=== PATIENT | female | born 1995 | race Caucasian/White ===

== ENCOUNTER 2022-12-06 12:33 | Observation (INO) ==
[2022-12-06] MEDS ORDERED: VANCOMYCIN HCL 2,250 MG in SODIUM CHLORIDE 0.9% 500 ML IV ONE (12:48)
[2022-12-06] MEDS ORDERED: AMPICILLIN/SULBACTAM SOD 3,000 MG in 0.9 % SODIUM CHLORIDE 100 ML IV STA (12:48)
[2022-12-06] MEDS ORDERED: VANCOMYCIN CONSULT ACTIVE PRN ×2 (12:48→21:04)
--- NOTE | 2022-12-06 12:52 | Emergency Department Note ---
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 This started this past Wednesday night. She was seen and evaluated on Wednesday. She was placed on eardrops. She was once again evaluated on as the swelling and redness had worsened and she had pain and swelling behind the ear. At that time she was placed on Augmentin. She followed up on Wednesday with the ENT down in [place] who recommended admission and IV antibiotics. She presented to [facility] and was discharged home with Augmentin again and she presents to the ER today as she had a culture which was MRSA positive. Patient notes that she still has a ton of pressure and cannot hear out of her ear as well as pain but believes that the redness has abated slightly. PAST MEDICAL HISTORY:See Below PAST SURGICAL HISTORY:See Below FAMILY HISTORY:See Below SOCIAL HISTORY:See Below HOME MEDICATIONS:See Below ALLERGIES:See Below VITALS:See Below PHYSICAL EXAMINATION: GENERAL: Sitting up in bed, alert, well appearing, well nourished, no distress, non-toxic EYE EXAM: normal conjunctiva. PERRL and EOM's grossly intact. EAR: Swelling over the right mastoid with faint erythema. Canal is swollen with erythema and purulence is noted behind the TM which is bulging. OROPHARYNX: no exudate, no erythema, lips, buccal mucosa, and tongue normal and mucous membranes are moist NECK: supple, no nuchal rigidity, no adenopathy, non-tender LUNGS: Clear to auscultation. Normal chest wall mechanics HEART: no murmurs, S1 normal and S2 normal ABDOMEN: abdomen soft, non-tender, normo-active bowel sounds, no masses, no rebound or guarding. UPPER EXTREMITIES: upper extremities are grossly normal. LOWER EXTREMITIES: No pitting edema. NEURO EXAM: Normal sensorium, cranial nerves II-XII grossly intact, normal speech, no gross weakness of arms, no gross weakness of legs. MEDICAL DECISION MAKING: Patient is a 26-year-old female who presents ER for above-stated complaint. IV was established blood work was obtained. On exam patient does appear to have a mastoiditis with swelling and tenderness behind the right ear with a small amount of erythema. Patient was discussed with Dr. Mckeon from ENT as the patient has had MRSA positive culture and does have mastoiditis. I notified her that I was admitting the patient to hospital service and she was in agreement. Patient was given IV Unasyn and IV vancomycin. She was updated at bedside. Labs show no significant leukocytosis. Mild anemia 11. BMP with mild hypokalemia 3.3. LFTs bilirubin was unremarkable. UA was contaminated. Patient is currently 16 weeks . She was discussed with the hospitalist for further evaluation management and treatment of mastoiditis. As the patient believes the erythema has improved slightly we will hold on any additional imaging and defer to ENT and the hospitalist. I did also see a picture of the patient's ear on one of my previous shifts and I do agree as well the erythema h as improved. Triage Nursing notes reviewed. Limited review of prior medical records performed Vital Signs: reviewed and remarkable for no significant abnormalities Differential diagnosis: Foreign body, otitis media, otitis externa, mastoiditis, tumor, trauma, TM perforation, as well as other pathologies. ER treatment provided: See below Diagnostics interpreted by me include EKG and cardiac monitoring as listed below: -Cardiac Monitoring: An order was placed for continuous cardiac monitoring. The monitor shows a rate of 92 with sinus rhythm. -ECG: none -Laboratory studies:Interpreted by me as stated above in MDM and shown below. Imaging studies: Xrays: As interpreted by me:none CTs show: none Consultation(s): As described in MDM Procedures:none Critical Care: None Past Med/Surg History Social History Smoking Status: Former smoker Tobacco Type: Cigarettes Preferred Language: Nauruan Feels Safe at Home: Yes Allergies Allergies Allergy/AdvReac Type Severity Reaction Status Date / Time nickel Allergy Intermediate Rash Verified 12/06/22 13:21 Cephalosporins Allergy Unknown CAN'T Verified 12/06/22 13:21 REMEMBER Home Meds Home Medications Medication Instructions Recorded Confirmed aspirin 81 mg chewable tablet 81 mg PO DAILY 12/03/22 12/06/22 vit no.133-ferrous 1 tab PO DAILY 12/03/22 12/06/22 fumarate 28 mg-folic acid 800 mcg tablet () Previous Rx's Medication Instructions Recorded amoxicillin 875 mg-potassium 1 tab PO BID 10 days #20 tabs 12/03/22 clavulanate 125 mg tablet Results & Data (ED) Vital Signs Vital Signs - 24 hr 12/06/22 12:35 12/06/22 15:32 Temperature 36.5 C Temperature Source Temporal Artery Scan Pulse Rate 106 H 95 H Respiratory Rate 20 18 Respiratory Effort / Characteristics Non-Labored Respiratory Depth Normal Blood Pressure 157/91 H 130/85 Blood Pressure Mean 113 Pulse Oximetry 100 99 Oxygen Delivery Method Room Air Room Air Sepsis Recent Fever Within 48 Hours No Sepsis New/Unexplained Change in Mental Status N/A Sepsis Action Taken by Nursing No Action Required Laboratory Data 12/06/22 13:10 12/06/22 13:10 Lab Results 12/06/22 12/06/22 12/06/22 Range/Units 13:10 13:10 13:10 WBC 9.86 (4.8-10.8) K/ul RBC 3.69 L (4.20-5.40) M/uL Hgb 11.7 L (12.0-16.0) g/dl Hct 33.4 L (37.0-47.0) % MCV 90.5 (80.0-100.0) fL MCH 31.7 (25.0-34.0) pg MCHC 35.0 (32.0-36.0) g/dL RDW Std Deviation 40.0 (36.4-46.3) fL RDW Coeff of Roz 12.1 (11.5-14.5) % Plt Count 309 (130-400) K/uL MPV 9.6 (9.4-12.4) fL Immature Gran % (Auto) 0.4 % Neut % (Auto) 74.2 % Lymph % (Auto) 20.9 % [place] % (Auto) 2.9 % Eos % (Auto) 1.3 % Baso % (Auto) 0.3 % Neut # (Auto) 7.31 H (1.40-6.50) K/uL Lymph # (Auto) 2.06 (1.2-3.4) K/uL [place] # (Auto) 0.29 (0.11-0.59) K/uL Eos # (Auto) 0.13 (0-0.50) K/uL Baso # (Auto) 0.03 (0-0.2) K/uL Immature Gran # (Auto) 0.04 (0.01-0.20) K/uL Sodium 136 (136-145) mmol/L Potassium 3.3 L (3.5-5.1) mmol/L Chloride 105 (98-107) mmol/L Carbon Dioxide 23 (21-32) mmol/L Anion Gap 8 (3-11) BUN 8 (6-23) mg/dl Creatinine 0.49 L (0.6-1.2) mg/dl Est Cr Clr Drug Dosing 203.0 ml/min Est GFR ( Amer) > 150.0 ml/min Est GFR (Non-Af Amer) 135.4 ml/min BUN/Creatinine Ratio 16.3 (10-20) Glucose 111 H (70-99(Fasting)) mg/dl Calcium 9.2 (8.6-10.3) mg/dl Total Bilirubin 0.2 (0.2-1.0) mg/dl AST 17 (13-39) U/L ALT 23 (7-52) U/L Alkaline Phosphatase 89 (34-104) U/L Total Protein 7.0 (6.0-8.3) gm/dl Albumin 3.7 (3.4-5.0) gm/dl Globulin 3.3 (2.5-4.0) gm/dl Albumin/Globulin Ratio 1.1 (0.9-2) Urine Color Yellow Urine Appearance Cloudy A (Clear) Urine pH 7.0 (4.5-7.5) Ur Specific [place] 1.023 (1.000-1.030) Urine Protein Negative (Negative) Urine Glucose (UA) Negative (Negative) Urine Ketones 1+ H (Negative) Urine Blood Negative (Negative) Urine Nitrite Negative (Negative) Urine Bilirubin Negative (Negative) Urine Urobilinogen Negative (Negative) Ur Leukocyte Esterase 1+ H (Negative) Urine WBC (Auto) >30 H (0-5) /hpf Urine RBC (Auto) 5-10 H (0-4) /hpf U Hyaline Cast (Auto) 1-5 (0-5) /lpf U Epithel Cells (Auto) >30 H (0-5) /lpf Urine Bacteria (Auto) 2+ H (Negative) Urine Yeast Budding w/ Hyphae A (None Prsent) Administered Medications Discontinued Medications Vancomycin HCl 2,250 mg/ (Sodium Chloride) 545 mls @ 200 mls/hr IV NOW ONE Stop: 12/06/22 15:31 Last Admin: 12/06/22 14:04 Dose: 200 mls/hr Documented By: WILMAR Ampicillin Sodium/Sulbactam Sodium 3,000 mg/ Sodium Chloride 108 mls @ 200 mls/hr IV NOW STA; Protocol Stop: 12/06/22 13:20 Last Infusion: 12/06/22 14:18 Dose: 0 mls/hr Documented By: Admin: 12/06/22 13:25 Dose: 200 mls/hr Documented By: AMANDA Discharge Plan Visit Data Chief Complaint: Ear Pain/Problem Stated Complaint: RIGHT EAR PAIN - CALLED BY ER FOR ANTIBIOTICS ED Provider: Chang Vo Discharge Problem: Mastoiditis Discharge Instructions Interventions: ED Discharge Assessment Last Done: 12/06/22 15:32 Forms Stand Alone Forms: My [facility] [place] [employer] Prescriptions Prescriptions: No Action aspirin 81 mg Tablet,Chewable 81 mg PO DAILY 28-800 mg-mcg Tablet 1 tab PO DAILY amoxicillin-pot clavulanate 875-125 mg tablet 1 tab PO BID 10 Days Qty: 20 0RF Rx Instructions: PER PT "TOLD TO STOP MED, THEN TOLD TO KEEP TAKING". Start Date 12/04/22 - End Date 12/14/22 Referrals Referrals: Froy Carpenter [Primary Care Provider] -
[2022-12-06 13:33] LABS: Basophils # (auto) 0.03 K/uL (0-0.2); Basophils % (auto) 0.3 %; Eosinophils # (auto) 0.13 K/uL (0-0.50); Eosinophils % (auto) 1.3 %; Hematocrit (blood only) 33.4 % (37.0-47.0); Hemoglobin 11.7 g/dl (12.0-16.0); Immature Granulocytes # (auto) 0.04 K/uL (0.01-0.20); Immature Granulocytes % (auto) 0.4 %; Lymphocytes # (auto) 2.06 K/uL (1.2-3.4); Lymphocytes % (auto) 20.9 %; Mean Corpuscular Hemoglobin 31.7 pg (25.0-34.0); Mean Corpuscular Volume 90.5 fL (80.0-100.0); Mean Platelet Volume 9.6 fL (9.4-12.4); Monocytes # (auto) 0.29 K/uL (0.11-0.59); Monocytes % (auto) 2.9 %; Neutrophils # (auto) 7.31 K/uL (1.40-6.50); Neutrophils % (auto) 74.2 %; Platelet Count 309 K/uL (130-400); RDW Coefficient of Variation 12.1 % (11.5-14.5); Red Blood Count 3.69 M/uL (4.20-5.40); White Blood Count 9.86 K/ul (4.8-10.8)
[2022-12-06 13:40] LABS: Appearance Urine Cloudy (Clear); Bilirubin Urine Negative (Negative); Blood Urine Negative (Negative); Color Urine Yellow; Epithelial Cell Urine Auto >30 /lpf (0-5); Glucose Urine UA Negative (Negative); Ketones Urine 1+ (Negative); Leukocyte Esterase Urine 1+ (Negative); Nitrite Urine Negative (Negative); Protein Urine Negative (Negative); Specific Gravity Urine 1.023 (1.000-1.030); Urobilinogen Urine Negative (Negative); WBC Urine Automated >30 /hpf (0-5)
--- NOTE | 2022-12-06 13:44 | History & Physical Report ---
Date of Service December 06, 2022 Assessment & Plan (1) Otitis media of right ear: Plan: Acute otitis media, right mastoiditis No leukocytosis No evidence of intracranial thrombosis/abscess. Thin sliver of superior right ear temporal scalp fluid favoring edema but from which abscess cannot be ruled out as noted below broad coverage with additional MRSA coverage given culture positive with Unasyn/vancomycin CThead: 1. There is skin thickening within the cartilaginous portion of the right external auditory canal and right ear with surrounding fat stranding. Subcutaneous fat stranding/edema abuts the right mastoid bone. This favors a cellulitis. An otitis externa could also have a similar appearance. 2. Thin sliver of subcutaneous fluid superior to the right ear within the right temporal scalp. This measures 3 mm in thickness and 3.5 cm in length. This favors soft tissue edema from the infectious process. A small developing subcutaneous abscess could also have a similar appearance. 3. There are few mildly enlarged right parotid lymph nodes measuring up to 8 mm in short axis diameter. These may be reactive. 4. There is moderate narrowing of the right external auditory canal. There are a few partially opacified right mastoid air cells. No erosive changes identified within the right mastoid air cells or middle ear cavity. 5. Near-complete opacification of the right middle air cavity with a trace right mastoid effusion. This favors an otitis media. - ENT: Dr. Guerrero consulted while in ER inpatient abx, no surgery or inpatient ENT consult required at this time. If patient improves can follow-up as outpatient, if worsening or signs of abscess will need inpatient ENT consult Continue Unasyn/vancomycin. Discussed of risks/benefits with the patient at bedside. Agreeable to treatment Admit to medical surgical Tylenol as needed for fever Regular diet First , G1, P0 and second trimester ADD 05/22/2023 Approximately 16 weeks, now in second trimester Follows with [facility] Del [facility] Recommended for aspirin 81 mg daily due to increased risk per last note review Per patient request OB notified of patient's admission. We will add daily heart tones while inpatient, no acute OB concerns/requirements at this Continue aspirin daily DVT prophylaxis: SCDs, patient on aspirin 8 daily Disposition: Medical/surgical CODE STATUS: Full code Diet: Regular (2) Mastoiditis: (3) : (4) Second trimester : History of Present Illness Primary Care Provider: Froy Gibbs is a 26-year-old female who presents for worsening right ear pain. She reports that she has had a problem with recurrent ear infections feeling antibiotics in the last few weeks, no prior history of recurrent ear infections before this year. No history of recurrent infections otherwise as an adult. She is seen in the ER 5 days ago and placed on eardrops. Symptoms worsened 3-4 days ago, and patient was switched to Augmentin. She did see ENT [facility] Wednesday who recommended admission and IV antibiotics at that time. She presented to [facility] and was discharged home with a additional course of Augmentin, and she returns to the ER with MRSA positive culture, worsening pressure and hearing loss in the ER. She was recommended for admission for IV antibiotics given MRSA culture and continued worsening symptoms with concern for mastoiditis. On clinical exam mastoid is with erythema, TM is bulging with erythema and purulence. Her pain is 2/10 currently, she reports this is improved from the worst which was 810/10 several days ago. She is not currently having fever, chills, sweats. No chest pain or chest pressure no nausea/vomiting. Her ear feels full with diminished hearing out of the right ear. She is 16weeks sees [facility] del rosario. This is her first . no prior history of blood clots or miscarriages. Records requested. No prior history of miscarriages, bleeding, clots no prior history of immunodeficiency or autoimmune disease No fevers, chills sweats Medical History: Reviewed Medications: Reviewed Surgical History: Reviewed Family history: Reviewed Allergies: Reviewed Social History: Former tobacco use, no recent tobacco or etoh use Code Status: Full Code Allergies Allergy/AdvReac Type Severity Reaction Status Date / Time nickel Allergy Intermediate Rash Verified 12/06/22 13:21 Cephalosporins Allergy Unknown CAN'T Verified 12/06/22 13:21 REMEMBER Home Medications Medication Instructions Recorded Confirmed Type amoxicillin 875 mg-potassium 1 tab PO BID 10 days #20 tabs 12/03/22 12/06/22 Rx clavulanate 125 mg tablet aspirin 81 mg chewable tablet 81 mg PO DAILY 12/03/22 12/06/22 History vit no.133-ferrous 1 tab PO DAILY 12/03/22 12/06/22 History fumarate 28 mg-folic acid 800 mcg tablet () Past Med/Surg History Social History Smoking Status: Former smoker Tobacco Type: Cigarettes Preferred Language: Citizen Of [place] Feels Safe at Home: Yes Physical Exam Physical Exam: General: A&Ox3. NAD. Cooperative. HEENT: Atraumatic, normocephalic. Vision/hearing grossly intact. Right TM bulging with purulence. Right mastoid with slight swelling, scant erythema, and pressure-like feeling to palpation "1/10 "pain on palpation Pulm: CTAB A&P. -wheezes, -rales, -rhonchi. Symmetrical chest rise. No increased work of breathing. No respiratory distress. Cardiac: RRR, -mrg. Radial pulses intact and symmetrical. Abdominal: Nontender, softly distended, soft. BS present.. Patient approximately 16 weeks . Extremities: Warm, dry Results & Data Results & Data Vital Signs (Past 12 Hours) Vital Signs Temp Pulse Resp BP Pulse Ox O2 Del Method 12/06/22 12:35 36.5 C 106 H 20 157/91 H 100 Room Air PG Care Time/CCT Total # of Minutes Spent Total Time Spent with Patient: Total time spent is greater than 50% in coordination of care (as documented) at patient's floor/unit and/or counseling patient: Coding Level of Care Code 48377 INT INP/OBS CARE 3/75MIN Diagnoses Otitis media of right ear H66.91 Mastoiditis H70.90 Z34.90 Second trimester Z34.92
[2022-12-06 13:54] LABS: Alanine Aminotransferase 23 U/L (7-52); Albumin Globulin Ratio 1.1 (0.9-2); Albumin Level 3.7 gm/dl (3.4-5.0); Alkaline Phosphatase 89 U/L (34-104); Anion Gap 8 (3-11); Aspartate Aminotransferase 17 U/L (13-39); BUN Creatinine Ratio 16.3 (10-20); Bilirubin,Total 0.2 mg/dl (0.2-1.0); Blood Urea Nitrogen 8 mg/dl (6-23); Calcium 9.2 mg/dl (8.6-10.3); Carbon Dioxide 23 mmol/L (21-32); Chloride 105 mmol/L (98-107); Est GFR (African American) > 150.0 ml/min; Est GFR (Non-African American) 135.4 ml/min; Globulin 3.3 gm/dl (2.5-4.0); Glucose 111 mg/dl (70-99(Fasting)); Potassium 3.3 mmol/L (3.5-5.1); Sodium 136 mmol/L (136-145)
[2022-12-06 14:08] LABS: Bacteria Urine Automated 2+ (Negative)
[2022-12-06] MEDS ORDERED: diphenhydrAMINE 50 MG/ML VIAL IV STA (16:03)
[2022-12-06] MEDS ORDERED: FAMOTIDINE 20 MG in SYRINGE 3 ML IV ONE (16:04)
--- NOTE | 2022-12-06 17:11 | Pharmacy Report ---
Pharmacy PK ABX Note - Date of Service December 06, 2022 - Assessment and Plan Assessment 26 year old F receiving Unasyn and vancomycin for treatment of otitis externa, mastoiditis. 12/04 ear culture (+) MRSA (culture obtained while patient was on Augmentin). Renal function stable. 16 weeks . Day #1 of antimicrobial therapy. Plan Vancomycin * Loading dose: 2250 mg IV x 1 * Developed Red Man's during loading dose infusion -- will reduce rates of maintenance doses. * Although AUC monitoring is preferred, is an exclusion. * Maintenance dose: 1500 mg (~14mg/kg) IV every 12 hours due to likely accumulation * Will obtain a trough prior to the 4th dose Pharmacy will continue to follow and will adjust dose/frequency as necessary. Thank you.
[2022-12-06] MEDS ORDERED: ACETAMINOPHEN 325 MG TAB PO PRN (21:04)
[2022-12-06] MEDS: AMPICILLIN/SULBACTAM SOD 3,000 MG in 0.9 % SODIUM CHLORIDE 100 ML IV SCH (21:32)
[2022-12-07] MEDS ORDERED: VANCOMYCIN HCL 1,500 MG in SODIUM CHLORIDE 0.9% 500 ML IV SCH ×2 (04:00)
[2022-12-07] MEDS: AMPICILLIN/SULBACTAM SOD 3,000 MG in 0.9 % SODIUM CHLORIDE 100 ML IV SCH ×4 (04:17→21:54)
[2022-12-07] MEDS: VANCOMYCIN HCL 1,500 MG in SODIUM CHLORIDE 0.9% 500 ML IV SCH ×2 (05:57→16:43)
[2022-12-07 06:33] LABS: Basophils # (auto) 0.05 K/uL (0-0.2); Basophils % (auto) 0.6 %; Eosinophils # (auto) 0.23 K/uL (0-0.50); Eosinophils % (auto) 2.7 %; Hematocrit (blood only) 29.5 % (37.0-47.0); Hemoglobin 10.4 g/dl (12.0-16.0); Immature Granulocytes # (auto) 0.03 K/uL (0.01-0.20); Immature Granulocytes % (auto) 0.4 %; Lymphocytes # (auto) 2.28 K/uL (1.2-3.4); Mean Corpuscular Hemoglobin 31.3 pg (25.0-34.0); Mean Corpuscular Hgb Conc 35.3 g/dL (32.0-36.0); Mean Corpuscular Volume 88.9 fL (80.0-100.0); Mean Platelet Volume 9.3 fL (9.4-12.4); Monocytes # (auto) 0.44 K/uL (0.11-0.59); Monocytes % (auto) 5.2 %; Neutrophils % (auto) 64.1 %; Platelet Count 273 K/uL (130-400); RDW Standard Deviation 38.6 fL (36.4-46.3); Red Blood Count 3.32 M/uL (4.20-5.40); White Blood Count 8.43 K/ul (4.8-10.8)
[2022-12-07 06:57] LABS: Anion Gap 8 (3-11); BUN Creatinine Ratio 16.7 (10-20); Blood Urea Nitrogen 6 mg/dl (6-23); Calcium 8.3 mg/dl (8.6-10.3); Carbon Dioxide 22 mmol/L (21-32); Chloride 107 mmol/L (98-107); Creatinine Clr Calc Pharmacy 276.3 ml/min; Est GFR (African American) > 150.0 ml/min; Est GFR (Non-African American) 149.9 ml/min; Glucose 79 mg/dl (70-99(Fasting)); Potassium 3.3 mmol/L (3.5-5.1); Sodium 137 mmol/L (136-145)
[2022-12-07] MEDS: ASPIRIN 81 MG ECTAB PO SCH (09:32)
[2022-12-07] MEDS: POTASSIUM CHLORIDE CRTAB 20 MEQ TABCR PO SCH (10:37)
[2022-12-07] MEDS: PRENATAL VITAMIN 1 TAB PO SCH (10:38)
--- NOTE | 2022-12-07 14:22 | Hospitalist Progress Note ---
Date of Service December 07, 2022 Assessment & Plan (1) Otitis media of right ear: Plan: clinically improving leukocytosis resolved no fevers cont IV unasyn cont IV vanco tylenol prn pain at discharge transition to PO clindamycin to cover typical pathogens + MRSA? will need f/u with [facility] post-discharge (2) Otitis externa of right ear: Plan: clinically improved cont IV abx as above will examine the ear canal tomorrow will need ENT f/u post-discharge (3) Mastoiditis: Plan: right clinically resolved, or she never had such to begin with mastoid process on right is normal today (4) : Plan: 16 weeks heart tones daily f/u [facility] post-discharge (5) Second trimester : Plan: add back PNV (6) Hypokalemia: Plan: replace repeat BMP am (7) Candiduria: Plan: no UTI symptoms will simply repeat the urine culture rather than starting Rx Plan d/c tomorrow? Admission and Anticipated Discharge Date Admission Date: December 06, 2022 Subjective right ear pain improved right ear canal pain improved right mastoid discomfort resolved no fevers feeling much better overall eating well denies any urinary symptoms pt reports having had multiple rounds of antibiotic drops for the right ear over the last few months also treated for AOM b/l at some point in the last few months as well prior to this only had AOM randomly over her lifetime Review of Systems Review of Systems: gen - no fevers or chills cv - no chest pain pulm - no dyspnea or cough HENT - no sinus pain or sinus congestion GI - no abd pain or N/V/Diarrhea - no dysuria 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 - 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 Physical Exam Physical Exam: gen - obese, NAD, nontoxic head - NO TENDERNESS To palpation over the right mastoid process; NO swelling over the right mastoid process; no swelling over the right scalp; no ear assymmetry HENT - right ear - no pain to palpation of tragus or with manipulation of pinnae; no ear canal drainage or purulence sinuses - no tenderness to palpation over any sinus mouth- MMM heart - RRR, s1 s2 lungs - CTA b/l abd - soft NT ND BS+ ext - no edema, pulses 2+ b/l Results & Data Results & Data Vital Signs (Past 12 Hours) Vital Signs Temp Pulse Pulse Resp BP Pulse Ox O2 Del Method 08/14/23 10:54 36.8 C 83 14 114/75 98 Room Air 12/07/22 07:53 85 12/07/22 07:27 37.0 C 90 14 113/76 98 Room Air 12/07/22 03:27 36.9 C 89 18 116/73 98 Room Air Laboratory Results Laboratory Results - last 24 hr 12/07/22 12/07/22 06:17 06:17 WBC 8.43 RBC 3.32 L Hgb 10.4 L Hct 29.5 L MCV 88.9 MCH 31.3 MCHC 35.3 RDW Std Deviation 38.6 RDW Coeff of Roz 12.0 Plt Count 273 MPV 9.3 L Immature Gran % (Auto) 0.4 Neut % (Auto) 64.1 Lymph % (Auto) 27.0 [place] % (Auto) 5.2 Eos % (Auto) 2.7 Baso % (Auto) 0.6 Neut # (Auto) 5.40 Lymph # (Auto) 2.28 [place] # (Auto) 0.44 Eos # (Auto) 0.23 Baso # (Auto) 0.05 Immature Gran # (Auto) 0.03 Sodium 137 Potassium 3.3 L Chloride 107 Carbon Dioxide 22 Anion Gap 8 BUN 6 Creatinine 0.36 L Est Cr Clr Drug Dosing 276.3 Est GFR ( Amer) > 150.0 Est GFR (Non-Af Amer) 149.9 BUN/Creatinine Ratio 16.7 Glucose 79 Calcium 8.3 L PG Care Time/CCT Total # of Minutes Spent Total Time Spent with Patient: Total time spent is greater than 50% in coordination of care (as documented) at patient's floor/unit and/or counseling patient: Coding Level of Care Code 99365 SUB INP/OBS CARE 2MIN Diagnoses Otitis media of right ear H66.91 Otitis externa of right ear H60.501 Chronicity: acute Otitis externa type: unspecified type Mastoiditis H70.90 Z34.90 Second trimester Z34.92 Hypokalemia E87.6 Candiduria B37.49 (2) Otitis externa of right ear Chronicity: acute Otitis externa type: unspecified type Qualified Code(s): H60.501 - Unspecified acute noninfective otitis externa, right ear
[2022-12-07 21:30] LABS: Appearance Urine Clear (Clear); Bacteria Urine Automated Negative (Negative); Bilirubin Urine Negative (Negative); Blood Urine Negative (Negative); Cast Urine Automated 0 /lpf (0-5); Color Urine Yellow; Epithelial Cell Urine Auto >30 /lpf (0-5); Glucose Urine UA Negative (Negative); Ketones Urine Negative (Negative); Leukocyte Esterase Urine 1+ (Negative); Nitrite Urine Negative (Negative); Protein Urine Negative (Negative); RBC Urine Automated 0-4 /hpf (0-4); Specific Gravity Urine 1.016 (1.000-1.030); Urobilinogen Urine Negative (Negative); pH Urine 7.5 (4.5-7.5)
[2022-12-08] MEDS: AMPICILLIN/SULBACTAM SOD 3,000 MG in 0.9 % SODIUM CHLORIDE 100 ML IV SCH ×2 (03:00→12:08)
[2022-12-08] MEDS ORDERED: VANCOMYCIN LEVEL ONE (05:00)
[2022-12-08] MEDS: VANCOMYCIN HCL 1,500 MG in SODIUM CHLORIDE 0.9% 500 ML IV SCH (05:57)
[2022-12-08 06:23] LABS: Anion Gap 8 (3-11); BUN Creatinine Ratio 15.9 (10-20); Blood Urea Nitrogen 7 mg/dl (6-23); Calcium 8.5 mg/dl (8.6-10.3); Carbon Dioxide 21 mmol/L (21-32); Chloride 108 mmol/L (98-107); Est GFR (African American) > 150.0 ml/min; Est GFR (Non-African American) 140.3 ml/min; Glucose 80 mg/dl (70-99(Fasting)); Magnesium 1.7 mg/dl (1.7-2.4); Potassium 3.6 mmol/L (3.5-5.1); Sodium 137 mmol/L (136-145)
[2022-12-08] MEDS: POTASSIUM CHLORIDE CRTAB 20 MEQ TABCR PO SCH (08:27)
[2022-12-08] MEDS: ASPIRIN 81 MG ECTAB PO SCH (08:27)
[2022-12-08] MEDS: PRENATAL VITAMIN 1 TAB PO SCH (08:27)
--- NOTE | 2022-12-08 10:13 | Infectious Disease Consult ---
Date of Consultation December 08, 2022 Assessment & Plan (1) Otitis externa of right ear: (2) Otitis media of right ear: Plan Micro: 12/04 R ear cx: MRSA plus low counts of probable skin phan (S clinda, tetra, TMP/SMX) Abx: Vancomycin 12/06 - present Unasyn 12/06 - present Amox/clav 12/03 - 12/05 Ciprodex drops 12/02 - ?12/05 Problems: #R otitis externa, otitis media #R ear cellulitis #Antibiotic allergies: cephalosporin--cannot remember reaction, vancomycin--rash 26 yo (~16 weeks) F with history of eczematous otitis externa who presented on 12/06 with right ear pain, drainage, swelling. She had presented to the ED on 12/02 with these symptoms and was prescribed Ciprodex drops for otitis externa. She had worsening symptoms and presented on 12/03, at which time labs showed WBC 14.[address] head/mastoid showed likely cellulitis of R ear, near complete opacification of R middle ear cavity with trace R mastoid effusion, favoring otitis media. She was discharged with Augmentin x 10 days. She was seen in ENT clinic on 12/04 and noted to have cellulitis of R ear and postauricularly, and was advised to present to the ED for IV antibiotics. In the ED on 12/04, a R ear culture was taken, and the pt was discharged home. She was called back for admission on 12/06 because the R ear culture grew MRSA. On presentation, pt was afebrile without leukocytosis. She was started on IV vancomycin and Unasyn, and has improved significantly. No concerns for acute coalescent mastoiditis on exam. Recommendations: -Can discharge with clindamycin 450 mg PO q8h x 7 days to cover MRSA -Should finish previously prescribed course of Augmentin 875 mg PO BID (should have around a week left) to cover other frequent causes of otitis media Will sign off. Please page [facility] Center with further questions. Consultation Information Consultation was provided via telemedicine using two-way real-time interactive telecommunication between the patient and the telemedicine provider. For the duration of the visit, the provider was performing the assessment from a different facility than the patient. This includesuse of bluetooth stethoscope forauscultationperformed by the telepresenter that the telemedicine provider can hear if described in the physical exam. Etl Manager contact information: Please call [facility] . (Phone Number For Physician Use Only) After establishing a telemedicine visit, patient was: Patient was verified with two unique identifiers, Patient/authorized rep acknowledged consent and understanding and Gave permission to continue telehealth session Time Spent with Patient: Initial => 40 min History of Present Illness Reason for Consultation: Otitis Requesting Physician: Dr. Filiberto Means Attending Physician: Filiberto Means MD History of Present Illness 26 yo F with history of eczematous otitis externa who presented on 12/06 with right ear pain, drainage, swelling. She has been seen in the ED multiple times for this recently. She initially presented on 12/02 for the symptoms. She was noted to have right ear canal erythema and edema, no obvious otitis media, and was prescribed Ciprodex drops. She presented again 12/03 with worsening symptoms. Labs showed WBC 14.4. Exam was notable for erythema, edema, purulent debris in the external ear canal. A CT head/mastoid showed skin thickening within the cartilaginous portion of the right external auditory canal and right ear with surrounding fat stranding, subcutaneous fat stranding/edema abuts the right mastoid bone, favoring cellulitis, otitis externa could also have a similar appearance. Also showed a thin sliver of subcutaneous fluid superior to the right ear, favoring soft tissue edema, also consider small developing subcutaneous abscess. Near complete opacification of right middle ear cavity with trace right mastoid effusion, favoring otitis media. She was discharged with p.o. Augmentin x10 days and advised to follow-up with ENT. She was seen in ENT clinic in [place] on 12/04 and was noted to have cellulitis of the right ear and postauricularly. She was advised to present to the ED for IV antibiotics. She presented back to [facility] ED that afternoon, and was discharged to outpatient management since she was improving. A right ear culture was taken at that time, which ended up growing MRSA. She was therefore called back to the ED on 12/06, and admitted for IV antibiotics. On presentation, patient was afebrile, VSS. Labs showed WBC 9.6. She was started on IV vancomycin and Unasyn. On my evaluation, patient reports she is feeling much better. Her right ear erythema, pain, swelling are significantly improved. Pt is followed by ENT, and she was diagnosed with eczematous otitis externa in Apr 2022. She was advised to start Elocon ointment, which she has been using since then. She denies any antibiotic use since starting ointment use, up to now. Allergies Allergy/AdvReac Type Severity Reaction Status Date / Time nickel Allergy Intermediate Rash Verified 12/06/22 13:21 Cephalosporins Allergy Unknown CAN'T Verified 12/06/22 13:21 REMEMBER vancomycin AdvReac Intermediate Rash Verified 12/06/22 16:28 Home Medications Medication Instructions Recorded Confirmed Type amoxicillin 875 mg-potassium 1 tab PO BID 10 days #20 tabs 12/03/22 12/06/22 Rx clavulanate 125 mg tablet aspirin 81 mg chewable tablet 81 mg PO DAILY 12/03/22 12/06/22 History vit no.133-ferrous 1 tab PO DAILY 12/03/22 12/06/22 History fumarate 28 mg-folic acid 800 mcg tablet () Patient History Social History Smoking Status: Former smoker Tobacco Type: Cigarettes Second Hand Exposure: No; Do You Dip or Chew Tobacco: No; Tobacco Cessation Education Requested by Patient: No Hx Alcohol Use: No Hx Substance Use: No Preferred Language: Czech Communication Ability: Effective Director Talent Management Required: No Beliefs That Will Affect Care: None Current Living Situation: Significant Other Other Information That Helps Us Care for You: No Feels Safe at Home: Yes Safety Concerns: Feels Safe At This Time Assistive Devices: None Review of System A complete ROS was performed and is negative except as mentioned in the HPI. Physical Exam Physical Exam: GEN: Well-appearing, in NAD. HEENT: Normocephalic, atraumatic. R auricle with mild erythema. No tenderness with manipulation of R auricle. No mastoid tenderness to palpation. RESP: No increased work of breathing NEURO: Alert and oriented. Answers all questions appropriately. Speech not slurred. PSYCH: Normal mood, affect appropriate. Results & Data Vital Signs (Past 12 Hours) Vital Signs Temp Pulse Pulse Resp BP BP Pulse Ox 12/08/22 08:06 36.7 C 84 18 137/70 97 12/08/22 07:43 85 12/08/22 03:30 36.6 C 85 18 101/63 96 12/08/22 00:48 36.8 C 92 H 20 136/83 97 12/07/22 23:15 83 O2 Del Method 12/08/22 08:06 Room Air 12/08/22 07:43 12/08/22 03:30 Room Air 12/08/22 00:48 Room Air 12/07/22 23:15 Laboratory Results [facility] 12/08/22 05:41 Sodium 137 Potassium 3.6 Chloride 108 H Carbon Dioxide 21 BUN 7 Creatinine 0.44 L Glucose 80 Calcium 8.5 L Urine 12/07/22 Range/Units 21:15 Urine Color Yellow Urine Appearance Clear (Clear) Urine pH 7.5 (4.5-7.5) Ur Specific [place] 1.016 (1.000-1.030) Urine Protein Negative (Negative) Urine Glucose (UA) Negative (Negative) Medications Administered Current Inpatient Medications Acetaminophen (Acetaminophen 325 Mg Tab) 650 mg PO Q4H PRN PRN Reason: pain/fever Stop: 01/05/23 21:03 Last Admin: 12/07/22 04:30 Dose: 650 mg Aspirin (Aspirin 81 Mg Ectab) 81 mg PO DAILY [facility] Stop: 01/06/23 08:59 Last Admin: 12/08/22 08:27 Dose: 81 mg Vancomycin HCl 1,500 mg/ (Sodium Chloride) 530 mls @ 100 mls/hr IV Q12H [facility] Stop: 12/08/22 12:00 Last Admin: 12/08/22 05:57 Dose: 100 mls/hr Ampicillin Sodium/Sulbactam Sodium 3,000 mg/ Sodium Chloride 108 mls @ 200 mls/hr IV Q6H [facility]; Protocol Stop: 12/16/22 21:59 Last Infusion: 12/08/22 03:40 Dose: Infused Clindamycin Phosphate (Cleocin/D5w) 600 mg in 50 mls @ 100 mls/hr IV Q8H [facility] Stop: 12/18/22 11:59 Potassium Chloride (Potassium Chloride Crtab 20 Meq Tabcr) 20 meq PO QAM [facility] Stop: 01/06/23 10:14 Last Admin: 12/08/22 08:27 Dose: 20 meq Prenat Multivit/[place]/Iron/Folic Ac ( Vitamin 1 Tab) 1 tab PO QAM [facility] Stop: 01/06/23 10:14 Last Admin: 12/08/22 08:27 Dose: 1 tab (1) Otitis externa of right ear Chronicity: acute Otitis externa type: unspecified type Qualified Code(s): H60.501 - Unspecified acute noninfective otitis externa, right ear
[2022-12-08] MEDS ORDERED: CLINDAMYCIN/D5W 600 MG/50 ML PREMIX BAG IV SCH (12:00)
--- NOTE | 2022-12-08 12:25 | Discharge Summary ---
Date of Service December 08, 2022 Admission HPI Per Admitting Provider Bernie is a 26-year-old female who presents for worsening right ear pain. She reports that she has had a problem with recurrent ear infections feeling antibiotics in the last few weeks, no prior history of recurrent ear infections before this year. No history of recurrent infections otherwise as an adult. She is seen in the ER 5 days ago and placed on eardrops. Symptoms worsened 3-4 days ago, and patient was switched to Augmentin. She did see ENT [facility] Wednesday who recommended admission and IV antibiotics at that time. She presented to [facility] and was discharged home with a additional course of Augmentin, and she returns to the ER with MRSA positive culture, worsening pressure and hearing loss in the ER. She was recommended for admission for IV antibiotics given MRSA culture and continued worsening symptoms with concern for mastoiditis. On clinical exam mastoid is with erythema, TM is bulging with erythema and purulence. Her pain is 2/10 currently, she reports this is improved from the worst which was 810/10 several days ago. She is not currently having fever, chills, sweats. No chest pain or chest pressure no nausea/vomiting. Her ear feels full with diminished hearing out of the right ear. She is 16weeks sees [facility]. This is her first . no prior history of blood clots or miscarriages. Records requested. No prior history of miscarriages, bleeding, clots no prior history of immunodeficiency or autoimmune disease No fevers, chills sweats Medical History: Reviewed Medications: Reviewed Surgical History: Reviewed Family history: Reviewed Allergies: Reviewed Social History: Former tobacco use, no recent tobacco or etoh use Code Status: Full Code Discharge Exam gen - obese, NAD, nontoxic head - NO TENDERNESS To palpation over the right mastoid process; NO swelling over the right mastoid process; no swelling over the right scalp; no ear assymmetry HENT - right ear - no pain to palpation of tragus or with manipulation of pinnae; no ear canal drainage or purulence sinuses - no tenderness to palpation over any sinus mouth- MMM heart - RRR, s1 s2 lungs - CTA b/l abd - soft NT ND BS+ ext - no edema, pulses 2+ b/l Discharge Data Allergies Allergy/AdvReac Type Severity Reaction Status Date / Time nickel Allergy Intermediate Rash Verified 12/06/22 13:21 Cephalosporins Allergy Unknown CAN'T Verified 12/06/22 13:21 REMEMBER vancomycin AdvReac Intermediate Rash Verified 12/06/22 16:28 Consultations 12/06/22 13:10 ED Decision to Admit Stat 12/08/22 09:24 Consult Infectious Diseases Routine 12/08/22 11:32 Burn CD for patient Routine Hospital Course (1) Otitis media of right ear: clinically improving leukocytosis resolved no fevers cont IV unasyn cont IV vanco tylenol prn pain at discharge transition to PO clindamycin to cover typical pathogens + MRSA? will need f/u with [facility] post-discharge (2) Otitis externa of right ear: clinically improved cont IV abx as above will examine the ear canal tomorrow will need ENT f/u post-discharge (3) Mastoiditis: right clinically resolved, or she never had such to begin with mastoid process on right is normal today (4) : 16 weeks heart tones daily f/u [facility] post-discharge (5) Second trimester : add back PNV (6) Hypokalemia: replace repeat BMP am (7) Candiduria: no UTI symptoms will simply repeat the urine culture rather than starting Rx Plan d/c tomorrow? Discharge Plan Discharge Items Patient Disposition: Home - Self-Care Reason For Visit: right sided ear infection Discharge Diagnosis: 1. right sided ear infection ("acute otitis media") - improved 2. right sided swimmer's ear ("acute otitis externa") - improved 3. concern for right-sided mastoiditis - ruled out Activity: Resume your previous activity Non-emergency contact: Primary Care Provider, Specialist and Tours Hostess Call non-emergency contact if: you have any medication questions, your symptoms worsen, your pain is not controlled, your pain is unusual for you, your pain is concerning for you and you have a fever Follow-up/Referrals: [facility] [Provider Group] (keep scheduled appointment with your OB provider later this month) Froy Carpenter [Primary Care Provider] - (PLEASE CALL YOUR PRIMARY CARE PROVIDER TO SCHEDULE A FOLLOW-UP DISCHARGE APPOINTMENT WITHIN 7-10 DAYS) Shirlene Lanier PA-C [Physician Spinning Doffer] - 03/08/23 8:00 am (YOU HAVE BEEN PUT ON THE WAIT/CANCELLATION LIST IF AN EARLIER APPOINTMENT BECOMES AVAILABLE) Cindy Mckeon MD [Surgeon] - (follow-up 1 week for R AOM and R otitis externa) Diet: Regular Addtl Attending Provider Instructions: Ms Samuel, You were hospitalized due to a severe right-sided ear infection as well as right-sided ear canal infection (swimmer's ear). The culture from the debris from the right ear canal grew MRSA (resistant staph infection). You improved nicely with IV antibiotics. Infectious diseases saw you in consult and recommended the following - * please finish your course of amoxicillin-clavulanate 875mg twice daily; take for 7 days; you should have this antibiotic already at home; start this tonight * clindamycin 450mg every 8 hours for 7 days, first dose upon arrival home today; prescription sent to [facility] for you In addition, please use the ciprodex ear drops that you already have at home. Place 4 drops in the right ear canal and do this twice a day for 3 days only. You can start this tonight. Eat plenty of yogurt over the next 10 days. This may prevent diarrhea from the 2 antibiotics you will be taking at home. Continue your vitamin as previous. For any pain/discomfort you can take [id number] tylenol 1000mg every 6 hours as needed, maximum 3000mg in 24 hours. DO NOT TAKE any [id number] anti-inflammatory medication such as motrin, ibuprofen, aleve, or naprosyn. Follow-up - see separate section Return to [facility] if - * you have fevers over 100 degrees * you develop severe diarrhea * you develop recurrent ear pain, ear drainage, pain behind your right ear on your scalp, etc * any concerns regarding your baby * any other issues that are concerning to you It was our pleasure to care for you! -Dr Means Pending Studies at Discharge: No Stand-Alone Forms: My [facility] [employer], Work/School Release, Smoking Cessation Medications and DC Order Prescriptions: New clindamycin HCl 150 mg capsule 450 mg PO Q8H 7 Days Qty: 63 0RF ciprofloxacin-dexamethasone [Ciprodex] 0.3-0.1 % drops,suspension 4 drp otic (ear) BID 3 Days Qty: 7.5 0RF Rx Instructions: apply to right ear canal only. Continued aspirin 81 mg Tablet,Chewable 81 mg PO DAILY 28-800 mg-mcg Tablet 1 tab PO DAILY amoxicillin-pot clavulanate 875-125 mg tablet 1 tab PO BID 7 Days Qty: 14 0RF Discharge Orders: Discharge Order (Routine); Ordered 12/08/22 Ordered By: Filiberto Means Admission Data Admit Date/Time: 12/06/22 14:19 Attending Provider: Filiberto Means Admit Provider: Milton Myers Primary Care Provider: Froy Carpenter Other Providers: Milton Myers ; Tati Rice ; Ritchie Hawkins ; María Alonzo ; Lou Solorio ; Shelbie Mace ; Kaycee Fernandez ; Angeline Tipton ; Loreto Medellin ; Ophelia Starkey Coding Diagnoses Otitis media of right ear H66.91 Otitis externa of right ear H60.501 Chronicity: acute Otitis externa type: unspecified type Mastoiditis H70.90 Z34.90 Second trimester Z34.92 Hypokalemia E87.6 Candiduria B37.49
== END 2022-12-08 12:57 | disposition home or self-care (01) ==
LOC: ED 12:33 → INTOOBSV 14:19 → SUATTDRO 14:19 → EDINP 14:19 → 2W 22:21

== ENCOUNTER 2023-05-17 07:49 | Inpatient (IN) ==
[2023-05-17] MEDS ORDERED: DINOPROSTONE 10 MG INSERT PV ONE (08:08)
[2023-05-17] MEDS ORDERED: LACTATED RINGER'S 1,000 ML IV PRN (08:08)
--- OUTSIDE RECORDS SUMMARY | 2023-05-17 08:09 | External Medical Summary | Summary of Care ---
Author Name Unknown Organization [facility] Address [address] [place] [address] Phone [phone] Care Team Providers Care Sole Rounding Machine Operator Name Role Phone Unavailable Primary Care Provider Unavailabl e Encounter Details Date Type Department Care Team (Late st Contact Info) Description 05/05/2023 Telephone Gynecology/Obstetrics [facility] [address] [place] [id number] Yenny Farrell CRNP [address] [place] [id number] Allergies Active Allergy Reactions Criticality Noted Date Comments Cephalosporins 03/27/2014 Urticaria Nickel 03/27/2014 rash documented as of this encounter (statuses as of 05/05/2023) Medications Medication Sig Dispensed Refills Start Date End Date Status 28-0.8 MG Oral Tablet Take by mouth. 0 Active Aspirin 81 MG Oral Tablet ChewableIndications:Hi gh-risk in second trimester Take 1 Tablet by mouth in the morning. 90 Tablet 3 11/25/2022 Active Vitamin B-12 1000 MCG Oral Tablet (Cyanocobalamin)Indica tions:Antepartum anemia complicating Take 1 Tablet by mouth in the morning. 30 Tablet 5 03/04/2023 Active Betamethasone Dipropionate 0.05 % External Cream (Diprosone)Indications :Chronic eczematoid otitis externa of both ears Apply topically to affected area 2 times a day. Apply to outer ear canal on left as directed for 7 days, then as needed for itching/dryness. 30 g 0 03/04/2023 Active Ondansetron 4 MG Oral Tablet Disintegrating (Zofran) Place 1 Tablet on tongue every 8 hours as needed for Nausea. dissolve on tongue. 10 Tablet 0 04/05/2023 Active documented as of this encounter (statuses as of 05/05/2023) Active Problems Problem Noted Date Diagnosed Date Iron deficiency anemia 03/09/2023 Supervision of high-risk , unspecified trimester 11/20/2022 Overview: Initiated care with [facility], records scanned. A+, neg Ab screen Rubella immune RPR non-reactive Hep B non-reactive Hep C non-reactive HIV non-reactive Gc/Ct on 10/14/22 neg/neg Pap 07/2022 neg Urine culture neg CORY 05/22/23 based on LMP of 08/15/22 U/A on 10/19/22: 10w0d BP elevated 10/30 at 10w6d: 149/89 Obesity in , antepartum 11/20/2022 Overview: Class 3 RX baby ASA; growth q4 weeks, NST 34 weeks, delivery 39th week Component Latest Ref Rng 11/25/2022 BUN 6 - 20 mg/dL 6 Creatinine 0.5 - 1.0 mg/dL 0.5 Estimated Glomerular Filtration Rate >=60 mL/min >90 Sodium 135 - 146 mmol/L 138 Potassium 3.5 - 5.1 mmol/L 4.1 Chloride 98 - 107 mmol/L 103 CO2 22 - 32 mmol/L 22 Anion Gap 7 - 15 mmol/L 13 Glucose 70 - 120 mg/dL 123 (H) Albumin 3.8 - 5.0 g/dL 3.8 AST 10 - 35 U/L 19 Alkaline Phosphatase 35 - 130 U/L 79 Bilirubin, Total <=1.2 mg/dL 0.2 Calcium 8.4 - 10.2 mg/dL 9.3 Protein 6.0 - 8.3 g/dL 6.2 ALT 10 - 35 U/L 22 Protein/ Creatinine Ratio, Urine <150 mg/g 59 Protein, Random Urine mg/dL 7 Creatinine, Random Urine mg/dL 119 50-g Gestational Glucose, 1 Hour 70 - 129 mg/dL 123 (H) High Estimated Date of Delivery Comme nts Yes 05/22/2023 Based on last me nstrual period of 08/15/2022 (Approximate) documented as of this encounter (statuses as of 05/05/2023) Resolved Problems Problem Noted Date Diagnosed Date Resolved Date Low-lying placenta 01/07/2023 Overview: Noted on anatomy scan. Repeat u/s around 28 wks. documented as of this encounter (statuses as of 05/05/2023) Immunizations Name Administration Dates Next Due TDAP (age 10 and older)(Boostrix) 03/03/2023 documented as of this encounter Social History Tobacco Use Types Packs/Day Years Used Date Smoking Tobacco: Former Cigarettes 0.3 9 Q uit: 09/28/2022 Smokeless Tobacco: Never Alcohol Use Standard Drinks/Week Comments Not Currently 0 (1 standard drink = 0.6 oz pur e alcohol) Hunger Vital Sign Answer Date Recorded Within the past 12 months, y ou worried that your food would run out before you got the money to buy more. Never true 01/07/20 23 Within the past 12 months, t he food you bought just didn't last and you didn't have money to get more. Never true 01/06/2023 Kerrick Depression Scale Answer Date Recorded Kerrick Depression Scale Total 0 04/07/2023 The thought of harming myself has occurred to me . Never 04/07/2023 Estimated Date of Delivery Comme nts Yes 05/22/2023 Based on last me nstrual period of 08/15/2022 (Approximate) Sex and Gender Information Value Date Recorded Sex Assigned at Female 11/02/2022 1:07 PM EDT Gender Identity Female 11/02/2022 1:07 PM EDT Sexual Orientation Straight 11/02/2022 1: 07 PM EDT Job Start Date Occupation Industry Not on file Not on file Not on file documented as of this encounter Miscellaneous Notes * Telephone Encounter - Denisa Qureshi RN - 05/05/2023 3:01 PM EST Pt is aware. * Telephone Encounter - Yenny Farrell CRNP - 05/05/2023 12:[address] Flores in [facility], head measurements are normal. Does not need to see MFM, please let pt know. Thanks! RUFINA Aguero * Telephone Encounter - Yenny Farrell CRNP - 05/05/2023 12:21 PM EST ----- Message from Preethi Escalante DO sent at 05/05/2023 12:14 PM EST ----- Hi! I reviewed the [facility] referral for this patient due to her advanced gestational age. She had lower normal head circumference at today's scan as well as her last scan. 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 There is no change in management based on this, so particularly at 37+ weeks with planned IOL at 39 weeks I think it is very low yield for her to come to [facility] for this indication. Please let me know if we can cancel the referral. Thanks! Preethi documented in this encounter Plan of Treatment Upcoming Encounters Date Type Department Care Team (Late st Contact Info) Description 05/06/2023 9:30 AM EST Pharmacy Pharmacy, [place] [address] [place] [address] Clinic, [facility] [address] [place] [address] 05/12/2023 11:00 AM EST Office Visit Gynecology/Obstetrics [facility] [address] [place] [phone] Yenny Farrell CRNP [address] [place] [phone] Ben, Non Stress Tests Greg [address] [place] [id number] 05/19/2023 11:00 AM EST Office Visit Gynecology/Obstetrics [facility] [address] [place] [phone] Backer, Yenny Narayan, RUFINA [address] [place] [address] Ben, Non Stress Tests Greg [address] [place] [id number] Health Maintenance Due Date Last Done Comments Hepatitis B (1 of 3 - 3-dose series) 1996 Depression Screening 2008 GARDASIL-HPV IMMUNIZATION SERIES (2 - 2-dose series) 05/15/2011 11/12/2010 Hepatitis C Screening 2014 Pap Smear 2017 COVID-19 Vaccine (2022- season) 2022 06/15/2020, 05/25/2020 Influenza Vaccine (FLU shot) (#1) 2022 02/12/2014, 04/03/2013, 04/11/2012, Additional history exists DTaP,Tdap,and Td Vaccines (3 - Td or Tdap) 03/03/2033 03/03/2023, 11/30/2019 Gonorrhea / Chlamydia Screen Discontinued 10/14/2022 HIV Screening Completed 10/14/2022 MENINGOCOCCAL (MENACTRA/MENVEO) Aged Out No longer eligible based on patient's age to complete this topic Pneumococcal Vaccine: Pediatrics (0 to 5 Years) and At-Risk Patients (6 to 64 Years) Aged Out No longer eligible based on patient's age to complete this topic documented as of this encounter Medical Devices Not on filedocumented as of this encounter
--- OUTSIDE RECORDS SUMMARY | 2023-05-17 08:09 | External Medical Summary | Summary of Care ---
Author Name Unknown Organization [facility] Address [address] [place] [address] Phone [phone] Care Team Providers Care Film Writer Name Role Phone Unavailable Primary Care Provider Unavailabl e Reason for Referral * Evaluate & Treat - Unlimited Visits (Within 3 days (urgent)) - Pending Review Specialty Diagnoses / Procedures Referred By Justin estrada Referred To Contact Obstetrics/Gynecology / Maternal Medicine Diagnoses Supervision of high-risk , unspecified trimester Obesity in , antepartum Abnormal US Backer, RUFINA Bowser [address] [place] [address] Referral ID Status Reason Start Date Expiration Date Visits Requested Visits Authorized [id number] Pending Review Specialty Services Required 05/05/[phone] Question Answer Referral Priority Within 3 days (urgent) Has the patient had a viability scan? Yes Date performed 10/16/2022 Location performed Radiology Reason for referral Abnormal ultrasound findings, Obesity Obesity type Class 3 Please provide additional details head circumference 8%ile; 4 weeks ago was 6% but not noted in radiology impression. Class III obesity Where should this appointment be scheduled? [facility] Comments /Para: LMP: Patient's last menstrual period was 08/15/2022 (approximate). Patient is . CORY: 05/22/2023, by Last Menstrual Period Pre-Gravid BMI: 44.36 Reason for Visit * Reason Comments Return Visit Non Stress Test Encounter Details Date Type Department Care Team (Late st Contact Info) Description 05/05/2023 11:00 AM EST Office Visit Gynecology/Obstetric s [facility] Ben [address] [place] [address] Backer, RUFINA Bowser [address] [place] [address] Contreras, Non Stress Tests Greg [address] [place] [address] Supervision of high-risk , unspecified trimester*; Obesity in , antepartum; Abnormal US Allergies Active Allergy Reactions Criticality Noted Date [...] unspecified trimester 11/20/2022 Overview: Initiated care with [facility], records scanned. A+, neg Ab [...] Diagnosed Date Resolved Date Low-lying placenta 01/07/2023 3 Overview: Noted on anatomy scan. Repeat u/s [...] money to get more. Never true 01/06/2023 [place] Depression Scale Answer Date Recorded [place] Depression Scale Total 0 04/07/2023 The thought [...] on file documented as of this encounter Last Filed Vital Signs Vital Sign Reading Time Taken Comments Blood Pressure 122/74 05/05/2023 9:28 AM EST Pulse - - Temperature - - Respiratory Rate - - Oxygen Saturation - - Inhaled Oxygen Concentration - - Weight 116.2 kg (256 lb 3.2 oz) 05/05/2023 9:28 AM EST Height - - Body Mass Index 46.86 04/21/2023 1:44 PM EST documented in this encounter Progress Notes * Yenny Farrell CRNP - 05/05/2023 9:16 AM EST ASSESSMENT assessment with Non-stress Test completed on 05/05/2023 at 37.4 weeks gestation for indicationof obesity heart baseline: 130 bpm Variability: Moderate Decelerations: absent Accelerations: present Contractions: None NST start time: 924 NST stop time: 0950 NST strip reviewed, interpreted, and approved by OB provider, RUFINA Aguero . NST strip stored in clinic storage file Baby is moving well. Some BH ctx but nothing painful or regular. No leaking/bleeding. She has laborinstructions. Discussed neg GBS. Growth scan today, preliminary read shows EFW 36%, SHAKIR 17.3 cm. Final report in process. Per tech worksheet, HC is 8th %ile. Reviewing last U/S shows HC 6th %ile but no mention of this wasin the radiologist's impression. Discussed w/patient that this may be due to baby's low position in the pelvis, but I would advise MFM ultrasound to make sure. She is agreeable, referral placed. Baby is active. No regular ctx/leaking/bleeding. 1 week return with visit/NST RUFINA Aguero documented in this encounter Nursing Notes * Ameena Linares LPN - 05/05/2023 9:28 AM EST PREMA/NST Growth US today- 36% SHAKIR- 17.3cm documented in this encounter Plan of Treatment Upcoming Encounters Date Type Department Care Team (Late st Contact Info) Description 05/05/2023 12:00 PM EST Laboratory Laboratory, [facility] [address] [facility] [place] [id number] ContrerasTom elizabeth [address] [facility] [place] [address] Iron deficiency anemia, unspecified iron deficiency anemia type 05/06/2023 9:30 AM EST Pharmacy Pharmacy, [place] [address] [place] [address] Clinic, Anemia [address] [place] [address] 05/12/2023 11:00 AM EST Office Visit Gynecology/Obstetric s Javier Contreras [address] [place] [address] Yenny Farrell CRNP [address] [place] [address] Ben, Non Stress Tests Greg [address] [place] [address] 05/19/2023 11:00 AM EST Office Visit Gynecology/Obstetric s Javier Contreras [address] [place] [address] Yenny Farrell CRNP [address] [place] [address] Ben, Non Stress Tests Greg [address] [place] [address] Scheduled Orders Name Type Priority Associated Diagnoses Orde r Schedule MFM US MATERNAL 1ST FETUS Medical Imaging Routine Supervision of high-risk , unspecified trimester Obesity in , antepartum Abnormal US Expected: 05/12/2023 (Approximate), Expires: 06/05/2024 Scheduled Referrals Name Type Priority Associated Diagnoses Orde r Schedule MATERNAL MEDICINE REFERRAL OP Referral Within 3 days (urgent) Supervision of high-risk , unspecified trimester Obesity in , antepartum Abnormal US Ordered: 05/05/2023 Health Maintenance Due Date Last Done Comments [...] Not on filedocumented as of this encounter Visit Diagnoses Diagnosis Supervision of high-risk , unspecified trimester- Primary Obesity in , antepartum Obesity complicating , childbirth, or the puerperium, antepartum condition or complication Abnormal US Abnormal findings on screening Iron deficiency anemia, unspecified iron deficiency anemia type documented in this encounter
--- OUTSIDE RECORDS SUMMARY | 2023-05-17 08:09 | External Medical Summary ---
Author Name Unknown Address Unknown Organization [id number]:[place] [facility] [place] [address] [facility] [place] [address] Laboratory Report Ordering Provider Test Date Status ALDAIR THOMPSON 05/05/2023 10:04:15 Final Observation Date Value Abnormality Reference (Units ) Status SYNC LEUKOCYTES IN BLOOD BY AUTOMATED COUNT 05/05/2023 10:04:15 14.21 Above high normal 4.00-10.80 (K/uL) Final Segs 05/05/2023 10:04:15 77.1 Above high normal 40.0-75.0 (%) Final Lymphs % 05/05/2023 10:04:15 16.3 Below low normal 18.0-42.0 (%) Final Monos 05/05/2023 10:04:15 4.2 1.0-11.0 (%) Final Eosinophils 05/05/2023 10:04:15 1.3 0.0-6.0 (%) Final Basos 05/05/2023 10:04:15 0.3 0.0-2.0 (%) Final Immature Granulocyte, Percent 05/05/2023 10:04:15 0.8 0.0-2.0 (%) Final Absolute Segs 05/05/2023 10:04:15 10.95 Above high normal 1.80-7.70 (K/uL) Final Lymphs, absolute 05/05/2023 10:04:15 2.31 1.00-4.80 (K/ul) Final Monos, Abs 05/05/2023 10:04:15 0.60 0.00-1.10 (K/uL) Final Eos, Abs 05/05/2023 10:04:15 0.19 0.00-0.70 (K/uL) Final Basos, Abs 05/05/2023 10:04:15 0.04 0.00-0.20 (K/uL) Final Immature Granulocytes, Number 05/05/2023 10:04:15 0.12 0.00-0.20 (K/uL) Final Performing Location [place] [facility] [place] [facility] [address] [facility] [address]
--- OUTSIDE RECORDS SUMMARY | 2023-05-17 08:09 | External Medical Summary ---
Author Name Unknown Address Unknown Organization [id number]:LABORATORY [facility] [place] - [facility] [address] Laboratory Report Ordering Provider Test Date Status ALDAIR THOMPSON 05/05/2023 10:04:15 Final Observation Date Value Abnormality Reference (Units ) Status Retic, % (auto) 05/05/2023 10:04:15 2.87 Above high normal 0.80-1.90 (%) Final Reticulocytes, Absolute 05/05/2023 10:04:15 104.8 Above high normal 31.3-100.1 (K/uL) Final Reticulocyte fraction, immature 05/05/2023 10:04:15 20.4 2.5-20.6 (%) Final Reticulocyte HGB 05/05/2023 10:04:15 35.5 29.7-37.4 (pg) Final Performing Location LABORATORY [facility] [place] - [address] [place] [address]
--- OUTSIDE RECORDS SUMMARY | 2023-05-17 08:09 | External Medical Summary | Summary of Care ---
Author Name Unknown Organization [facility] Address [address] [place] [address] Phone [phone] Care Team Providers Care End Touching Machine Operator Name Role Phone Unavailable Primary Care Provider Unavailabl e Reason for Visit * Reason Onset Date Comments Anemia Follow-Up 05/12/2023 Encounter Details Date Type Department Care Team (Late st Contact Info) Description 05/06/2023 9:30 AM [facility] Pharmacy Pharmacy, [place] [address] [place] [address] Clinic, Anemia [address] [place] [address] Iron deficiency anemia, unspecified iron deficiency anemia type* Allergies Active Allergy Reactions Criticality Noted Date Comments Cephalosporins 03/27/2014 Urticaria Nickel 03/27/2014 rash documented as of this encounter (statuses as of 05/12/2023) Medications Medication Sig Dispensed Refills Start Date [...] as of this encounter (statuses as of 05/12/2023) Active Problems Problem Noted Date Diagnosed Date Iron deficiency anemia 03/09/2023 Supervision of high-risk , unspecified trimester 11/20/2022 Overview: Initiated care with [facility], records scanned. A+, neg Ab screen Rubella immune RPR non-reactive Hep B non-reactive Hep C non-reactive HIV non-reactive Gc/Ct on 10/14/22 neg/neg Pap 07/2022 neg Urine culture neg CORY 05/22/23 based on LMP of 08/15/22 U/A on 10/19/22: 10w0d BP elevated /7 at 10w6d: 149/89 Obesity in , antepartum [...] as of this encounter (statuses as of 05/12/2023) Resolved Problems Problem Noted Date Diagnosed Date Resolved Date Low-lying placenta 01/07/2023 Overview: Noted on anatomy scan. Repeat u/s around 28 wks. documented as of this encounter (statuses as of 05/12/2023) Immunizations Name Administration Dates Next Due TDAP [...] money to get more. Never true 01/06/2023 [place] Depression Scale Answer Date Recorded [place] Depression Scale Total 0 04/07/2023 The thought [...] on file documented as of this encounter Progress Notes * Denisa Shin RPh - 05/12/2023 3:17 PM EST Patient Phone Numbers Reviewed labs from 05/05/23. Hgb: 11.6 g/dL TSAT: 21 % Ferritin: 262 ng/mL GA: 38w4d CORY: 05/22/23 S/p IV Venofer x 3 03/19/23, 03/29/23, 04/05/23 Hgb and Iron studies within goal. Patient does not qualify for anemia pharmacologic intervention atthis time. Plan: Anemia clinic will sign off. Thank you for allowing us to participate in the care of this patient. Denisa Shin, PharmD [facility] Clinical Pharmacist 05/12/2023 3:18 PM Lab Results Component Value Date/Time HGB - [facility] 11.6 (L) 05/05/2023 10:04 AM HGB - [facility] 10.9 (L) 03/03/2023 09:13 AM No results found for: "HEMOGLOBIN-OUTSIDE LAB" Results for orders placed or performed in visit on 05/05/23 IRON SCREEN, INCLUDING TIBC Result Value Ref Range Iron 99 33 - 151 ug/dL Iron Binding Capacity 470 (H) 250 - 425 ug/dL Transferrin Saturation Percent 21 15 - 55 % Results for orders placed or performed in visit on 03/03/23 IRON SCREEN, INCLUDING TIBC Result Value Ref Range Iron 81 33 - 151 ug/dL Iron Binding Capacity 506 (H) 250 - 425 ug/dL Transferrin Saturation Percent 16 15 - 55 % No results found for: "TRANSFERRIN SAT %-OUTSIDE LAB" Lab Results Component Value Date/Time FERRITIN - [facility] 262 (H) 05/05/2023 10:04 AM FERRITIN - [facility] 76 03/03/2023 09:13 AM No results found for: "FERRITIN-OUTSIDE LAB" documented in this encounter Plan of Treatment Upcoming Encounters Date Type Department Care Team (Late st Contact Info) Description 06/09/2023 10:30 AM EST [facility] [address] [place] [address] Yenny Farrell CRNP [address] [place] [address] 06/29/2023 10:30 AM EST Office Visit Gynecology/Obstetrics Javier Contreras [address] [place] [address] Backer, RUFINA Bowser [address] [place] [address] Health Maintenance Due Date Last Done Comments [...] as of this encounter Visit Diagnoses Diagnosis Iron deficiency anemia, unspecified iron deficiency anemia type- Primary documented in this encounter
--- OUTSIDE RECORDS SUMMARY | 2023-05-17 08:09 | External Medical Summary | Summary of Care ---
Author Name Unknown Organization [facility] Address [address] [place] [address] Phone [phone] Care Team Providers Care Tool And Die Technician Name Role Phone Unavailable Primary Care Provider Unavailabl e Reason for Visit * Reason Comments Non Stress Test Encounter Details Date Type Department Care Team ([facility] Contact Info) Description 05/12/2023 11:00 AM EST Office Visit Gynecology/Obstetric s [facility] Ben [address] [facility] [place] [address] Yenny Farrell CRNP [address] [facility] [place] [address] Ben Non Stress Tests Greg [address] [place] [address] Supervision of high-risk , unspecified trimester*; Obesity in , antepartum Allergies Active Allergy Reactions Criticality Noted Date [...] unspecified trimester 11/20/2022 Overview: Initiated care with [facility], records scanned. A+, neg Ab [...] money to get more. Never true 01/06/2023 [place] Depression Scale Answer Date Recorded [place] Depression Scale Total 0 04/07/2023 The thought [...] Sign Reading Time Taken Comments Blood Pressure 122/72 05/12/2023 11:10 AM EST Pulse - - Temperature - - Respiratory Rate - - Oxygen Saturation - - Inhaled Oxygen Concentration - - Weight 117 kg (258 lb) 05/12/2023 11:10 AM EST Height - - Body Mass Index 47.19 04/21/2023 1:44 PM EST documented in this encounter Progress Notes * Ameena Linares LPN - 05/12/2023 11:10 AM EST 38w4d Denies vaginal bleeding/rom + movement Fritz ramirez * Yenny Farrell CRNP - 05/12/2023 10:55 AM EST 38w4d Induction is scheduled for Wednesday. Baby is active. No regular ctx, leaking/bleeding. Reviewed [facility] and labor signs. Return prn. RUFINA Aguero ASSESSMENT assessment with Non-stress Test completed on 05/12/2023 at 38.4weeks gestation for indication of obesity heart baseline: 130 bpm Variability: Moderate Decelerations: absent Accelerations: present Contractions: None NST start time: 1059 NST stop time: 1121 NST strip reviewed, interpreted, and approved by OB provider, RUFINA Aguero. NST strip stored in clinic storage file documented in this encounter Plan of Treatment Upcoming Encounters Date Type Department Care Team (Late st Contact Info) Description 06/09/2023 10:30 AM EST Office Visit [facility] [address] [place] [address] Yenny Farrell CRNP [address] [place] [address] 06/29/2023 10:30 AM EST Office Visit Gynecology/Obstetrics Javier Contreras [address] [place] [address] Jami, RUFINA Bowser [address] [place] [address] Health Maintenance Due Date Last Done Comments Hepatitis B (1 of 3 - 3-dose series) 1996 Depression Screening 2008 GARDASIL-HPV IMMUNIZATION SERIES (2 - 2-dose series) 05/15/2011 11/12/2010 Hepatitis C Screening 2014 Pap Smear 2017 COVID-19 Vaccine (3 - season) 2022 06/15/2020, 05/25/2020 Influenza Vaccine (FLU [...] or the puerperium, antepartum condition or complication documented in this encounter
--- OUTSIDE RECORDS SUMMARY | 2023-05-17 08:09 | External Medical Summary ---
Author Name Unknown Address Unknown Organization K01:LABORATORY [facility] [place] - [address] [facility] [address] Laboratory Report Ordering Provider Test Date Status JAYALDAIR 05/05/2023 10:04:15 Final Observation Date Value Abnormality Reference (Units ) Status Iron 05/05/2023 10:04:15 99 33-151 (ug/dL) Final Iron-binding capacity 05/05/2023 10:04:15 470 Above high normal 250-425 (ug/dL) Final Transferrin Sat % 05/05/2023 10:04:15 21 15-55 (%) Final Performing Location [facility] [address] [facility] [address]
--- OUTSIDE RECORDS SUMMARY | 2023-05-17 08:09 | External Medical Summary ---
Author Name Unknown Address Unknown Organization K01:LABORATORY [facility] - [address] [place] [address] Laboratory Report Ordering Provider Test Date Status ALDAIR THOMPSON 05/05/2023 10:04:15 Final Observation Date Value Abnormality Reference (Units ) Status Ferritin 05/05/2023 10:04:15 262 Above high normal 13 -150 (ng/mL) Final Performing Location LABORATORY [facility] - [address] [place] [address]
--- OUTSIDE RECORDS SUMMARY | 2023-05-17 08:09 | External Medical Summary ---
Author Name Unknown Address Unknown Organization K01:LABORATORY [facility] [place] - [address] [place] [address] Laboratory Report Ordering Provider Test Date Status ALDAIR THOMPSON 05/05/2023 10:04:15 Final Observation Date Value Abnormality Reference (Units ) Status WBC, Total 05/05/2023 10:04:15 14.21 Above high normal 4.00-10.80 (K/uL) Final RBC 05/05/2023 10:04:15 3.65 3.85-5.15 (M/uL) Final Hemoglobin 05/05/2023 10:04:15 11.6 Below low normal 12.0-15.3 (g/dL) Final HCT 05/05/2023 10:04:15 35.0 Below low normal 36.0-45.2 (%) Final MCV 05/05/2023 10:04:15 95.9 81.5-97.5 (fL) Final MCH 05/05/2023 10:04:15 31.8 27.0-34.0 (pg) Final MCHC 05/05/2023 10:04:15 33.1 32.0-36.0 (g/dL) Final RDW 05/05/2023 10:04:15 13.5 11.5-15.5 (%) Final Platelets 05/05/2023 10:04:15 342 140-400 (K/uL) Final MPV 05/05/2023 10:04:15 10.4 6.6-11.1 (fL) Final Nucleated erythrocytes/100 leukocytes [Ratio] in Blood by Automated count 05/05/2023 10:04:15 0 <=0 (/100 WBCs) Final Performing Location LABORATORY [facility] [place] - [address] [place] [address]
--- OUTSIDE RECORDS SUMMARY | 2023-05-17 08:09 | External Medical Summary ---
Author Name Unknown Address Unknown Organization K01:LABORATORY [facility] - [address] [place] [address] Laboratory Report Ordering Provider Test Date Status ALDAIR THOMPSON 05/05/2023 10:04:15 Final Observation Date Value Abnormality Reference (Units ) Status Folic Acid 05/05/2023 10:04:15 >20.0 >4.5 (ng/ mL) Final Performing Location LABORATORY [facility] - [address] [place] [address]
--- OUTSIDE RECORDS SUMMARY | 2023-05-17 08:09 | External Medical Summary | Summary of Care ---
Author Name Unknown Organization [facility] Address [address] [place] [address] Phone [phone] Care Team Providers Care Configuration Technician Name Role Phone Unavailable Primary Care Provider Unavailabl e Reason for Visit * Reason Comments Outpatient Testing Encounter Details Date Type Department Care Team (Late st Contact Info) Description 05/05/2023 12:00 PM EST Laboratory Laboratory, [facility] [address] [place] [id number] [facility] [address] [place] [address] Iron deficiency anemia, unspecified iron deficiency anemia type Allergies Active Allergy Reactions Criticality Noted Date [...] unspecified trimester 11/20/2022 Overview: Initiated care with [facility], records scanned. A+, neg Ab screen Rubella immune RPR non-reactive Hep B non-reactive Hep C non-reactive HIV non-reactive Gc/Ct on 10/14/22 neg/neg Pap 07/2022 neg Urine culture neg CORY 05/22/23 based on LMP of 08/15/22 U/A on 10/19/22: 10w0d BP elevated 7/7 at 10w6d: 149/89 Obesity in , antepartum [...] money to get more. Never true 01/06/2023 [place] Depression Scale Answer Date Recorded [place] Depression Scale Total 0 04/07/2023 The thought [...] on file documented as of this encounter Plan of Treatment Upcoming Encounters Date Type Department Care Team (Late st Contact Info) Description 05/05/2023 11:00 AM EST Office Visit Gynecology/Obstetric s [facility] Contreras [address] [place] [address] Yenny Farrell CRNP [address] [place] [address] Ben Non Stress Tests Greg [address] [place] [address] Supervision of high-risk , unspecified trimester*; Obesity in , antepartum; Abnormal US 05/06/2023 9:30 AM EST Pharmacy Pharmacy, [place] [address] [place] [address] Clinic, Anemia [address] [place] [address] 05/12/2023 11:00 AM EST Office Visit Gynecology/Obstetric s [facility] [address] [place] [address] Yenny Farrell CRNP [address] [place] [address] Ben Non Stress Tests Greg [address] [place] [address] 05/19/2023 11:00 AM EST Office Visit Gynecology/Obstetric s [facility] [address] [place] [address] Yenny Farrell CRNP [address] [place] [address] Ben Non Stress Tests Greg [address] [place] [address] Pending Results Name Type Priority Associated Diagnoses Date /Time CBC WITH WBC DIFFERENTIAL Lab Routine Iron deficiency anemia, unspecified iron deficiency anemia type 05/05/2023 10:04 AM EST IRON SCREEN, INCLUDING TIBC Lab Routine Iron deficiency anemia, unspecified iron deficiency anemia type 05/05/2023 10:04 AM EST FERRITIN Lab Routine Iron deficiency anemia, unspecified iron deficiency anemia type 05/05/2023 10:04 AM EST RETICULOCYTE PANEL Lab Routine Iron deficiency anemia, unspecified iron deficiency anemia type 05/05/2023 10:04 AM EST FOLIC ACID Lab Routine Iron deficiency anemia, unspecified iron deficiency anemia type 05/05/2023 10:04 AM EST VITAMIN B12 Lab Routine Iron deficiency anemia, unspecified iron deficiency anemia type 05/05/2023 10:04 AM EST CBC Lab Routine Iron deficiency anemia, unspecified iron deficiency anemia type 05/05/2023 10:04 AM EST DIFFERENTIAL, AUTOMATED Lab Routine Iron deficiency anemia, unspecified iron deficiency anemia type 05/05/2023 10:04 AM EST Health Maintenance Due Date Last Done Comments Hepatitis B (1 of 3 - 3-dose series) 1996 Depression Screening 2008 GARDASIL-HPV IMMUNIZATION SERIES (2 - 2-dose series) 05/15/2011 11/12/2010 Hepatitis C Screening 2014 Pap Smear 2017 COVID-19 Vaccine (3 2022-24 season) 2022 06/15/2020, 05/25/2020 Influenza Vaccine (FLU [...]
--- OUTSIDE RECORDS SUMMARY | 2023-05-17 08:09 | External Medical Summary ---
Author Name Unknown Address Unknown Organization K01:LABORATORY [facility] [place] - [address] [place] [address] Laboratory Report Ordering Provider Test Date Status ALDAIR THOMPSON 05/05/2023 10:04:15 Final Observation Date Value Abnormality Reference (Units ) Status Vitamin B12 05/05/2023 10:04:15 403 629-9938 (pg/mL) Final Performing Location LABORATORY [facility] [place] - [address] [place] [address]
--- OUTSIDE RECORDS SUMMARY | 2023-05-17 08:10 | External Medical Summary | Summary of Care ---
Author Name Unknown Organization [facility] Address [address] [place] [address] Phone [phone] Care Team Providers Care Band Tier Name Role Phone Unavailable Primary Care Provider Unavailabl e Reason for Visit * Reason Comments IV Therapy Venofer 06/26 Encounter Details Date Type Department Care Team (Latest Contact Info) Description 04/05/2023 11:45 AM EST Hem/Onc Treatment Hematology/Oncology Treatment, [address] [address] Kiera, Chair 9 Hem Onc [address] [place] [address] Iron deficiency anemia, unspecified iron deficiency anemia type* Allergies Active Allergy Reactions Criticality Noted Date Comments Cephalosporins 03/27/2014 Urticaria Nickel 03/27/2014 rash documented as of this encounter (statuses as of 04/05/2023) Medications Medication Sig Dispensed Refills Start Date End Date Status 28-0.8 MG Oral Tablet Take by mouth. 0 Active Aspirin 81 MG Oral Tablet ChewableIndications:H igh-risk in second trimester Take 1 Tablet by mouth in the morning. 90 Tablet 3 11/25/2022 Active Vitamin B-12 1000 MCG Oral Tablet (Cyanocobalamin)Indic ations:Antepartum anemia complicating Take 1 Tablet by mouth in the morning. 30 Tablet 5 03/04/2023 Active Betamethasone Dipropionate 0.05 % External Cream (Diprosone)Indication s:Chronic eczematoid otitis externa of both ears Apply topically to affected area 2 times a day. Apply to outer ear canal on left as directed for 7 days, then as needed for itching/dryness. 30 g 0 03/04/2023 Active documented as of this encounter (statuses as of 04/05/2023) Active Problems Problem Noted Date Diagnosed Date Iron deficiency anemia 03/09/2023 Low-lying placenta 01/07/2023 Overview: Noted on anatomy scan. Repeat u/s around 28 wks. Supervision of high-risk , unspecified trimester 11/20/2022 Overview: Initiated care with [facility], records scanned. A+, neg Ab screen Rubella [...] as of this encounter (statuses as of 04/05/2023) Immunizations Name Administration Dates Next Due TDAP [...] money to get more. Never true 01/06/2023 [place] Depression Scale Answer Date Recorded [place] Depression Scale Total 0 02/17/2023 The thought of harming myself has occurred to me . Never 02/17/2023 Estimated Date of Delivery Comme nts Yes [...] Sign Reading Time Taken Comments Blood Pressure 135/84 04/05/2023 11:50 AM EST Pulse 105 04/05/2023 11:50 AM EST Temperature 36.7 C (98 F) 04/05/2023 11:50 AM EST Respiratory Rate 18 04/05/2023 11:50 AM EST Oxygen Saturation 97% 04/05/2023 11:50 AM EST Inhaled Oxygen Concentration - - Weight - - Height - - Body Mass Index - - documented in this encounter Nursing Notes * Claudette Bui, RN - 04/05/2023 2:04 PM EST Chair 8 Pt arrives for venofer. She states she's starting to notice she's feeling better, less fatigued. She denies any acute complaints or concerns today. IV started in the left forearm without difficulty, good blood return noted, flushed with NSS, fluids infusing. Safety and Risk for Injury Patient will remain free from injury. Ensure appropriate safety devices are available. Provide and maintain safe environment. Goals: Patient will remain free from injury. Possible barriers to meeting goals: ambulation with IV pole Stability of the patient: Moderately stable - low risk of patient condition declining or worsening Summary regarding today's goals: Met: Pt remained free of injury during treatment Patient tolerated treatment well and was discharged in stable condition. No coverage needed today. documented in this encounter Plan of Treatment Upcoming Encounters Date Type Department Care Team (Late st Contact Info) Description 04/07/2023 1:00 PM EST Imaging Radiology [facility] [address] [place] [address] 04/07/2023 2:00 PM EST Office Visit Gynecology/Obstetrics [facility] [address] [place] [address] Genny Ann CRNP 132 [facility] [address] 04/08/2023 2:00 PM EST [facility] [address], [place] [id number] Clinic, Anemia [address] [place], [place] [id number] Health Maintenance Due Date Last Done Comments Hepatitis B (1 of 3 - 3-dose series) 1996 Depression Screening 2008 GARDASIL-HPV IMMUNIZATION SERIES (2 - 2-dose series) 05/15/2011 11/12/2010 Hepatitis C Screening 2014 Pap Smear 2017 COVID-19 Vaccine (3 - 2022-24 season) 2022 06/15/2020, 05/25/2020 Influenza Vaccine [...] anemia type- Primary documented in this encounter Administered Medications Active Administered Medications - up to 3 most recent administrations Medication Order MAR Action Action Date Dose Rate Site diphenhydrAMINE (Benadryl) inj 50 mg 50 mg, IV Push, ONCE PRN Other, Hypersensitivity Reaction, Starting on Wed04/05/23 at 1205, Until Wed04/06/23 at 1204, For 24 hours EPINEPHrine 1 MG/ML inj 0.3 mg 0.3 mg, Intramuscular, ONCE PRN Other, Hypersensitivity Reaction or Anaphylaxis, Starting on Wed04/05/23 at 1205, Until Wed04/06/23 at 1204, For 24 hours hEParin 100 UNIT/ML Lock Flush inj 500 Units 500 Units (5 mL), IV Lock, PRN Other, IV Flush, Starting on Wed04/05/23 at 1205, Until Wed04/06/23 at 1204, For 24 hours, Do not flush if lock, PICC, or central line not in place; IV infusing or unable to flush. Hydrocortisone Sod Suc (PF) (Solu-Cortef) inj 100 mg 100 mg, IV Push, ONCE PRN Other, Hypersensitivity Reaction, Starting on Wed04/05/23 at 1205, Until Wed04/06/23 at 1204, For 24 hours NSS infusion 500 mL, Intravenous, at 50 mL/hr, CONTINUOUS, Starting on Wed04/05/23 at 1315, Until Wed04/05/23 at 2314 Start Infusion 04/05/2023 12:02 PM EST 500 mL 50 mL/hr oxygen GAS Inhalation, OXYGEN, First dose on Wed04/05/23 at 1600, Until Discontinued, Device/Managed by: Low Flow Device, Goal SPO2 (%): 91-95, Starting Device: Nasal Cannula, Initial Flow Rate (LPM): 2, Lowest Support: Nasal Cannula: Flow 0-6 LPM. Titrate up/down by 1 LPM., Higher Support: Non-Rebreather (NRB) Mask: Minimum of 10 LPM. Titrate to maintain bag inflation., Titration Interval: Q2 minutes and as needed., Notify Provider: For sudden DECREASE in resting SPO2 to less than 85% and when escalating delivery device. sodium chloride 0.9 % flush central line 10 mL 10 mL, IV Push, PRN Other, IV Flush, Starting on Wed04/05/23 at 1205, Until Wed04/06/23 at 1204, For 24 hours, Do not flush if lock, PICC, or central line not in place; IV infusing or unable to flush. Inactive Administered Medications - up to 3 most recent administrations Medication Order MAR Action Action Date Dose Rate Site Iron Sucrose (Venofer) 300 mg in NSS 250 mL ivpb 300 mg, IV Piggyback, ONCE, 1 dose, On Wed04/05/23 at 1345, Administer over 90 Minutes Start Infusion 04/05/2023 12:07 PM EST 300 mg 166.67 mL/hr documented in this encounter
--- OUTSIDE RECORDS SUMMARY | 2023-05-17 08:10 | External Medical Summary | Summary of Care ---
Author Name Unknown Organization [facility] Address [address] [place] [address] Phone [phone] Care Team Providers Care Service Vehicle Operator Name Role Phone Unavailable Primary Care Provider Unavailabl e Reason for Visit * Reason Comments Infusion Venofer 2/3 Encounter Details Date Type Department Care Team (Latest Contact Info) Description 03/29/2023 11:45 AM EST Hem/Onc Treatment Hematology/Oncology Treatment, [place] [address] [place] [address] Kiera, Chair 8 Hem Onc [facility] [address] [place] [address] Iron deficiency anemia, unspecified iron deficiency anemia type* Allergies Active Allergy Reactions Criticality Noted Date Comments Cephalosporins 03/27/2014 Urticaria Nickel 03/27/2014 rash documented as of this encounter (statuses as of 03/29/2023) Medications Medication Sig Dispensed Refills Start Date [...] as of this encounter (statuses as of 03/29/2023) Active Problems Problem Noted Date Diagnosed Date Iron deficiency anemia 03/09/2023 Low-lying placenta 01/07/2023 Overview: Noted on anatomy scan. Repeat u/s around 28 wks. Supervision of high-risk , unspecified trimester 11/20/2022 Overview: Initiated care with [facility], records scanned. A+, neg Ab screen Rubella immune RPR non-reactive Hep B non-reactive Hep C non-reactive HIV non-reactive Gc/Ct on 10/14/22 neg/neg Pap 07/2022 neg Urine culture neg CORY 05/22/23 based on LMP of 08/15/22 U/A on 10/19/22: 10w0d BP elevated / at 10w6d: 149/89 Obesity in , antepartum [...] as of this encounter (statuses as of 03/29/2023) Immunizations Name Administration Dates Next Due TDAP [...] money to get more. Never true 01/06/2023 [place] Depression Scale Answer Date Recorded [place] Depression Scale Total 0 02/17/2023 The thought [...] Sign Reading Time Taken Comments Blood Pressure 137/85 03/29/2023 12:11 PM EST Pulse 90 03/29/2023 12:11 PM EST Temperature 36.4 C (97.6 F) 03/29/2023 12:[address] Respiratory Rate 18 03/29/2023 12:11 PM EST Oxygen Saturation 97% 03/29/2023 12:11 PM EST Inhaled Oxygen Concentration - - Weight - - Height - - Body Mass Index - - documented in this encounter Nursing Notes * Denisa Rosenberg LPN - 03/29/2023 12:12 PM EST 1200: Chair 5. Pt arrived for Venofer 2/3 infusion. PIV in RFA. Pt tolerated well. VSS. No complaints at this time. 1345: Pt tolerated Venofer infusion well. PIV removed intact. Pt to return in one week. Discharged in stable condition. documented in this encounter Plan of Treatment Upcoming Encounters Date Type Department Care Team (Late st Contact Info) Description 04/05/2023 11:45 AM EST Hem/Onc Treatment Hematology/Oncology Treatment, [place] [address] [place] [address] Kiera, Chair 9 Hem Onc [address] [place] [address] 04/07/2023 1:00 PM EST Imaging Radiology [facility] [address] [place] [address] 04/07/2023 2:00 PM EST Office Visit Gynecology/Obstetrics [facility] [address] [place] [address] Genny Ann CRNP 132 [facility] [place] [address] 04/08/2023 2:00 PM EST Pharmacy Pharmacy, [place] [address] [place] [address] Clinic, Anemia [address] [place] [address] Health Maintenance Due Date Last Done Comments Hepatitis B (1 of 3 - 3-dose series) 1996 Depression Screening 2008 GARDASIL-HPV IMMUNIZATION SERIES (2 - 2-dose series) 05/15/2011 11/12/2010 Hepatitis C Screening 2014 Pap Smear 2017 COVID-19 Vaccine ( season) 2022 06/15/2020, 05/25/2020 Influenza Vaccine (FLU [...] ONCE PRN Other, Hypersensitivity Reaction, Starting on Wed03/29/23 at 1204, Until Wed03/30/23 at 1203, For 24 hours EPINEPHrine 1 MG/ML inj 0.3 mg 0.3 mg, Intramuscular, ONCE PRN Other, Hypersensitivity Reaction or Anaphylaxis, Starting on Wed03/29/23 at 1204, Until Wed03/30/23 at 1203, For 24 hours hEParin 100 UNIT/ML Lock Flush inj 500 Units 500 Units (5 mL), IV Lock, PRN Other, IV Flush, Starting on Wed03/29/23 at 1204, Until Wed03/30/23 at 1203, For 24 hours, Do not flush if lock, PICC, or central line not in place; IV infusing or unable to flush. Hydrocortisone Sod Suc (PF) (Solu-Cortef) inj 100 mg 100 mg, IV Push, ONCE PRN Other, Hypersensitivity Reaction, Starting on Wed03/29/23 at 1204, Until Tu03/30/23 at 1203, For 24 hours NSS infusion 500 mL, Intravenous, at 50 mL/hr, CONTINUOUS, Starting on Wed03/29/23 at 1315, Until Wed03/29/23 at 2314 Start Infusion 03/29/2023 12:04 PM EST 500 mL 50 mL/hr oxygen GAS Inhalation, OXYGEN, First dose on Wed03/29/23 at 1600, Until Discontinued, Device/Managed by: Low [...] Push, PRN Other, IV Flush, Starting on Wed03/29/23 at 1204, Until Wed03/30/23 at 1203, For 24 hours, Do not flush if lock, PICC, or central line not in place; IV infusing or unable to flush. Inactive Administered Medications - up to 3 most recent administrations Medication Order MAR Action Action Date Dose Rate Site Iron Sucrose (Venofer) 300 mg in NSS 250 mL ivpb 300 mg, IV Piggyback, ONCE, 1 dose, On Wed03/29/23 at 1345, Administer over 90 Minutes Start Infusion 03/29/2023 12:04 PM EST 300 mg 166.67 mL/hr documented in this encounter
--- OUTSIDE RECORDS SUMMARY | 2023-05-17 08:10 | External Medical Summary | Summary of Care ---
Author Name Unknown Organization [facility] Address [address] [place] [address] Phone [phone] Care Team Providers Care Consulting Actuary Name Role Phone Unavailable Primary Care Provider Unavailabl e Reason for Visit * Reason Comments Return Visit Encounter Details Date Type Department Care Team (Late Contact Info) Description 04/30/2023 1:45 PM EST Office Visit Gynecology/Obstetric s [facility] [address] [facility] [address] Genny Ann CRNP [address] [facility] [address] Ben, Non Stress Tests [facility] [address] [facility] [address] Supervision of high-risk , unspecified trimester*; Obesity in , antepartum Allergies Active Allergy Reactions Criticality Noted Date Comments Cephalosporins 03/27/2014 Urticaria Nickel 03/27/2014 rash documented as of this encounter (statuses as of 04/30/2023) Medications Medication Sig Dispensed Refills Start Date [...] as of this encounter (statuses as of 04/30/2023) Active Problems Problem Noted Date Diagnosed Date Iron deficiency anemia 03/09/2023 Supervision of high-risk , unspecified trimester 11/20/2022 Overview: Initiated care with [facility], records scanned. A+, neg Ab screen [...] as of this encounter (statuses as of 04/30/2023) Resolved Problems Problem Noted Date Diagnosed Date Resolved Date Low-lying placenta 01/07/2023 3 Overview: Noted on anatomy scan. Repeat u/s around 28 wks. documented as of this encounter (statuses as of 04/30/2023) Immunizations Name Administration Dates Next Due TDAP [...] money to get more. Never true 01/06/2023 [place] Depression Scale Answer Date Recorded [place] Depression Scale Total 0 04/07/2023 The thought [...] Sign Reading Time Taken Comments Blood Pressure 120/64 04/30/2023 2:15 PM EST Pulse - - Temperature - - Respiratory Rate - - Oxygen Saturation - - Inhaled Oxygen Concentration - - Weight 115.2 kg (254 lb) 04/30/2023 2:15 PM EST Height - - Body Mass Index 46.46 04/21/2023 1:44 PM EST documented in this encounter Progress Notes * Genny Ann CRNP - 04/30/2023 2:31 PM EST 36w6d No concerns. Baby is active. No contractions, bleeding, or LOF. GBS today. IOL scheduled for 05/17 secondary to class III obesity. Head Batcher Documentation Provider requested instructor business education. Name of instructor business education: Janet. ASSESSMENT assessment with Non-stress Test completed on 04/30/2023 at 36.6weeks gestation for indication of obesity heart baseline: 130 bpm Variability: Moderate Decelerations: absent Accelerations: present Contractions: None NST start time: 1337 NST stop time: 1410 NST strip reviewed, interpreted, and approved by OB provider, RUFINA Singh . NST strip stored in clinic storage file documented in this encounter Plan of Treatment Upcoming Encounters Date Type Department Care Team (Late st Contact Info) Description 05/05/2023 9:15 AM EST Imaging Radiology [facility] [address] [place] [address] 05/05/2023 11:00 AM EST Office Visit Gynecology/Obstetrics [facility] [address] [place] [address] Yenny Farrell CRNP [address] [place] [address] Gabbi Contreras Stress Tests [facility] [address] [place] [address] 05/05/2023 12:00 PM EST Laboratory Laboratory, [facility] [address] [place] [id number] Tom Contreras [address] [place] [address] 05/06/2023 9:30 AM EST Pharmacy Pharmacy, [place] [address] [place] [address] Clinic, [place] [address] [place] [address] 05/12/2023 11:00 AM EST Office Visit Gynecology/Obstetrics [facility] [address] [place] [address] BackerYenny CRNP [address] [place] [address] Ben Non Stress Tests [place] [address] [place] [address] 05/19/2023 11:00 AM EST Office Visit Gynecology/Obstetrics [facility] [address] [place] [address] BackerYenny CRNP [address] [place] [address] Ben Non Stress Tests [place] [address] [place] [address] Pending Results Name Type Priority Associated Diagnoses Date /Time GROUP B STREP CULTURE/PCR Lab Routine Supervision of high-risk , unspecified trimester 04/30/2023 2:56 PM EST Scheduled Orders Name Type Priority Associated Diagnoses Orde r Schedule GROUP B STREP CULTURE/PCR Lab Routine Supervision of high-risk , unspecified trimester Expected: 04/30/2023, Expires: 04/30/2024 Health Maintenance Due Date Last Done Comments Hepatitis B (1 of 3 - 3-dose series) 1996 Depression Screening 2008 GARDASIL-HPV IMMUNIZATION SERIES (2 - 2-dose series) 05/15/2011 11/12/2010 Hepatitis C Screening 2014 Pap Smear 2017 COVID-19 Vaccine (3 - 2022- season) 2022 06/15/2020, 05/25/2020 Influenza Vaccine (FLU [...]
--- OUTSIDE RECORDS SUMMARY | 2023-05-17 08:10 | External Medical Summary | Summary of Care ---
Author Name Unknown Organization [facility] Address [address] [place] [address] Phone [phone] Care Team Providers Care Lacquer Sizer Name Role Phone Unavailable Primary Care Provider Unavailabl e Reason for Visit * Reason Comments Non Stress Test Encounter Details Date Type Department Care Team ([facility] Contact Info) Description 04/14/2023 1:00 PM EST Office Visit Gynecology/Obstetric s [facility] [address] [facility] [place] [address] Yenny Farrell CRNP [address] [facility] [place] [address] Ben Non Stress Tests Greg [address] [place] [address] Supervision of high-risk , unspecified trimester*; Obesity in , antepartum Allergies Active Allergy Reactions Criticality Noted Date Comments Cephalosporins 03/27/2014 Urticaria Nickel 03/27/2014 rash documented as of this encounter (statuses as of 04/14/2023) Medications Medication Sig Dispensed Refills Start Date [...] as of this encounter (statuses as of 04/14/2023) Active Problems Problem Noted Date Diagnosed Date Iron deficiency anemia 03/09/2023 Supervision of high-risk , unspecified trimester 11/20/2022 Overview: Initiated care with [facility], records scanned. A+, neg Ab [...] as of this encounter (statuses as of 04/14/2023) Resolved Problems Problem Noted Date Diagnosed Date Resolved Date Low-lying placenta 01/07/2023 Overview: Noted on anatomy scan. Repeat u/s around 28 wks. documented as of this encounter (statuses as of 04/14/2023) Immunizations Name Administration Dates Next Due TDAP [...] money to get more. Never true 01/06/2023 [place] Depression Scale Answer Date Recorded [place] Depression Scale Total 0 04/07/2023 The thought [...] Sign Reading Time Taken Comments Blood Pressure 118/76 04/14/2023 1:17 PM EST Pulse - - Temperature - - Respiratory Rate - - Oxygen Saturation - - Inhaled Oxygen Concentration - - Weight 115.2 kg (254 lb) 04/14/2023 1:17 PM EST Height - - Body Mass Index 46.46 04/07/2023 1:50 PM EST documented in this encounter Progress Notes * Yenny Farrell CRNP - 04/14/2023 12:56 PM EST ASSESSMENT assessment with Non-stress Test completed on 04/14/2023 at 34w4d gestation for indication of obesity heart baseline: 130 bpm Variability: Moderate Decelerations: absent Accelerations: present Contractions: None NST start time: 1245 NST stop time: 1311 NST strip reviewed, interpreted, and approved by OB provider, RUFINA Aguero . NST strip stored in clinic storage file documented in this encounter Plan of Treatment Upcoming Encounters Date Type Department Care Team (Late st Contact Info) Description 04/21/2023 1:45 PM EST Office Visit Gynecology/Obstetrics [facility] Contreras [address] [place] [address] Genny Ann CRNP [address] [place] [address] Ben Non Stress Tests [place] [address] [place] [address] 04/30/2023 1:45 PM EST Office Visit Gynecology/Obstetrics [facility] Contreras [address] [place] [address] Genny Ann CRNP [address] [place] [address] Contreras, Non Stress Tests Greg [address] [place] [address] 05/05/2023 9:15 AM EST Imaging Radiology [facility] [address] [facility] [address] [place] [address] 05/05/2023 11:00 AM EST Office [facility] [address] [place] [address] Yenny Farrell CRNP [address] [place] [address] Gabbi Contreras Stress Tests [place] [address] [place] [address] 05/05/2023 12:00 PM EST Laboratory Laboratory, [facility] [address] [place] [address] Ben Lab [facility] [address] [place] [address] 05/06/2023 9:30 AM EST Pharmacy Pharmacy, [place] [address] [place] [address] [facility] [address] [place] [address] 05/12/2023 11:00 AM EST Office Visit Gynecology/Obstetrics [facility] [address] [place] [address] Yenny Farrell CRNP [address] [place] [address] Ben Non Stress Tests Greg [address] [place] [address] 05/19/2023 11:00 AM EST Office Visit Gynecology/Obstetrics [facility] [address] [place] [address] Backer, Yenny [place], RUFINA [address] [place] [address] Contreras, Non Stress Tests [place] [address] [place] [address] Health Maintenance Due Date Last Done Comments Hepatitis B (1 of 3 - 3-dose series) 1996 Depression Screening 2008 GARDASIL-HPV IMMUNIZATION SERIES (2 - 2-dose series) 05/15/2011 11/12/2010 Hepatitis C Screening 2014 Pap Smear 2017 COVID-19 Vaccine ( - 2022- season) 2022 06/15/2020, 05/25/2020 Influenza [...]
--- OUTSIDE RECORDS SUMMARY | 2023-05-17 08:10 | External Medical Summary | Summary of Care ---
Author Name Unknown Organization [facility] Address [address] [place] [address] Phone [phone] Care Team Providers Care Magnetic Prospector Name Role Phone Unavailable Primary Care Provider Unavailabl e Reason for Visit * Reason Comments Infusion Venofer 04/28 Encounter Details Date Type Department Care Team (Latest Contact Info) Description 03/22/2023 11:45 AM EST Hem/Onc Treatment Hematology/Oncology Treatment, [place] [address] [place] [address] Kiera, Chair 5 Hem Onc [facility] [address] [place] [address] Iron deficiency anemia, unspecified iron deficiency anemia type* Allergies Active Allergy Reactions Criticality Noted Date Comments Cephalosporins 03/27/2014 Urticaria Nickel 03/27/2014 rash documented as of this encounter (statuses as of 03/22/2023) Medications Medication Sig Dispensed Refills Start Date [...] as of this encounter (statuses as of 03/22/2023) Active Problems Problem Noted Date Diagnosed Date Iron deficiency anemia 03/09/2023 Low-lying placenta 01/07/2023 Overview: Noted on anatomy scan. Repeat u/s around 28 wks. Supervision of high-risk , unspecified trimester 11/20/2022 Overview: Initiated care with [facility], records scanned. A+, neg Ab [...] as of this encounter (statuses as of 03/22/2023) Immunizations Name Administration Dates Next Due TDAP [...] money to get more. Never true 01/06/2023 [place] Depression Scale Answer Date Recorded [place] Depression Scale Total 0 02/17/2023 The thought [...] Sign Reading Time Taken Comments Blood Pressure 131/85 03/22/2023 12:59 PM EST Pulse 87 03/22/2023 12:59 PM EST Temperature 36.4 C (97.6 F) 03/22/2023 12:[address] Respiratory Rate 18 03/22/2023 12:59 PM EST Oxygen Saturation 98% 03/22/2023 12:59 PM EST Inhaled Oxygen Concentration - - Weight - - Height - - Body Mass Index - - documented in this encounter Nursing Notes * Denisa Rosenberg LPN - 03/22/2023 1:00 PM EST 1200: Pt arrived for Venofer 1/3 infusion. PIV in RFA. Pt tolerated well. VSS. No complaints at this time. 1335: Pt tolerated Venofer infusion well. PIV removed intact. Pt to return in one week. Discharged in stable condition. documented in this encounter Plan of Treatment Upcoming Encounters Date Type Department Care Team (Late st Contact Info) Description 03/23/2023 10:00 AM EST Pharmacy Pharmacy, [place] [address] [place] [address] Clinic, [place] [address] [place] [address] 03/29/2023 11:45 AM EST Hem/Onc Treatment Hematology/Oncology Treatment, [address] [place] [address] Kiera, Chair 8 Hem Onc [address] [place] [address] 04/05/2023 11:45 AM EST Hem/Onc Treatment Hematology/Oncology [address], [place] [address] Kiera, Chair 9 [facility] [address] [place] [address] [place] [address] 04/07/2023 1:00 PM EST Imaging Radiology [facility] [address] [place] [address] 04/07/2023 2:00 PM EST Office Visit Gynecology/Obstetrics [facility] [address] [place] [address] Genny Ann CRNP [address] [place] [address] Health Maintenance Due Date Last Done Comments [...] ONCE PRN Other, Hypersensitivity Reaction, Starting on Wed03/22/23 at 1200, Until Wed03/23/23 at 1159, For 24 hours EPINEPHrine 1 MG/ML inj 0.3 mg 0.3 mg, Intramuscular, ONCE PRN Other, Hypersensitivity Reaction or Anaphylaxis, Starting on Wed03/22/23 at 1200, Until Wed03/23/23 at 1159, For 24 hours hEParin 100 UNIT/ML Lock Flush inj 500 Units 500 Units (5 mL), IV Lock, PRN Other, IV Flush, Starting on Wed03/22/23 at 1200, Until Wed03/23/23 at 1159, For 24 hours, Do not flush if lock, PICC, or central line not in place; IV infusing or unable to flush. Hydrocortisone Sod Suc (PF) (Solu-Cortef) inj 100 mg 100 mg, IV Push, ONCE PRN Other, Hypersensitivity Reaction, Starting on Wed03/22/23 at 1200, Until Wed03/23/23 at 1159, For 24 hours NSS infusion 500 mL, Intravenous, at 50 mL/hr, CONTINUOUS, Starting on Wed03/22/23 at 1315, Until Wed03/22/23 at 2314 Start Infusion 03/22/2023 12:00 PM EST 500 mL 50 mL/hr oxygen GAS Inhalation, OXYGEN, First dose on Wed03/22/23 at 1600, Until Discontinued, Device/Managed by: Low [...] Push, PRN Other, IV Flush, Starting on Wed03/22/23 at 1200, Until Wed03/23/23 at 1159, For 24 hours, Do not flush if lock, PICC, or central line not in place; IV infusing or unable to flush. Inactive Administered Medications - up to 3 most recent administrations Medication Order MAR Action Action Date Dose Rate Site Iron Sucrose (Venofer) 300 mg in NSS 250 mL ivpb 300 mg, IV Piggyback, ONCE, 1 dose, On Wed03/22/23 at 1345, Administer over 90 Minutes Start Infusion 03/22/2023 12:01 PM EST 300 mg 166.67 mL/hr documented in this encounter
--- OUTSIDE RECORDS SUMMARY | 2023-05-17 08:10 | External Medical Summary | Summary of Care ---
Author Name Unknown Organization [facility] Address [address] [place] [address] Phone [phone] Care Team Providers Care Toddler Lead Teacher Name Role Phone Unavailable Primary Care Provider Unavailabl e Reason for Visit * Reason Onset Date Comments Order Request 04/14/2023 Growth ultrasoun d Encounter Details Date Type Department Care Team ([facility] st Contact Info) Description 04/14/2023 Telephone [facility] [address] [place] [address] Jennifer Acosta PA-C [address] [facility] [place] [address] Order Request (Growth ultrasound ) Allergies Active Allergy Reactions Criticality Noted Date Comments Cephalosporins 03/27/2014 Urticaria Nickel 03/27/2014 rash documented as of this encounter (statuses as of 04/16/2023) Medications Medication Sig Dispensed Refills Start Date [...] as of this encounter (statuses as of 04/16/2023) Active Problems Problem Noted Date Diagnosed Date Iron deficiency anemia 03/09/2023 Supervision of high-risk , unspecified trimester 11/20/2022 Overview: Initiated care with [facility], records scanned. A+, neg Ab screen [...] as of this encounter (statuses as of 04/16/2023) Resolved Problems Problem Noted Date Diagnosed Date Resolved Date Low-lying placenta 01/07/2023 Overview: Noted on anatomy scan. Repeat u/s around 28 wks. documented as of this encounter (statuses as of 04/16/2023) Immunizations Name Administration Dates Next Due TDAP [...] money to get more. Never true 01/06/2023 [place] Depression Scale Answer Date Recorded [place] Depression Scale Total 0 04/07/2023 The thought [...] encounter Miscellaneous Notes * Telephone Encounter - Genny Ann CRNP - 04/15/2023 2:08 PM EST Signed. * Telephone Encounter - Emilie Cole MED ASSIST - 04/15/2023 11:31 AM EST Pt scheduled 04/21 for next OB with you. Could you please sign ultrasound order? * Telephone Encounter - Jennifer Acosta PA-C - 04/14/2023 9:49 PM EST Can you route to provider who saw her last or who has future appointment with her? No future appointments with me. Last saw patient 03/22/23. * Telephone Encounter - Emilie Cole MED ASSIST - 04/14/2023 1:21 PM EST Growth ultrasound repeat scheduled from 04/07, please place order and send back to me. documented in this encounter Plan of Treatment Upcoming Encounters Date Type Department Care Team (Late st Contact Info) Description 04/21/2023 1:45 PM EST Office Visit Gynecology/Obstetrics [facility] [facility] [address] [place] [address] Genny Ann CRNP [address] [place] [address] [place], Non Stress Tests Greg [address] [place], [place] [address] 04/30/2023 1:45 PM EST Office Visit Gynecology/Obstetrics [facility]es [facility] [address] [place], [place] [address] Genny Ann CRNP [address] [place] [address] Ben Non Stress Tests [facility] [address] [place] [address] 05/05/2023 9:15 AM EST Imaging Radiology [facility] [address] [place] [address] 05/05/2023 11:00 AM EST Office Visit Gynecology/Obstetrics [facility] [address] [place] [address] BackYenny lynne CRNP [address] [place] [address] Ben Non Stress Tests [place] [address] [place] [address] 05/05/2023 12:00 PM EST Laboratory Laboratory, [facility] [address] [place] [address] Ben, Lab [facility] [address] [place] [address] 05/06/2023 9:30 AM EST Pharmacy Pharmacy, [place] [address] [place] [address] Clinic, [place] [address] [place] [address] 05/12/2023 11:00 AM EST Office Visit Gynecology/Obstetrics [facility] [address] [place] [address] Yenny Farrell CRNP [address] [place] [address] Ben Non Stress Tests [facility] [address] [place] [address] 05/19/2023 11:00 AM EST Office Visit Gynecology/Obstetrics Javier [place] [address] [place] [address] TomerYenny CRNP [address] [place] [address] Ben, Non Stress Tests Greg [address] [place] [address] Scheduled Orders Name Type Priority Associated Diagnoses Orde r Schedule US PREG FOLLOW-UP EACH FETUS Medical Imaging Routine Obesity in , antepartum Other specified related conditions, third trimester Expected: 04/29/2023 (Approximate), Expires: 05/16/2024 Health Maintenance Due Date Last Done Comments [...] as of this encounter Visit Diagnoses Diagnosis Obesity in , antepartum- Primary Obesity complicating , childbirth, or the puerperium, antepartum condition or complication Other specified related conditions, third trimester documented in this encounter
--- OUTSIDE RECORDS SUMMARY | 2023-05-17 08:10 | External Medical Summary | Summary of Care ---
Author Name Unknown Organization [facility] Address [address] [place] [address] Phone [phone] Care Team Providers Care Daycare Provider Name Role Phone Unavailable Primary Care Provider Unavailabl e Reason for Referral * Evaluate & Treat - Unlimited Visits (Within 10 days (routine)) - Pending Review Specialty Diagnoses / Procedures Referred By Justin estrada Referred To Contact Pharmacist / Pharmacy Diagnoses YING (iron deficiency anemia) Yenny Farrell CRNP [address] [place] [address] Referral ID Status Reason Start Date Expiration Date Visits Requested Visits Authorized [id number] Pending Review Specialty Services Required 03/04/2023 99 99 Question Answer Referral Priority Within 10 days (routine) Where should this appointment be scheduled? [facility] Department: Specialist Specialty: video control engineer Reason for Referral: Anemia Comments Pharmacist Medication Therapy Management: Iron deficiency anemia Mina Dalal RN Reason for Visit * Reason Onset Date Comments Blood Management Program 03/04/2023 Encounter Details Date Type Department Care Team ([facility] Contact Info) Description 03/04/2023 Telephone Patient Blood Management, [employer] [address] [place] [address] Yenny Farrell CRNP [address] [place] [address] Blood Management Program Allergies Active Allergy Reactions Criticality Noted Date Comments Cephalosporins 03/27/2014 Urticaria Nickel 03/27/2014 rash documented as of this encounter (statuses as of 03/19/2023) Medications Medication Sig Dispensed Refills Start Date [...] as of this encounter (statuses as of 03/19/2023) Active Problems Problem Noted Date Diagnosed Date [...] as of this encounter (statuses as of 03/19/2023) Immunizations Name Administration Dates Next Due TDAP [...] money to get more. Never true 01/06/2023 [place] Depression Scale Answer Date Recorded [place] Depression Scale Total 0 02/17/2023 The thought [...] encounter Miscellaneous Notes * Telephone Encounter - Sandee Herrera RN - 03/19/2023 8:14 AM EST [place] is signed. Scheduling: please call patient to schedule 2 hour appt "venofer 04/28" (Yenny Backer). Thanks! Patient will need venofer once a week x3. * Telephone Encounter - Sandee Herrera RN - 03/16/2023 12:17 PM EST Order received for venofer. [place] plan built and routed for signature. Prior auth not needed for venofer. Can schedule once [place] plan is signed. * Telephone Encounter - Mina Dalal RN - 03/04/2023 2:28 PM EST Recommend IV iron per OB MTM protocol. Patient is agreeable, prefers infusion at [facility]. documented in this encounter Plan of Treatment Upcoming Encounters Date Type Department Care Team (Late st Contact Info) Description 03/22/2023 10:15 AM EST Office Visit Gynecology/Obstetrics [facility] [address] [place] [address] Jennifer Acosta PA-C [address] [place] [address] 03/23/2023 10:00 AM EST Pharmacy Pharmacy, [address] [place] [address] Clinic, Anemia [address] [place] [address] 03/31/2023 11:30 AM EST Office Visit Gynecology/Obstetrics Javier [facility] [address] [facility] [place] [address] Backer, RUFINA Bowser [address] [place] [address] Scheduled Referrals Name Type Priority Associated Diagnoses Orde r Schedule PHARMACIST MEDS THERAPY MGMT REFERRAL OP Referral Within 10 days (routine) YING (iron deficiency anemia) Ordered: 03/04/2023 Health Maintenance Due Date Last Done Comments Hepatitis B (1 of 3 - 3-dose series) 1996 Depression Screening 2008 GARDASIL-HPV IMMUNIZATION SERIES (2 - 2-dose series) 05/15/2011 11/12/2010 Hepatitis C Screening 2014 Pap Smear 2017 COVID-19 Vaccine (2022-24 season) 2022 06/15/2020, 05/25/2020 Influenza Vaccine (FLU [...] as of this encounter Visit Diagnoses Diagnosis YING (iron deficiency anemia)- Primary Iron deficiency anemia, unspecified documented in this encounter
--- OUTSIDE RECORDS SUMMARY | 2023-05-17 08:10 | External Medical Summary | Summary of Care ---
Author Name Unknown Organization [facility] Address [address] [place] [address] Phone [phone] Care Team Providers Care Senior Analysis Specialist Name Role Phone Unavailable Primary Care Provider Unavailabl e Reason for Referral * Evaluate & Treat - Unlimited Visits (Within 10 days (routine)) - Pending Review Specialty Diagnoses / Procedures Referred By Justin estrada Referred To Contact Pharmacist / Pharmacy Diagnoses YING (iron deficiency anemia) Yenny Farrell CRNP [address] [place] [address] Referral ID Status Reason Start Date Expiration Date Visits Requested Visits Authorized [id number] Pending Review Specialty Services Required 03/04/2023 99 99 Question Answer Referral Priority Within 10 days (routine) Where should this appointment be scheduled? [facility] Department: Specialist Specialty: commercial diver Reason for Referral: Anemia Comments Pharmacist Medication Therapy Management: Iron deficiency anemia Mina Dalal RN Reason for Visit * Reason Onset Date Comments Blood Management Program 03/04/2023 Encounter Details Date Type Department Care Team ([facility] Contact Info) Description 03/04/2023 Telephone Patient Blood Management, [place] [address] [place] [address] Yenny Farrell CRNP [address] [place] [address] Blood Management Program Allergies Active Allergy Reactions [...] Overview: Initiated care with [facility], records scanned. A+, neg Ab screen Rubella [...] money to get more. Never true 01/06/2023 [place] Depression Scale Answer Date Recorded [place] Depression Scale Total 0 02/17/2023 The thought [...] encounter Miscellaneous Notes * Telephone Encounter - Juana Viramontes OSA - 03/19/2023 8:29 AM EST Called and spoke to patient and she scheduled venofer for 03/22/23. * Telephone Encounter - Sandee Herrera RN - 03/19/2023 8:14 AM EST [place] is signed. Scheduling: please call patient to schedule 2 hour appt "venofer 04/28" (Yenny Backer). Thanks! Patient will need venofer once a week x3. * Telephone Encounter - Sandee Herrera RN - 03/16/2023 12:17 PM EST Order received for venofer. [place] plan built and routed for signature. Prior auth not needed for venofer. Can schedule once [place] plan is signed. * Telephone Encounter - Mina Dalal RN - 03/04/2023 2:28 PM EST Recommend IV iron per OB MTM protocol. Patient is agreeable, prefers infusion at [facility]. documented in this encounter Plan of Treatment Upcoming Encounters Date Type Department Care Team (Late st Contact Info) Description 03/22/2023 10:15 AM EST Office Visit Gynecology/Obstetrics [facility] [address] [facility] [place] [address] Jennifer Acosta PA-C [address] [place] [address] 03/22/2023 11:45 AM EST Hem/Onc Treatment Hematology/Oncology Treatment, [address], [place] [address] Kiera, Chair 5 Hem Onc [address] [place] [address] 03/23/2023 10:00 AM EST Pharmacy Pharmacy, [place] [address] [place], [place] [id number] Clinic, Anemia [address] [place] [address] 03/29/2023 11:45 AM EST Hem/Onc Treatment Hematology/Oncology Treatment, [address], [place] [address] Kiera, Chair 8 Hem Onc [address] [place], [place] [address] 03/31/2023 11:30 AM EST Office Visit Gynecology/Obstetrics [facility] [address] [facility] [place] [address] Backer, RUFINA Bowser [address] [facility] [place] [address] 04/05/2023 11:45 AM EST Hem/Onc Treatment Hematology/Oncology Treatment, [address], [place] [address] Kiera, Chair 9 Hem Onc [address] [place] [address] Scheduled Referrals Name Type Priority Associated Diagnoses [...]
--- OUTSIDE RECORDS SUMMARY | 2023-05-17 08:10 | External Medical Summary | Summary of Care ---
Author Name Unknown Organization [facility] Address [address] [place] [address] Phone [phone] Care Team Providers Care Literacy Coach Name Role Phone Unavailable Primary Care Provider Unavailabl e Reason for Visit * Reason Onset Date Comments Left Message Anemia Follow-Up 04/08/2023 Encounter Details Date Type Department Care Team (Late st Contact Info) Description 04/08/2023 2:00 PM [facility] Pharmacy Pharmacy, [place] [address] [place] [address] Clinic, Anemia [address] [place] [address] Iron deficiency anemia, unspecified iron deficiency anemia type* Allergies Active Allergy Reactions Criticality Noted Date Comments Cephalosporins 03/27/2014 Urticaria Nickel 03/27/2014 rash documented as of this encounter (statuses as of 04/08/2023) Medications Medication Sig Dispensed Refills Start Date [...] as of this encounter (statuses as of 04/08/2023) Active Problems Problem Noted Date Diagnosed Date [...] as of this encounter (statuses as of 04/08/2023) Immunizations Name Administration Dates Next Due TDAP [...] money to get more. Never true 01/06/2023 [place] Depression Scale Answer Date Recorded [place] Depression Scale Total 0 04/07/2023 The thought [...] as of this encounter Progress Notes * Caity Kim, Michelle - 04/08/2023 11:00 AM EST CBCd, ferritin, iron screen, retic panel, B12, FA ordered for 05/05/23. Caity Kim, PharmD, BCPS Clinical Pharmacist [facility] (P: [phone]) 04/08/2023 11:00 AM * Verna Estrada, bilingual case manager - 04/08/2023 10:14 AM EST Patient Phone Numbers Call to patient to schedule labs. Patient received Venofer 300 mg x 3 on 03/22, 03/29 and 04/05. Labs due on 05/05. GA: [id number] Estimated Date of Delivery: 05/22/23 Pharmacist - please place appropriate lab orders. Thank you, Verna Estrada Armature Repairer 04/08/2023,10:14 AM documented in this encounter Plan of Treatment Upcoming Encounters Date Type Department Care Team (Late st Contact Info) Description 04/14/2023 1:00 PM EST Office Visit Gynecology/Obstetrics [facility] [address] [place] [address] Yenny Farrell CRNP [address] [place] [address] Ben Non Stress Tests Greg [address] [place] [address] 04/21/2023 1:45 PM EST Office Visit Gynecology/Obstetrics [facility] [address] [place] [address] Genny Ann CRNP [address] [place] [address] Ben, Non Stress Tests Greg [address] [place] [address] 04/30/2023 1:45 PM EST Office Visit Gynecology/Obstetrics [facility] [address] [place] [address] Genny Ann CRNP [address] [place] [address] Ben Non Stress Tests Greg [address] [place] [address] 05/05/2023 11:00 AM EST [facility] [address] [place] [address] Yenny Farrell CRNP [address] [place] [address] Ben Non Stress Tests Greg [address] [place] [address] 05/05/2023 12:00 PM EST Laboratory [facility] [address] [place] [address] Ben Lab Greg [address] [place] [address] 05/06/2023 9:30 AM EST Pharmacy Pharmacy, [place] [address] [place], [place] [id number] [facility] [address] [place] [address] 05/12/2023 11:00 AM EST Office Visit Gynecology/Obstetrics [facility] [address] [place] [address] Yenny Farrell CRNP [address] [place] [address] Ben Non Stress Tests Greg [address] [place] [address] 05/19/2023 11:00 AM EST Office Visit Gynecology/Obstetrics Javier [facility] [address] [place] [address] Backer, RUFINA Bowser [address] [place] [address] Ben, Non Stress Tests Greg [address] [place] [address] Scheduled Orders Name Type Priority Associated Diagnoses Orde r Schedule CBC WITH WBC DIFFERENTIAL Lab Routine Iron deficiency anemia, unspecified iron deficiency anemia type Expected: 05/05/2023, Expires: 03/09/2024 IRON SCREEN, INCLUDING TIBC Lab Routine Iron deficiency anemia, unspecified iron deficiency anemia type Expected: 05/05/2023, Expires: 03/09/2024 FERRITIN Lab Routine Iron deficiency anemia, unspecified iron deficiency anemia type Expected: 05/05/2023, Expires: 03/09/2024 RETICULOCYTE PANEL Lab Routine Iron deficiency anemia, unspecified iron deficiency anemia type Expected: 05/05/2023, Expires: 03/09/2024 FOLIC ACID Lab Routine Iron deficiency anemia, unspecified iron deficiency anemia type Expected: 05/05/2023, Expires: 03/09/2024 VITAMIN B12 Lab Routine Iron deficiency anemia, unspecified iron deficiency anemia type Expected: 05/05/2023, Expires: 03/09/2024 Health Maintenance Due Date Last Done Comments [...]
--- OUTSIDE RECORDS SUMMARY | 2023-05-17 08:10 | External Medical Summary | Summary of Care ---
Author Name Unknown Organization [facility] Address [address] [place] [address] Phone [phone] Care Team Providers Care Photo Stylist Name Role Phone Unavailable Primary Care Provider Unavailabl e Reason for Visit * Reason Comments Return Visit Encounter Details Date Type Department Care Team (Late st Contact Info) Description 04/07/2023 2:00 PM EST Office Visit Gynecology/Obstetric s Javier Contreras [address] [facility] [place] [address] Genny Ann CRNP [address] [place] [address] Supervision of high-risk , unspecified trimester*; Obesity in , antepartum; Low-lying placenta Allergies Active Allergy Reactions Criticality Noted Date Comments Cephalosporins 03/27/2014 Urticaria Nickel 03/27/2014 rash documented as of this encounter (statuses as of 04/07/2023) Medications Medication Sig Dispensed Refills Start Date [...] as of this encounter (statuses as of 04/07/2023) Active Problems Problem Noted Date Diagnosed Date Iron deficiency anemia 03/09/2023 Low-lying placenta 01/07/2023 Overview: Noted on anatomy scan. Repeat u/s around 28 wks. Supervision of high-risk , unspecified trimester 11/20/2022 Overview: Initiated care with [facility], records scanned. A+, neg Ab screen [...] as of this encounter (statuses as of 04/07/2023) Immunizations Name Administration Dates Next Due TDAP [...] money to get more. Never true 01/06/2023 [place] Depression Scale Answer Date Recorded [place] Depression Scale Total 0 04/07/2023 The thought [...] Sign Reading Time Taken Comments Blood Pressure 106/72 04/07/2023 1:50 PM EST Pulse - - Temperature - - Respiratory Rate - - Oxygen Saturation - - Inhaled Oxygen Concentration - - Weight 114.8 kg (253 lb) 04/07/2023 1:50 PM EST Height 157.5 cm (5' 2") 04/07/2023 1:50 PM EST Body Mass Index 46.27 04/07/2023 1:50 PM EST documented in this encounter Progress Notes * Genny Ann CRNP - 04/07/2023 2:33 PM EST 33w4d Had GI illness earlier in the week. Baby is active. No contractions, bleeding, or LOF,. Growth u/s today, report pending. To begin weekly NSTs at 34w for obesity. RUFINA Singh * Minda Hernandez LPN - 04/07/2023 1:54 PM EST 33w4d Had GI illness earlier this week. Completed IV iron last Wednesday. Given labor instructions. Had growth scan today, 19th%. SHAKIR 14.3cm. documented in this encounter Plan of Treatment Upcoming Encounters Date Type Department Care Team (Late st Contact Info) Description 04/08/2023 2:00 PM EST [facility] [address] [place] [address] Clinic, Anemia [address] [place] [address] 04/14/2023 1:00 PM EST Office Visit Gynecology/Obstetrics Javier Contreras [address] [place] [address] Yenny Farrell CRNP [address] [place] [address] Gabbi Contreras Stress Tests Greg [address] [place] [address] 04/30/2023 1:45 PM EST Office Visit Gynecology/Obstetrics [facility] [address] [place] [address] Genny Ann CRNP [address] [place] [address] Contreras, Non Stress Tests Greg [address] [place] [address] 05/05/2023 11:00 AM EST Office Visit Gynecology/Obstetrics [facility] Contre[facility] [address] [place] [address] Yenny Farrell CRNP [address] [place] [address] Contreras, Non Stress Tests Greg [address] [place] [address] 05/12/2023 11:00 AM EST Office Visit Gynecology/Obstetrics [facility] [address] [place] [address] Yenny Farrell CRNP [address] [place] [address] Contreras, Non Stress Tests Greg [address] [place] [address] 05/19/2023 11:00 AM EST Office Visit Gynecology/Obstetrics [facility] [address] [place] [address] BackYenny lynne CRNP [address] [place] [address] Contreras, Non Stress Tests Greg [address] [place] [address] Health Maintenance Due Date Last Done Comments [...] or the puerperium, antepartum condition or complication Low-lying placenta Hemorrhage from placenta previa, unspecified as to episode of care documented in this encounter
--- OUTSIDE RECORDS SUMMARY | 2023-05-17 08:10 | External Medical Summary | Summary of Care ---
Author Name Unknown Organization [facility] Address [address] [place] [address] Phone [phone] Care Team Providers Care Display Designer Outside Name Role Phone Unavailable Primary Care Provider Unavailabl e Encounter Details Date Type Department Care Team (Late st Contact Info) Description 03/17/2023 Orders Only Pharmacy, [place] [address] [place], [place] [id number] [facility] [address] [place], [place] [id number] Allergies Active Allergy Reactions Criticality Noted Date Comments Cephalosporins 03/27/2014 Urticaria Nickel 03/27/2014 rash documented as of this encounter (statuses as of 03/17/2023) Medications Medication Sig Dispensed Refills Start Date [...] as of this encounter (statuses as of 03/17/2023) Active Problems Problem Noted Date Diagnosed Date Iron deficiency anemia 03/09/2023 Low-lying placenta 01/07/2023 Overview: Noted on anatomy scan. Repeat u/s around 28 wks. Supervision of high-risk , unspecified trimester 11/20/2022 Overview: Initiated care with [facility], records scanned. A+, neg Ab screen [...] as of this encounter (statuses as of 03/17/2023) Immunizations Name Administration Dates Next Due TDAP [...] money to get more. Never true 01/06/2023 [place] Depression Scale Answer Date Recorded [place] Depression Scale Total 0 02/17/2023 The thought [...] 03/22/2023 10:15 AM EST [facility] [address] [place] [address] Jennifer Acosta PA-C [address] [place] [address] 03/23/2023 10:00 AM EST Pharmacy Pharmacy, [place] [address] [facility] [place] [address] Clinic, Anemia [address] [place] [address] 03/31/2023 11:30 AM EST Office Visit Gynecology/Obstetrics Javier Contreras [address] [place] [address] Backer, YennyRUFINA Javier [address] [place] [address] Health Maintenance Due Date Last Done Comments [...]
--- OUTSIDE RECORDS SUMMARY | 2023-05-17 08:10 | External Medical Summary | Summary of Care ---
Author Name Unknown Organization [facility] Address [address] [place] [address] Phone [phone] Care Team Providers Care Incident Handler Name Role Phone Unavailable Primary Care Provider Unavailabl e Encounter Details Date Type Department Care Team (Late st Contact Info) Description 03/16/2023 Orders Only Hematology/Oncology Treatment, [place] [address] [place] [address] BackerYenny CRNP [address] [place] [address] Allergies Active Allergy Reactions Criticality Noted Date Comments Cephalosporins 03/27/2014 Urticaria Nickel 03/27/2014 rash documented as of this encounter (statuses as of 03/16/2023) Medications Medication Sig Dispensed Refills Start Date [...] as of this encounter (statuses as of 03/16/2023) Active Problems Problem Noted Date Diagnosed Date Iron deficiency anemia 03/09/2023 Low-lying placenta 01/07/2023 Overview: Noted on anatomy scan. Repeat u/s around 28 wks. Supervision of high-risk , unspecified trimester 11/20/2022 Overview: Initiated care with [facility], records scanned. A+, neg Ab [...] as of this encounter (statuses as of 03/16/2023) Immunizations Name Administration Dates Next Due TDAP [...] money to get more. Never true 01/06/2023 [place] Depression Scale Answer Date Recorded [place] Depression Scale Total 0 02/17/2023 The thought [...] Care Team (Late st Contact Info) Description 03/16/2023 4:00 PM EST Pharmacy Pharmacy, [place] [address] [place] [address] Clinic, Anemia [address] [place] [address] Iron deficiency anemia, unspecified iron deficiency anemia type* 03/22/2023 10:15 AM EST Office Visit Gynecology/Obstetric [address] [place] [address] Jennifer Acosta PA-C [address] [place] [address] 03/23/2023 10:00 AM EST Pharmacy Pharmacy, [place] [address] [place] [address] Clinic, [facility] [address] [place], [place] [phone] 03/31/2023 11:30 AM EST Office Visit Gynecology/Obstetric s Javier Contreras [address] [place] [address] BackerYenny CRNP [address] [place] [address] Health Maintenance Due Date Last Done Comments [...]
--- OUTSIDE RECORDS SUMMARY | 2023-05-17 08:10 | External Medical Summary | Summary of Care ---
Author Name Unknown Organization [facility] Address [address] [place] [address] Phone [phone] Care Team Providers Care Health Editor Name Role Phone Unavailable Primary Care Provider Unavailabl e Reason for Visit * Reason Comments Non Stress Test Return Visit Encounter Details Date Type Department Care Team (Late st Contact Info) Description 04/21/2023 1:45 PM EST Office Visit Gynecology/Obstetric s [facility] [address] [facility] [address] Genny Ann CRNP [address] [place] [address] Ben, Non Stress Tests Greg [address] [place] [address] Supervision of high-risk , unspecified trimester*; Obesity in , antepartum Allergies Active Allergy Reactions Criticality Noted Date Comments Cephalosporins 03/27/2014 Urticaria Nickel 03/27/2014 rash documented as of this encounter (statuses as of 04/21/2023) Medications Medication Sig Dispensed Refills Start Date [...] as of this encounter (statuses as of 04/21/2023) Active Problems Problem Noted Date Diagnosed Date Iron deficiency anemia 03/09/2023 Supervision of high-risk , unspecified trimester 11/20/2022 Overview: Initiated care with [facility], records scanned. A+, neg Ab screen Rubella [...] as of this encounter (statuses as of 04/21/2023) Resolved Problems Problem Noted Date Diagnosed Date Resolved Date Low-lying placenta 01/07/2023 Overview: Noted on anatomy scan. Repeat u/s around 28 wks. documented as of this encounter (statuses as of 04/21/2023) Immunizations Name Administration Dates Next Due TDAP [...] money to get more. Never true 01/06/2023 [place] Depression Scale Answer Date Recorded [place] Depression Scale Total 0 04/07/2023 The thought [...] Reading Time Taken Comments Blood Pressure 122/74 04/21/2023 1:44 PM EST Pulse - - Temperature - - Respiratory Rate - - Oxygen Saturation - - Inhaled Oxygen Concentration - - Weight 114.3 kg (252 lb) 04/21/2023 1:44 PM EST Height 157.5 cm (5' 2") 04/21/2023 1:44 PM EST Body Mass Index 46.09 04/21/2023 1:44 PM EST documented in this encounter Progress Notes * Genny Ann CRNP - 04/21/2023 2:02 PM EST 35w4d No concerns. Baby is active, no contractions. ASSESSMENT assessment with Non-stress Test completed on 04/21/2023 at 35.4weeks gestation for indicationof obesity heart baseline: 130 bpm Variability: Moderate Decelerations: absent Accelerations: present Contractions: None NST start time: 1337 NST stop time: 1411 NST strip reviewed, interpreted, and approved by OB providerGenny CRNP . NST strip stored in clinic storage file * Minda Hernandez LPN - 04/21/2023 1:44 PM EST 35w4d NST, PREMA documented in this encounter Plan of Treatment Upcoming Encounters Date Type Department Care Team (Late st Contact Info) Description 04/30/2023 1:45 PM EST Office Visit Gynecology/Obstetrics Javier Contreras [address] [place] [address] Genny Ann CRNP [address] [place] [address] Gabbi Contreras Stress Tests Greg [address] [place] [address] 05/05/2023 9:15 AM EST Imaging Radiology [facility] [address] [place] [address] 05/05/2023 11:00 AM EST Office Visit Gynecology/[place]st[place]s [place] [address] [address] [place] [address] Yenny Farrell CRNP [address] [place] [address] Ben Non Stress Tests Greg [address] [place] [address] 05/05/2023 12:00 PM EST Laboratory Laboratory, [facility] [address] [place] [phone] Ben Lab [facility] [address] [place] [address] 05/06/2023 9:30 AM EST Pharmacy Pharmacy, [place] [address] [place] [address] Clinic, [facility] [address] [place] [address] 05/12/2023 11:00 AM EST Office Visit Gynecology/Obstetrics [facility] [address] [place] [address] Yenny Farrell CRNP [address] [place] [address] Ben Non Stress Tests Greg [address] [place] [address] 05/19/2023 11:00 AM EST Office [facility] [address] [place] [address] Yenny Farrell CRNP [address] [place] [address] Gabbi Contreras Stress Tests Greg [address] [place] [address] Health Maintenance Due Date Last Done Comments [...]
--- OUTSIDE RECORDS SUMMARY | 2023-05-17 08:10 | External Medical Summary | Summary of Care ---
Author Name Unknown Organization [facility] Address [address] [place] [address] Phone [phone] Care Team Providers Care Pit Operator Name Role Phone Unavailable Primary Care Provider Unavailabl e Reason for Visit * Reason Onset Date Comments Anemia Follow-Up 03/23/2023 Encounter Details Date Type Department Care Team (Late st Contact Info) Description 03/23/2023 10:00 AM [facility] Pharmacy Pharmacy, [place] [address] [place] [address] Clinic, Anemia [address] [place] [address] Iron deficiency anemia, unspecified iron deficiency anemia type* Allergies Active Allergy Reactions Criticality Noted Date Comments Cephalosporins 03/27/2014 Urticaria Nickel 03/27/2014 rash documented as of this encounter (statuses as of 03/23/2023) Medications Medication Sig Dispensed Refills Start Date [...] as of this encounter (statuses as of 03/23/2023) Active Problems Problem Noted Date Diagnosed Date Iron deficiency anemia 03/09/2023 Low-lying placenta 01/07/2023 Overview: Noted on anatomy scan. Repeat u/s around 28 wks. Supervision of high-risk , unspecified trimester 11/20/2022 Overview: Initiated care with [facility], records scanned. A+, neg Ab [...] as of this encounter (statuses as of 03/23/2023) Immunizations Name Administration Dates Next Due TDAP [...] money to buy more. Never true 01/07/20 Within the past 12 months, t he food you bought just didn't last and you didn't have money to get more. Never true 01/06/2023 [place] Depression Scale Answer Date Recorded [place] Depression Scale Total 0 02/17/2023 The thought [...] of this encounter Progress Notes * Caity Kim RP - 03/23/2023 11:35 AM EST Patient received first dose of Venofer 300 mg x 3 repletion series on 03/22/23 and appeared to havetolerated it without issue. Next scheduled: 03/29/23 Scheduled to be completed: 04/05/23 GA: 31w3d Estimated Date of Delivery: 05/22/23 Follow-up after completion of series to schedule repeat labs if appropriate prior to delivery. Anemia Clinic will continue to follow. Thank you for allowing us to participate in the care of thispatient. Caity Kim PharmD, [facility] Clinical Pharmacist 03/23/2023 11:35 AM documented in this encounter Plan of Treatment Upcoming Encounters Date Type Department Care Team (Late st Contact Info) Description 03/29/2023 11:45 AM EST Hem/Onc Treatment Hematology/Oncology Treatment, [address] [place] [address] Kiera, Chair 8 Hem Onc [facility] [address] [place] [address] [place] [address] 04/05/2023 11:45 AM EST Hem/Onc Treatment Hematology/Oncology [address], [address] [address] Kiera, Chair 9 Hem Onc [facility] [address] [place] [address] [place] [address] 04/07/2023 1:00 PM EST Imaging Radiology [facility] [address] [place] [address] 04/07/2023 2:00 PM EST Office Visit Gynecology/Obstetrics [facility] 132 [facility] [place] [address] Genny Ann CRNP 132 [place] [address] 04/08/2023 2:00 PM EST Pharmacy Pharmacy, [place] [address] [place], [place] [phone] Clinic, Anemia [address] [place], [place] [address] Health Maintenance Due Date Last Done Comments [...]
--- OUTSIDE RECORDS SUMMARY | 2023-05-17 08:10 | External Medical Summary | Summary of Care ---
Author Name Unknown Organization [facility] Address [address] [place] [address] Phone [phone] Care Team Providers Care Vocational Aide Name Role Phone Unavailable Primary Care Provider Unavailabl e Reason for Visit * Reason Comments Return Visit Encounter Details Date Type Department Care Team (Late st Contact Info) Description 03/22/2023 10:15 AM EST Office Visit Gynecology/Obstetric s Javier Contreras [address] [place] [address] Jennifer Acosta PA-C [address] [facility] [place] [address] Supervision of high-risk , unspecified trimester*; Obesity in , antepartum; Low-lying placenta; Encounter for supervision of other normal in third trimester Allergies Active Allergy Reactions Criticality Noted Date [...] money to get more. Never true 01/06/2023 [place] Depression Scale Answer Date Recorded [place] Depression Scale Total 0 02/17/2023 The thought [...] Sign Reading Time Taken Comments Blood Pressure 120/72 03/22/2023 10:08 AM EST Pulse - - Temperature - - Respiratory Rate - - Oxygen Saturation - - Inhaled Oxygen Concentration - - Weight 114.8 kg (253 lb) 03/22/2023 10:08 AM EST Height 157.5 cm (5' 2") 03/22/2023 10:08 AM EST Body Mass Index 46.27 03/22/2023 10:08 AM EST documented in this encounter Progress Notes * Jennifer Acosta PA-C - 03/22/2023 10:23 AM EST 31w2d Without complaints. Passed 3 hour gtt. Completing first iron infusion today. Last growth 03/03/2023: 1318 +/- 192 g which is at the 53rd percentile. Growth u/s with next visit. Continue q4 weeks until delivery. Reviewed NST weekly starting at 34 weeks secondary to class 3. RTC in 2 weeks Jennifer Acosta PA-C documented in this encounter Nursing Notes * Minda Hernandez LPN - 03/22/2023 10:10 AM EST 31w2d Denies concerns. documented in this encounter Plan of Treatment Upcoming Encounters Date Type Department Care Team (Late st Contact Info) Description 03/22/2023 11:45 AM EST Hem/Onc Treatment Hematology/Oncology Treatment, [address] [address] Kiera, Chair 5 Hem Onc [address] [place] [address] 03/23/2023 10:00 AM EST Pharmacy Pharmacy, [place] [address] [place] [address] Clinic, Anemia [address] [place] [address] 03/29/2023 11:45 AM EST Hem/Onc Treatment Hematology/Oncology Treatment, [address], [place] [address] Kiera, Chair 8 Hem Onc [address] [address] 04/05/2023 11:45 AM EST Hem/Onc Treatment Hematology/Oncology Treatment, [place] [address] [place] [address] Kiera, Chair 9 Hem Onc [place] [address] [place] [address] 04/07/2023 1:00 PM EST Imaging Radiology [facility] [address] [place] [address] 04/07/2023 2:00 PM EST Office Visit Gynecology/Obstetrics [facility] [address] [place] [address] Genny Ann CRNP [address] [place] [address] Scheduled Orders Name Type Priority Associated Diagnoses Orde r Schedule US PREG FOLLOW-UP EACH FETUS Medical Imaging Routine Supervision of high-risk , unspecified trimester Obesity in , antepartum Encounter for supervision of other normal in third trimester Expected: 04/05/2023, Expires: 04/21/2024 Health Maintenance Due Date Last Done Comments [...] previa, unspecified as to episode of care Encounter for supervision of other normal in third trimester documented in this encounter
--- OUTSIDE RECORDS SUMMARY | 2023-05-17 08:10 | External Medical Summary | Summary of Care ---
Author Name Unknown Organization [facility] Address [address] [place] [address] Phone [phone] Care Team Providers Care Er Rn Name Role Phone Unavailable Primary Care Provider Unavailabl e Reason for Visit * Reason Comments Return Visit Encounter Details Date Type Department Care Team (Late Contact Info) Description 04/30/2023 1:45 PM EST Office Visit Gynecology/Obstetric s [facility] [address] [facility] [address] Genny Ann CRNP [address] [facility] [place] [address] Ben, Non Stress Tests Greg [address] [facility] [address] Supervision of high-risk , unspecified trimester*; Obesity [...] money to get more. Never true 01/06/2023 [place] Depression Scale Answer Date Recorded [place] Depression Scale Total 0 04/07/2023 The thought [...] for 05/17 secondary to class III obesity. Digital Librarian Documentation Provider requested bridge maintenance worker. Name of bridge maintenance worker: Janet. ASSESSMENT assessment with Non-stress Test completed [...] Description 05/05/2023 9:15 AM EST Imaging Radiology [facility] 2nd [facility] [address] [place] [address] 05/05/2023 11:00 AM EST Office Visit Gynecology/Obstetrics [facility] [address] [place] [address] Yenny Farrell CRNP [address] [place] [address] Gabbi Contreras Stress Tests [facility] [address] [place] [address] 05/05/2023 12:00 PM EST Laboratory Laboratory, [facility] [address] [place] [id number] Tom Contreras [address] [place] [address] 05/06/2023 9:30 AM EST Pharmacy Pharmacy, [place] [address] [place] [address] Clinic, [place] [address] [place] [address] 05/12/2023 11:00 AM EST Office Visit Gynecology/Obstetrics [facility] [address] [place] [address] BackYenny lynne CRNP [address] [place] [address] Gabbi Contreras Stress Tests [facility] [address] [place] [address] 05/19/2023 11:00 AM EST Office Visit Gynecology/Obstetrics [facility] [address] [place] [address] BackerYenny CRNP [address] [place] [address] Ben Non Stress Tests [facility] [address] [place] [address] Scheduled Orders Name Type Priority Associated Diagnoses [...]
--- OUTSIDE RECORDS SUMMARY | 2023-05-17 08:10 | External Medical Summary | Summary of Care ---
Author Name Unknown Organization [facility] Address [address] [place] [address] Phone [phone] Care Team Providers Care Product Development Chemist Name Role Phone Unavailable Primary Care Provider Unavailabl e Encounter Details Date Type Department Care Team (Late st Contact Info) Description 04/05/2023 Telephone Gynecology/Obstetrics [facility] [address] [facility] [place] [address] Jennifer Acosta PA-C [address] [place] [address] Allergies Active Allergy Reactions Criticality Noted Date [...] trimester 11/20/2022 Overview: Initiated care with [facility], records scanned. A+, neg Ab screen Rubella immune RPR non-reactive Hep B non-reactive Hep C non-reactive HIV non-reactive Gc/Ct on 10/14/22 neg/neg Pap 07/2022 neg Urine culture neg CORY 05/22/23 based on LMP of 08/15/22 U/A on 10/19/22: 10w0d BP elevated 7 at 10w6d: 149/89 Obesity in , antepartum [...] money to get more. Never true 01/06/2023 [place] Depression Scale Answer Date Recorded [place] Depression Scale Total 0 02/17/2023 The thought [...] encounter Miscellaneous Notes * Telephone Encounter - Shoshana Rebolledo RN - 04/05/2023 12:54 PM EST Patient called and made aware of below. Patient verbalized understanding to all. * Telephone Encounter - Jennifer Acosta PA-C - 04/05/2023 12:50 PM EST I sent her in a few doses of Zofran, she can take every 8 hours. Should try to limit. Would recommend BRAT diet (bananas, rice, applesauce, and toast). If unable to keep any fluids down, needs ED visit. If symptoms not improving in 24- 48 hours needs PCP follow up. * Telephone Encounter - Shoshana Rebolledo RN - 04/05/2023 11:39 AM EST Patient calling in. States that she has a stomach bug, since yesterday having nausea, vomiting, anddiarrhea. Patient denies any concerns. No bleeding, leaking, DFM. Is keeping some fluids down. Last seen by Jennifer, Patient has upcoming visit on 04/07 with Genny. Patient asking if provider willing to send her medication into pharmacy, please advise if wiling to send nausea medication. Thank you. documented in this encounter Plan of Treatment Upcoming Encounters Date Type Department Care Team (Late st Contact Info) Description 04/07/2023 1:00 PM EST Imaging Radiology [facility] [address] [place] [address] 04/07/2023 2:00 PM EST Office Visit Gynecology/Obstetrics [facility] [address] [place] [address] Genny Ann CRNP [address] [facility] [address] 04/08/2023 2:00 PM EST Pharmacy Pharmacy, [place] [address] [place] [address] Clinic, [facility] [address] [place] [address] Health Maintenance Due Date Last Done Comments [...]
--- OUTSIDE RECORDS SUMMARY | 2023-05-17 08:10 | External Medical Summary ---
Author Name Unknown Address Unknown Organization [id number]:LABORATORY [facility] - [address] [facility] [address] Laboratory Report Ordering Provider Test Date Status LAYA MELTON 04/30/2023 14:56:35 Final Observation Date Value Abnormality Reference (Units ) Status Streptococcus agalactiae DNA [Presence] in Specimen by ALVIN with probe detection 04/30/2023 14:56:35 Negative Negative Final No Group B Streptococcus det ected by culture-enhanced PCR (amplified probe).
The collection of vaginal/rectal swab specimen combinations (FDA approved specimen type) is optimal for the detection of Group B Streptococcus. Single source collection (vaginal only or rectal only) or alternate specimen sources may lead to false negative results. Performing Location LABORATORY [facility] - [address] [address]
--- OUTSIDE RECORDS SUMMARY | 2023-05-17 08:11 | External Medical Summary | Summary of Care ---
Author Name Unknown Organization [facility] Address [address] [place] [address] Phone [phone] Care Team Providers Care Hydroelectric Station Operator Chief Name Role Phone Unavailable Primary Care Provider Unavailabl e Reason for Visit * Reason Onset Date Comments Anemia Follow-Up 03/09/2023 * Evaluate & Treat - Unlimited Visits (Within 10 days (routine)) - Pending Review Specialty Diagnoses / Procedures Referred By Justin estrada Referred To Contact Pharmacist / Pharmacy Diagnoses YING (iron deficiency anemia) Yenny Farrell CRNP [address] [place] [address] Referral ID Status Reason Start Date Expiration Date Visits Requested Visits Authorized [id number] Pending Review Specialty Services Required 03/04/2023 99 99 Encounter Details Date Type Department Care Team ([facility] Contact Info) Description 03/09/2023 4:00 PM [facility] Pharmacy Pharmacy, [place] [address] [place], [place] [id number] Clinic, Anemia [address] [place] [address] Iron deficiency anemia, unspecified iron deficiency anemia type* Allergies Active Allergy Reactions Criticality Noted Date Comments Cephalosporins 03/27/2014 Urticaria Nickel 03/27/2014 rash documented as of this encounter (statuses as of 03/09/2023) Medications Medication Sig Dispensed Refills Start Date [...] as of this encounter (statuses as of 03/09/2023) Active Problems Problem Noted Date Diagnosed Date Iron deficiency anemia 03/09/2023 Low-lying placenta 01/07/2023 Overview: Noted on anatomy scan. Repeat u/s around 28 wks. Supervision of high-risk , unspecified trimester 11/20/2022 Overview: Initiated care with [facility], records scanned. A+, neg Ab screen [...] as of this encounter (statuses as of 03/09/2023) Immunizations Name Administration Dates Next Due TDAP [...] money to get more. Never true 01/06/2023 [place] Depression Scale Answer Date Recorded [place] Depression Scale Total 0 02/17/2023 The thought [...] as of this encounter Progress Notes * Dinora Kc [facility] - 03/09/2023 9:29 AM EST Patient referred by RUFINA Gallegos for evaluation of anemia by the Anemia Clinic. Called patient to introduce role/clinic and to review labs from 03/03. No answer, no voicemail. Hgb: 10.9 g/dL TSAT: 16 % Ferritin: 76 ng/mL B12: 184 pg/mL FA: >20.0 ng/mL GA: 29w3d Estimated Date of Delivery: 05/22/23 Hgb is below target range for the third trimester. Iron studies within target range. B12 level below target range. FA level within target range. Per chart review, ptient is taking B12 1000mcg daily and appears to be tolerating it well. Patient qualifies for IV iron repletion. Tentative Plan: Venofer 300 mg IV weekly x 3 doses at [facility]. Orders need to be placed and routed to appropriate parties if patient agreeable to intervention. Follow-up labs (CBCD, ferritin, iron screen, retic panel, B12, and FA) to be scheduled 4-6 weeks after iron repletion completed if appropriate prior to delivery. Anemia Clinic will continue to follow. Thank you for allowing us to participate in the care of thispatient. Thanks, Dinora Kc [facility] Clinical Pharmacist 03/09/2023 9:29 AM documented in this encounter Plan of Treatment Upcoming Encounters Date Type Department Care Team (Late st Contact Info) Description 03/16/2023 4:00 PM EST Pharmacy Pharmacy, [place] [address] [place] [address] Clinic, Anemia [address] [facility] [place] [address] 03/22/2023 10:15 AM EST Office Visit Gynecology/Obstetrics [facility] [address] [place] [address] Jennifer Acosta PA-C [address] [place] [address] 03/31/2023 11:30 AM EST Office Visit Gynecology/Obstetrics Javier Contreras [address] [place] [address] Yenny Farrell CRNP [address] [place] [address] Scheduled Referrals Name Type Priority Associated Diagnoses Orde r Schedule PHARMACIST MEDS THERAPY MGMT REFERRAL OP Referral Within 10 days (routine) YING (iron deficiency anemia) Ordered: 03/04/2023 Health Maintenance Due Date Last Done Comments Hepatitis B (1 of 3 - 3-dose series) 1996 GARDASIL-HPV IMMUNIZATION SERIES (1 - 2-dose series) 12/11/2007 Depression Screening 2008 Hepatitis C Screening 2014 Pap Smear 2017 [...]
--- OUTSIDE RECORDS SUMMARY | 2023-05-17 08:11 | External Medical Summary | Summary of Care ---
Author Name Unknown Organization [facility] Address [address] [place] [address] Phone [phone] Care Team Providers Care Buggyman Name Role Phone Unavailable Primary Care Provider Unavailabl e Reason for Visit * Reason Comments Return Visit Encounter Details Date Type Department Care Team ([facility] Contact Info) Description 03/03/2023 9:30 AM EST Office Visit Gynecology/Obstetric s Javier Contreras [address] [facility] [place] [address] Genny Ann CRNP [address] [facility] [address] Supervision of high-risk , unspecified trimester*; Obesity in , antepartum; Low-lying placenta; Need for prophylactic vaccination with combined ofhzrtevgp-dwlrrwu-yu rtussis (DTP) vaccine Allergies Active Allergy Reactions Criticality Noted Date Comments Cephalosporins 03/27/2014 Urticaria Nickel 03/27/2014 rash documented as of this encounter (statuses as of 03/03/2023) Medications Medication Sig Dispensed Refills Start Date End Date Status 28-0.8 MG Oral Tablet Take by mouth. 0 Active Aspirin 81 MG Oral Tablet ChewableIndications:H igh-risk in second trimester Take 1 Tablet by mouth in the morning. 90 Tablet 3 11/25/2022 Active documented as of this encounter (statuses as of 03/03/2023) Active Problems Problem Noted Date Diagnosed Date Low-lying placenta 01/07/2023 Overview: Noted on anatomy scan. Repeat u/s around 28 wks. Supervision of high-risk , unspecified trimester 11/20/2022 Overview: Initiated care with [facility], records scanned. A+, neg Ab screen [...] as of this encounter (statuses as of 03/03/2023) Immunizations Name Administration Dates Next Due TDAP [...] money to get more. Never true 01/06/2023 [place] Depression Scale Answer Date Recorded [place] Depression Scale Total 0 02/17/2023 The thought [...] Sign Reading Time Taken Comments Blood Pressure 112/70 03/03/2023 8:56 AM EST Pulse - - Temperature - - Respiratory Rate - - Oxygen Saturation - - Inhaled Oxygen Concentration - - Weight 113.2 kg (249 lb 9.6 oz) 03/03/2023 8:56 AM EST Height - - Body Mass Index 45.65 01/20/2023 9:58 AM EDT documented in this encounter Progress Notes * Genny Ann CRNP - 03/03/2023 9:14 AM EST 28w4d Complaints: ankles swell at work. Can't tolerate compression stockings. Feeling well otherwise. Good FM. No contractions, bleeding, or LOF. Glucola, TDAP today. Growth u/s today. Placenta no longer low-lying. +cardiac activity on u/s. VERONICA SinghNP * Rachele Méndez LPN - 03/03/2023 8:59 AM EST 28w4d Pt denies any concerns, desires tdap. documented in this encounter Nursing Notes * Rachele Méndez LPN - 03/03/2023 9:26 AM EST Patient here for tdap injection. Patient doing well no complaints. Injection given IM as ordered. Patient tolerated well. Patient to follow up as directed. Patient instructed to call if any complications. Patient verbalized understanding of instructions given. Injection site: Left Deltoid Medication Source: Dispensed stock medication documented in this encounter Plan of Treatment Upcoming Encounters Date Type Department Care Team (Late st Contact Info) Description 03/04/2023 11:00 AM EST Office Visit Otolaryngology [facility] [address] [place] [address] Durga Berg PA-C [address] [place] [address] 03/22/2023 10:15 AM EST Office Visit Gynecology/Obstetrics [facility] [address] [place] [address] Jennifer Acosta PA-C [address] [place] [address] 03/31/2023 11:30 AM EST Office Visit Gynecology/Obstetrics [facility] [address] [place] [address] Yenny Farrell CRNP [address] [place] [address] Health Maintenance Due Date Last Done Comments [...] previa, unspecified as to episode of care Need for prophylactic vaccination with combined jfujnqyrfm-acfdyou-siosnxnhg (DTP) vaccine documented in this encounter
--- OUTSIDE RECORDS SUMMARY | 2023-05-17 08:11 | External Medical Summary ---
Author Name Unknown Address Unknown Organization K01:[facility]ATORY [facility] - [address] [place] [address] Laboratory Report Ordering Provider Test Date Status LEONARDOTODD 03/03/2023 09:13:55 Final Observation Date Value Abnormality Reference (Units ) Status Ferritin 03/03/2023 09:13:55 76 13-150 (ng /mL) Final Performing Location LABORATORY [facility] - [address] [place] [place] [address]
--- OUTSIDE RECORDS SUMMARY | 2023-05-17 08:11 | External Medical Summary ---
Author Name Unknown Address Unknown Organization K01:LABORATORY [facility] [place] [place] - [address] [place] [address] Laboratory Report Ordering Provider Test Date Status TODD PATTERSON 03/03/2023 09:13:55 Final Observation Date Value Abnormality Reference (Units ) Status Iron 03/03/2023 09:13:55 81 33-151 (ug/dL) Final Iron-binding capacity 03/03/2023 09:13:55 506 Above high normal 250-425 (ug/dL) Final Transferrin Sat % 03/03/2023 09:13:55 16 15-55 (%) Final Performing Location LABORATORY [facility] [place] [place] [address] [place] [address]
--- OUTSIDE RECORDS SUMMARY | 2023-05-17 08:11 | External Medical Summary | Summary of Care ---
Author Name Unknown Organization [facility] Address [address] [place] [address] Phone [phone] Care Team Providers Care Knotting Machine Operator Name Role Phone Unavailable Primary Care Provider Unavailabl e Reason for Visit * Reason Comments Outpatient Testing Encounter Details Date Type Department Care Team (Late st Contact Info) Description 03/03/2023 9:20 AM EST Laboratory Laboratory, [facility] [address] [place] [phone] [facility] [address] [place] [address] Supervision of high-risk , unspecified trimester Allergies Active Allergy Reactions Criticality Noted [...] money to get more. Never true 01/06/2023 [place] Depression Scale Answer Date Recorded [place] Depression Scale Total 0 02/17/2023 The thought [...] 03/04/2023 11:00 AM EST Office Visit Otolaryngology [facility] [address] [place] [address] Durga Berg PA-C [address] [place] [address] 03/22/2023 10:15 AM EST Office Visit Gynecology/Obstetrics [facility] [address] [place] [address] Jennifer Acosta PA-C [address] [place] [address] 03/31/2023 11:30 AM EST Office Visit Gynecology/Obstetrics [facility] [address] [place] [address] Yenny Farrell CRNP [address] [place] [address] Pending Results Name Type Priority Associated Diagnoses Date /Time 50-G GESTATIONAL GLUCOSE, 1 HOUR Lab Routine Supervision of high-risk , unspecified trimester 03/03/2023 9:13 AM EST SYPHILIS ANTIBODY SCREEN WITH REFLEX TO RPR Lab Routine Supervision of high-risk , unspecified trimester 03/03/2023 9:13 AM EST CBC WITH WBC DIFFERENTIAL AND ANEMIA REFLEX WORKUP Lab Routine Supervision of high-risk , unspecified trimester 03/03/2023 9:13 AM EST SYPHILIS ANTIBODY SCREEN Lab Routine Supervision of high-risk , unspecified trimester 03/03/2023 9:13 AM EST ANEMIA CBC Lab Routine Supervision of high-risk , unspecified trimester 03/03/2023 9:13 AM EST DIFFERENTIAL, AUTOMATED Lab Routine Supervision of high-risk , unspecified trimester 03/03/2023 9:13 AM EST ANEMIA REFLEX CHEMISTRY HOLD Lab Routine Supervision of high-risk , unspecified trimester 03/03/2023 9:13 AM EST Health Maintenance Due Date Last Done Comments Hepatitis B (1 of 3 - 3-dose series) 1996 GARDASIL-HPV IMMUNIZATION SERIES (1 - 2-dose series) 12/11/2007 Depression Screening 2008 Hepatitis C Screening 2014 Pap Smear 2017 COVID-19 Vaccine (3 2022- season) 2022 06/15/2020, 05/25/2020 Influenza Vaccine [...] Diagnoses Diagnosis Supervision of high-risk , unspecified trimester documented in this encounter
--- OUTSIDE RECORDS SUMMARY | 2023-05-17 08:11 | External Medical Summary | Summary of Care ---
Author Name Unknown Organization [facility] Address [address] [place] [address] Phone [phone] Care Team Providers Care Fisher Diver Net Name Role Phone Unavailable Primary Care Provider Unavailabl e Reason for Referral * Evaluate & Treat - Unlimited Visits (Within 10 days (routine)) - Pending Review Specialty Diagnoses / Procedures Referred By Justin estrada Referred To Contact Pharmacist / Pharmacy Diagnoses YING (iron deficiency anemia) Yenny Farrell CRNP [address] [place] [address] Referral ID Status Reason Start Date Expiration Date Visits Requested Visits Authorized [id number] Pending Review Specialty Services Required 03/04/2023 99 99 Question Answer Referral Priority Within 10 days (routine) Where should this appointment be scheduled? [facility] Department: Specialist Specialty: ekg tech Reason for Referral: Anemia Comments Pharmacist Medication Therapy Management: Iron deficiency anemia Mina Dalal RN Reason for Visit * Reason Onset Date Comments Blood Management Program 03/04/2023 Encounter Details Date Type Department Care Team ([facility] Contact Info) Description 03/04/2023 Telephone Patient Blood Management, [place] [address] [place] [address] Yenny Farrell CRNP [address] [place] [address] Blood Management Program Allergies Active Allergy Reactions Criticality Noted Date Comments Cephalosporins 03/27/2014 Urticaria Nickel 03/27/2014 rash documented as of this encounter (statuses as of 03/15/2023) Medications Medication Sig Dispensed Refills Start Date [...] as of this encounter (statuses as of 03/15/2023) Active Problems Problem Noted Date Diagnosed Date Iron deficiency anemia 03/09/2023 Low-lying placenta 01/07/2023 Overview: Noted on anatomy scan. Repeat u/s around 28 wks. Supervision of high-risk , unspecified trimester 11/20/2022 Overview: Initiated care with [facility], records scanned. A+, neg Ab screen [...] as of this encounter (statuses as of 03/15/2023) Immunizations Name Administration Dates Next Due TDAP [...] money to get more. Never true 01/06/2023 [place] Depression Scale Answer Date Recorded [place] Depression Scale Total 0 02/17/2023 The thought [...] encounter Miscellaneous Notes * Telephone Encounter - Mina Dalal RN - 03/04/2023 2:28 PM EST Recommend IV iron per OB MTM protocol. Patient is agreeable, prefers infusion at [facility]. documented in this encounter Plan of Treatment Upcoming Encounters Date Type Department Care Team (Late st Contact Info) Description 03/16/2023 4:00 PM EST Pharmacy Pharmacy, [place] [address] [place] [address] Clinic, [place] [address] [place] [address] 03/22/2023 10:15 AM EST Office Visit Gynecology/Obstetrics [facility] [address] [facility] [place] [address] Jennifer Acosta PA-C [address] [place] [address] 03/31/2023 11:30 AM EST Office Visit Gynecology/Obstetrics [facility] [address] [facility] [place] [address] Yenny Farrell CRNP [address] [place] [address] Scheduled Referrals Name Type Priority Associated Diagnoses [...]
--- OUTSIDE RECORDS SUMMARY | 2023-05-17 08:11 | External Medical Summary | Summary of Care ---
Author Name Unknown Organization [facility] Address [address] [place] [address] Phone [phone] Care Team Providers Care Assurance Manager Name Role Phone Unavailable Primary Care Provider Unavailabl e Reason for Referral * Evaluate & Treat - Unlimited Visits (Within 10 days (routine)) - Pending Review Specialty Diagnoses / Procedures Referred By Justin estrada Referred To Contact Pharmacist / Pharmacy Diagnoses YING (iron deficiency anemia) Yenny Farrell CRNP [address] [place] [address] Referral ID Status Reason Start Date Expiration Date Visits Requested Visits Authorized [id number] Pending Review Specialty Services Required 03/04/2023 99 99 Question Answer Referral Priority Within 10 days (routine) Where should this appointment be scheduled? 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 Never true 01/06/2023 [place] Depression Scale Answer Date Recorded [place] Depression Scale Total 0 02/17/2023 The thought [...] 12:17 PM EST Order received for venofer. Branscomb plan built and routed for signature. Prior auth not needed for venofer. Can schedule once beacon plan is signed. * Telephone Encounter - Mina Dalal RN - 03/04/2023 2:28 PM EST Recommend IV iron per OB MTM protocol. Patient is agreeable, prefers infusion at [facility]. documented in this encounter Plan of Treatment Upcoming Encounters Date Type Department Care Team (Late st Contact Info) Description 03/16/2023 4:00 PM EST Pharmacy Pharmacy, [place] [address] [place] [address] Clinic, [place] [address] [place] [address] Iron deficiency anemia, unspecified iron deficiency anemia type* 03/22/2023 10:15 AM EST Office Visit Gynecology/Obstetric s [facility] [address] [place] [address] Jennifer Acosta PA-C [address] [place] [address] 03/23/2023 10:00 AM EST Pharmacy Pharmacy, [place] [address] [place] [address] Clinic, An[place] [address] [place] [address] 03/31/2023 11:30 AM EST Office Visit Gynecology/Obstetric s Javier Contreras [address] [place] [address] BackerYenny CRNP [address] [place] [address] Scheduled Referrals Name Type Priority Associated Diagnoses [...] deficiency anemia)- Primary Iron deficiency anemia, unspecified Iron deficiency anemia, unspecified iron deficiency anemia type- Primary documented in this encounter
--- OUTSIDE RECORDS SUMMARY | 2023-05-17 08:11 | External Medical Summary ---
Author Name Unknown Address Unknown Organization K01:LABORATORY [facility] - [facility] [address] [place] [address] Laboratory Report Ordering Provider Test Date Status TODD PATTERSON 03/03/2023 09:13:55 Final Observation Date Value Abnormality Reference (Units ) Status Creatinine 03/03/2023 09:13:55 0.5 0.5-1.0 (mg/dL) Final Glomerular filtration rate/1.73 sq M.predicted [Volume Rate/Area] in Serum, Plasma or Blood by Creatinine-based formula (CKD-EPI) 03/03/2023 09:13:55 >90 >=60 (mL/min) Final eGFR is calculated based on the CKD-EPI 2020 equation Performing Location LABORATORY [facility] - [facility] [address] [place] [address]
--- OUTSIDE RECORDS SUMMARY | 2023-05-17 08:11 | External Medical Summary ---
Author Name Unknown Address Unknown Organization K0G:LABORATORY [place] [address] - [address] [place] [address] Laboratory Report Ordering Provider Test Date Status TODD PATTERSON 03/04/2023 11:05:55 Final Observation Date Value Abnormality Reference (Units ) Status Glucose [Mass/volume] in Serum or Plasma --3 hours post dose glucose 03/04/2023 11:05:55 84 70-139 (mg/dL) Final Performing Location LABORATORY [facility] [address] - [address] [place] [address]
--- OUTSIDE RECORDS SUMMARY | 2023-05-17 08:11 | External Medical Summary ---
Author Name Unknown Address Unknown Organization [id number]:LABORATORY [place] [address] [place] [address] Laboratory Report Ordering Provider Test Date Status TODD PATTERSON 03/04/2023 09:03:43 Final Observation Date Value Abnormality Reference (Units ) Status Glucose [Mass/volume] in Serum or Plasma --1 hour post dose glucose 03/04/2023 09:03:43 170 70-179 (mg/dL) Final Performing Location [facility] [address] [place] [address]
--- OUTSIDE RECORDS SUMMARY | 2023-05-17 08:11 | External Medical Summary ---
Author Name Unknown Address Unknown Organization K01:LABORATORY C - [address] [place] [address] Laboratory Report Ordering Provider Test Date Status TODD PATTERSON 03/03/2023 09:13:55 Final Observation Date Value Abnormality Reference (Units ) Status TSH 03/03/2023 09:13:55 3.45 0.27-4.20 (uIU/mL) Final Performing Location [facility] - [address] [place] [address]
--- OUTSIDE RECORDS SUMMARY | 2023-05-17 08:11 | External Medical Summary ---
Author Name Unknown Address Unknown Organization [id number]:LABORATORY [facility] [address] [place] [address] Laboratory Report Ordering Provider Test Date Status TODD PATTERSON 03/03/2023 09:13:55 Final Observation Date Value Abnormality Reference (Units ) Status Glucose [Moles/volume] in Serum or Plasma --1 hour post 50 g glucose PO 03/03/2023 09:13:55 143 Above high normal 70-129 (mg/dL) Final Performing Location LABORATORY [place] [facility] [address] [place] [address]
--- OUTSIDE RECORDS SUMMARY | 2023-05-17 08:11 | External Medical Summary | Summary of Care ---
Author Name Unknown Organization [facility] Address [address] [place] [address] Phone [phone] Care Team Providers Care Psychiatric Registered Nurse Name Role Phone Unavailable Primary Care Provider Unavailabl e Reason for Visit * Reason Comments Blood Management Program Encounter Details Date Type Department Care Team (Late st Contact Info) Description 03/04/2023 Documentation Patient Blood Management, [place] [address] [place] [address] Mina Dalal RN Allergies Active Allergy Reactions Criticality Noted Date Comments Cephalosporins 03/27/2014 Urticaria Nickel 03/27/2014 rash documented as of this encounter (statuses as of 03/04/2023) Medications Medication Sig Dispensed Refills Start Date [...] as of this encounter (statuses as of 03/04/2023) Active Problems Problem Noted Date Diagnosed Date [...] as of this encounter (statuses as of 03/04/2023) Immunizations Name Administration Dates Next Due TDAP [...] money to get more. Never true 01/06/2023 [place] Depression Scale Answer Date Recorded [place] Depression Scale Total 0 02/17/2023 The thought [...] as of this encounter Progress Notes * Mina Dalal RN - 03/04/2023 8:45 AM EST REFERRAL - Patient Blood Management Name: Bernie Samuel REQUESTING SERVICE: [facility] OB REASON FOR REFERRAL: new evaluation outpatient, anemia in [facility]: 05/22/23 Anemia Evaluation: Latest Reference Range & Units 03/03/23 09:13 WBC 4.00 - 10.80 K/uL 14.02 (H) HGB 12.0 - 15.3 g/dL 10.9 (L) HCT 36.0 - 45.2 % 33.8 (L) MCV 81.5 - 97.5 fL 97.7 PLT 140 - 400 K/uL 352 Iron 33 - 151 ug/dL 81 Iron Binding Capacity 250 - 425 ug/dL 506 (H) Transferrin Saturation Percent 15 - 55 % 16 Ferritin 13 - 150 ng/mL 76 Vitamin B12 232 - 1,245 pg/mL 184 (L) Folic Acid >4.5 ng/mL >20.0 Immature Reticuloctye Fraction 2.5 - 20.6 % 24.6 (H) Reticulocyte Hemoglobin 29.7 - 37.4 pg 33.9 (H): Data is abnormally high (L): Data is abnormally low Current Patient Medications: Medications that may impair hemostasis: bASA Medications that may impair iron absorption: none Patient Refused Blood Transfusion? (e.g. Muslim): no Possible Contributing Factors: iron deficiency and vitamin B12 deficiency Treatment Recommendations: B12 1000mcg PO daily IV iron per OB MTM protocol 03/04 - Spoke with Bernie, she is agreeable to IV iron at [facility]. Thank you for allowing Blood Management to participate in the care of this patient. documented in this encounter Plan of Treatment Upcoming Encounters Date Type Department Care Team (Late st Contact Info) Description 03/22/2023 10:15 AM EST Office Visit Gynecology/Obstetrics [facility] [address] [place] [address] Jennifer Acosta PA-C [address] [place] [address] 03/31/2023 11:30 AM EST Office Visit Gynecology/Obstetrics [facility] [address] [place] [address] Yenny Farrell CRNP [address] [place] [address] Health Maintenance Due Date Last Done Comments Hepatitis B (1 of 3 - 3-dose series) 1996 GARDASIL-HPV IMMUNIZATION SERIES (1 - 2-dose series) 12/11/2007 Depression Screening 2008 Hepatitis C Screening 2014 Pap Smear 2017 COVID-19 Vaccine (3 - 24 season) 2022 06/15/2020, 05/25/2020 Influenza Vaccine (FLU [...]
--- OUTSIDE RECORDS SUMMARY | 2023-05-17 08:11 | External Medical Summary ---
Author Name Unknown Address Unknown Organization K01:LAB[facility]ATORY [facility] [place] [address] [place] [address] Laboratory Report Ordering Provider Test Date Status TODD PATTERSON 03/03/2023 09:13:55 Final Observation Date Value Abnormality Reference (Units ) Status Vitamin B12 03/03/2023 09:13:55 184 Below low normal 2 32-1245 (pg/mL) Final Performing Location [facility] - [address] [place] [address]
--- OUTSIDE RECORDS SUMMARY | 2023-05-17 08:11 | External Medical Summary ---
Author Name Unknown Address Unknown Organization K01:LABORATORY [facility] [address] [place] [address] Laboratory Report Ordering Provider Test Date Status TODD PATTERSON 03/03/2023 09:13:55 Final Observation Date Value Abnormality Reference (Units ) Status Folic Acid 03/03/2023 09:13:55 >20.0 >4.5 (ng/ mL) Final Performing Location [facility] - [address] [place] [address]
--- OUTSIDE RECORDS SUMMARY | 2023-05-17 08:11 | External Medical Summary | Summary of Care ---
Author Name Unknown Organization [facility] Address [address] [place] [address] Phone [phone] Care Team Providers Care Core Paster Name Role Phone Unavailable Primary Care Provider Unavailabl e Encounter Details Date Type Department Care Team (Late st Contact Info) Description 03/03/2023 Telephone Gynecology/Obstetrics [facility] [address] [facility] [place] [id number] Genny Ann CRNP [address] [place] [address] Allergies Active Allergy Reactions Criticality Noted Date [...] of this encounter (statuses as of 03/03/2023) Social History Tobacco Use Types Packs/Day Years [...] money to get more. Never true 01/06/2023 [place] Depression Scale Answer Date Recorded [place] Depression Scale Total 0 02/17/2023 The thought [...] encounter Miscellaneous Notes * Telephone Encounter - Rachele Méndez LPN - 03/03/2023 9:06 AM EST [facility] pre-admit forms faxed, placed in scan bin. documented in this encounter Plan of Treatment Upcoming Encounters Date Type Department Care Team (Late st Contact Info) Description 03/03/2023 9:30 AM EST Office Visit Gynecology/Obstetric s [facility] [address] [address] Genny Ann CRNP [address] [place] [address] Supervision of high-risk , unspecified trimester*; Obesity in , antepartum; Low-lying placenta; Need for prophylactic vaccination with combined qaxegenlwz-urojcul-ua rtussis (DTP) vaccine 03/04/2023 11:00 AM EST Office Visit Otolaryngology [facility] [address] [address] Durga Berg PA-C [address] [place] [address] 03/31/2023 11:30 AM EST Office Visit Gynecology/Obstetric s J[facility] Contreras [address] [place] [address] Backer, Yenny RUFINA Narayan [address] [place] [address] Health Maintenance Due Date Last Done Comments Hepatitis B (1 of 3 - 3-dose series) 1996 GARDASIL-HPV IMMUNIZATION SERIES (1 - 2-dose series) 12/11/2007 Depression Screening 2008 Hepatitis C Screening 2014 Pap Smear 2017 COVID-19 Vaccine ( season) 2022 06/15/2020, 05/25/2020 Influenza Vaccine (FLU shot) (#1) 2022 02/12/2014, 04/03/2013, 04/11/2012, Additional history exists DTaP,Tdap,and Td Vaccines (2 - Td or Tdap) 11/29/2029 11/30/2019 Gonorrhea / Chlamydia Screen Discontinued 10/14/2022 [...]
--- OUTSIDE RECORDS SUMMARY | 2023-05-17 08:11 | External Medical Summary | Summary of Care ---
Author Name Unknown Organization [facility] Address [address] [place] [address] Phone [phone] Care Team Providers Care Traveling Engineer Name Role Phone Unavailable Primary Care Provider Unavailabl e Reason for Visit * Reason Comments NEW PATIENT Encounter Details Date Type Department Care Team ([facility] st Contact Info) Description 03/04/2023 11:00 AM EST Office Visit Otolaryngology [facility] [address] [facility] [place] [address] Durga Berg PA-C [address] [place] [address] Chronic eczematoid otitis externa of both ears* Allergies Active Allergy Reactions Criticality Noted Date [...] trimester 11/20/2022 Overview: Initiated care with [facility], records scanned. A+, neg Ab screen [...] 9 Q uit: 09/28/2022 Smokeless Tobacco: Never Tobacco Cessation:Counseling Given: Not Answered Alcohol Use Standard Drinks/Week Comments Not Currently [...] money to get more. Never true 01/06/2023 [place] Depression Scale Answer Date Recorded [place] Depression Scale Total 0 02/17/2023 The thought [...] Sign Reading Time Taken Comments Blood Pressure - - Pulse - - Temperature 36.6 C (97.9 F) 03/04/2023 1 1:02 AM EST Respiratory Rate - - Oxygen Saturation - - Inhaled Oxygen Concentration - - Weight 111.6 kg (246 lb 1.6 oz) 023 11:02 AM EST Height 157.5 cm (5' 2") 03/04/2023 11:0 2 AM EST Body Mass Index 45.01 03/04/2023 11:02 AM EST documented in this encounter Progress Notes * Druga Berg PA-C - 03/04/2023 2:04 PM EST 03/04/2023 HISTORY OF PRESENT ILLNESS This 27 year old YO female is seen at the request of Froy Carpenter MD for the evaluation of recent recurrent OM and recent MRSA of R EAC. In November, 3 months ago, she developed right ear pain and swelling. She was seen at [facility] and had culture of her right ear which showed MRSA. Initially she was seen and placed on ciprodex gtts, then PO augmentin. Was seen by ENT in [facility] at the time who recommend admission and IV antibiotics for concern of mastoiditis and MRSA positive culture. Hearing from right ear felt diminished at that time. She was 16 weeks at the time, now is 28W5D. CT scan in the ER showed cellulitis, OE, and OM with no evidence of mastoiditis. They noted no clinical signs of mastoiditis throughout her admission in November, either. She was treated with IV Unasyn and Vancomycin and discharged home with one week of PO augmentin, clindamycin, and ciprodex. Pt reports her symptoms resolved with the treatment above and has had no issues since. Hearing is normal in both ears. Her only complaint today is itchy of her left ear-- she has hx of eczema of external ear/canal- previously used topical steroid but has not used recently. She denies bilateral hearing loss, bilateral otalgia, bilateral otorrhea, bilateral aural pressure,and bilateral tinnitis. Remaining ear review of symptoms reveals: Head trauma: denied Dizziness: vertigo denied Noise exposure: no occupational exposure and no firearm exposure Problem List Patient Active Problem List Diagnosis Code Supervision of high-risk , unspecified trimester O09.90 Obesity in , antepartum O99.210 Low-lying placenta O44.40 Past Medical History: Diagnosis Date Endometriosis Past Surgical History: Procedure Laterality Date DENTAL SURGERY PROCEDURE NEC wisdom teeth Medications Current Outpatient Medications Medication Sig Dispense Refill Betamethasone Dipropionate 0.05 % External Cream (Diprosone) Apply topically to affected area 2 times a day. Apply to outer ear canal on left as directed for 7 days, then as needed for itching/dryness. 30 g 0 28-0.8 MG Oral Tablet Take by mouth. Aspirin 81 MG Oral Tablet Chewable Take 1 Tablet by mouth in the morning. 90 Tablet 3 Vitamin B-12 1000 MCG Oral Tablet (Cyanocobalamin) Take 1 Tablet by mouth in the morning. 30 Tablet5 No current facility-administered medications for this visit. Allergies Review of patient's allergies indicates: Allergen Reactions Cephalosporins Urticaria Nickel rash Family History Family History Problem Relation Age of Onset No Known Problems Mother No Known Problems Father Colon cancer Grandmother (Maternal) Social History Social History Tobacco Use Smoking status: Former Packs/day: 0.25 Years: 9.00 Additional pack years: 0.00 Total pack years: 2.25 Types: Cigarettes Quit date: 09/28/2022 Years since quittin.4 Smokeless tobacco: Never Substance Use Topics Alcohol use: Not Currently Vaping/E-Cigarette Use Vaping/E-Cigarette Substances Vaping/E-Cigarette Devices 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 PHYSICAL EXAMINATION: Vital Signs: Filed Vitals: 03/04/23 1102 Temp: 36.6 C (97.9 F) TempSrc: Tympanic Weight: 111.6 kg (246 lb 1.6 oz) Height: 1.575 m (5' 2") General: this is a healthy appearing female who appears her stated age. The patient is alert and appropriately verbally conversant without hoarseness. Face: The face was inspected and no cutaneous masses or lesions were visualized. There was no erythema or edema noted. Facial movement was symmetric without weakness. No skin lesions were detected. There was no sinus tenderness elicited. The parotid and submandibular glands were normal to palpation. Eyes: Examination of the eyes revealed no lesions. Pupils were equal, round, and reactive to light and accommodation. Extra-ocular muscle function was intact. No nystagmus was observed. Lungs: normal respiratory effort Heart: normal rate IN ORDER TO BETTER EXAMINE THE EARS, THE PATIENT WAS EXAMINED USING THE OPERATING MICROSCOPE. FINDINGS ARE NOTED BELOW. Ears: Examination of the ears revealed that the auricles were normally formed with no lesions. There is dryness and flaking of skin on left at entrance of EAC. The right external auditory canal was clear of impacting cerumen and WNL. The right TM was WNL. Theright middle ear space was WNL. The left external auditory canal was clear of impacting cerumen and WNL. The left TM was WNL. The left middle ear space was WNL Audiogram: Pt declines audio testing today-- feels her hearing is fine and does not want to be tested today. ASSESSMENT: 1. Chronic eczematoid otitis externa of both ears - Betamethasone Dipropionate 0.05 % External Cream (Diprosone); Apply topically to affected area 2 times a day. Apply to outer ear canal on left as directed for 7 days, then as needed for itching/dryness. Dispense: 30 g; Refill: 0 Pt is doing well today. No hearing concerns and declines audio today. Treatment as above for dryness/eczema of external canal. F/U with our office PRN. Pt verbalized understanding and agrees with plan. Questions/Concerns addressed. Durga Berg PA-C [facility] OTOLARYNGOLOG[facility] [address] [address] 03/04/2023 3:41 PM documented in this encounter Nursing Notes * Kathryn Jimenez LPN - 03/04/2023 11:03 AM EST Patient presents today for ear issues. States her right ear was red and swollen went to [facility]. Had scans completed. Had tested positive in ear for MRSA. She notes the right ear is doing good. Left earis causing her issues. Left ear symptoms are itchy,draining. Hearing is good in both ears. She is 7months . documented in this encounter Plan of Treatment Upcoming Encounters Date Type Department Care Team (Late st Contact Info) Description 03/22/2023 10:15 AM EST Office Visit Gynecology/Obstetrics [address] [place] [address] Jennifer Acosta PA-C [address] [place] [address] 03/31/2023 11:30 AM EST Office Visit Gynecology/Obstetrics Javier Contreras [address] [place] [address] Yenny Farrell CRNP [address] [place] [address] Health Maintenance Due Date Last Done Comments [...] as of this encounter Visit Diagnoses Diagnosis Chronic eczematoid otitis externa of both ears- Primary documented in this encounter
--- OUTSIDE RECORDS SUMMARY | 2023-05-17 08:11 | External Medical Summary ---
Author Name Unknown Address Unknown Organization K0G:LABORATORY [facility] [address] [place] [address] Laboratory Report Ordering Provider Test Date Status TODD PATTERSON 03/04/2023 10:00:35 Final Observation Date Value Abnormality Reference (Units ) Status Glucose, 2-hr post glucose challenge 03/04/2023 10:00:35 109 70-154 (mg/dL) Final Performing Location LABORATORY [facility] [address] [place] [address]
--- OUTSIDE RECORDS SUMMARY | 2023-05-17 08:11 | External Medical Summary | Summary of Care ---
Author Name Unknown Organization [facility] Address [address] [place] [address] Phone [phone] Care Team Providers Care Research Laboratory Technician Name Role Phone Unavailable Primary Care Provider Unavailabl e Reason for Referral * Evaluate & Treat - Unlimited Visits (Within 10 days (routine)) Specialty Diagnoses / Procedures Referred By Justin estrada Referred To Contact Yenny Farrell CRNP [address] [place] [address] Referral ID Status Reason Start Date Expiration Date V isits Requested Visits Authorized Specialty Services Required Question Answer Referral Priority Within 10 days (routine) [facility] this [facility] be scheduled? [facility] Reason for Visit * Reason Onset Date Comments Test Results 03/04/2023 Encounter Details Date Type Department Care Team ([facility] Contact Info) Description 03/04/2023 Telephone Gynecology/Obstetrics [facility] [address] [place] [address] Yenny Farrell CRNP [address] [place] [address] Test Results Allergies Active Allergy Reactions Criticality Noted Date [...] the morning. 30 Tablet 5 03/04/2023 Active documented as of this encounter (statuses as of 03/04/2023) Active Problems Problem Noted Date Diagnosed Date Low-lying placenta 01/07/2023 Overview: Noted on anatomy scan. Repeat u/s around 28 wks. Supervision of high-risk , unspecified trimester 11/20/2022 Overview: Initiated care with [facility], records scanned. A+, neg Ab screen [...] money to get more. Never true 01/06/2023 [place] Depression Scale Answer Date Recorded [place] Depression Scale Total 0 02/17/2023 The thought [...] encounter Miscellaneous Notes * Telephone Encounter - Bernie Hernandez LPN - 03/04/2023 9:17 AM EST Patient notified. * Telephone Encounter - Yenny Farrell CRNP - 03/04/2023 8:08 AM EST +anemia. Since her hemoglobin is <11, recommend iron infusions. Sending a referral to blood mgmtto coordinate these. B12 is low, which contributes to anemia. Sending rx for B12 supplements. RUFINA Aguero documented in this encounter Plan of Treatment Upcoming Encounters Date Type Department Care Team (Late st Contact Info) Description 03/04/2023 11:00 AM EST Office Visit Otolaryngology [facility] [address] [place] [address] Durga Berg PA-C [address] [place] [address] 03/22/2023 10:15 AM EST Office Visit Gynecology/Obstetrics [facility] [address] [place] [address] Jennifer Acosta PA-C [address] [place] [address] 03/31/2023 11:30 AM EST Office Visit Gynecology/Obstetrics [facility] [address] [place] [address] Yenny Farrell CRNP [address] [place] [address] Scheduled Referrals Name Type Priority Associated Diagnoses Orde r Schedule BLOOD MANAGEMENT REFERRAL Referral Within 10 days (routine) Antepartum anemia complicating Ordered: 03/04/2023 Health Maintenance Due Date Last [...] as of this encounter Visit Diagnoses Diagnosis Antepartum anemia complicating - Primary Anemia, antepartum documented in this encounter
--- OUTSIDE RECORDS SUMMARY | 2023-05-17 08:11 | External Medical Summary | Summary of Care ---
Author Name Unknown Organization [facility] Address [address] [place] [address] Phone [phone] Care Team Providers Care Gear Hobber Operator Name Role Phone Unavailable Primary Care Provider Unavailabl e Encounter Details Date Type Department Care Team (Late st Contact Info) Description 03/16/2023 Orders Only Gynecology/Obstetrics [facility] [address] [place] [address] Yenny Farrell CRNP [address] [place] [address] Iron deficiency anemia, unspecified iron deficiency anemia [...] money to get more. Never true 01/06/2023 [place] Depression Scale Answer Date Recorded [place] Depression Scale Total 0 02/17/2023 The thought [...] PM EST Pharmacy Pharmacy, [place] [address] [place] [facility] [place] [address] Clinic, Anemia [address] [place] [address] Iron deficiency anemia, unspecified iron deficiency anemia type* 03/22/2023 10:15 AM EST Office Visit Gynecology/Obstetric [facility] [address] [place] [address] Jennifer Acosta PA-C [address] [place] [address] 03/23/2023 10:00 AM EST Pharmacy Pharmacy, [place] [address] [place] [address] Clinic, [facility] [address] [place] [address] 03/31/2023 11:30 AM EST Office Visit Gynecology/Obstetric s Javier Contreras [address] [place] [address] Yenny Farrell CRNP [address] [place] [address] Health Maintenance Due Date Last Done Comments [...] anemia, unspecified iron deficiency anemia type- Primary Iron deficiency anemia, unspecified iron deficiency anemia type- Primary documented in this encounter
--- OUTSIDE RECORDS SUMMARY | 2023-05-17 08:11 | External Medical Summary | Summary of Care ---
Author Name Unknown Organization [facility] Address [address] [place] [address] Phone [phone] Care Team Providers Care Rod Buster Helper Name Role Phone Unavailable Primary Care Provider Unavailabl e Reason for Visit * Reason Comments Outpatient Testing Encounter Details Date Type Department Care Team (Late st Contact Info) Description 03/04/2023 8:10 AM EST Laboratory Laboratory, [facility] [address] [place] [id number] [facility] [address] [place] [address] Glucose intolerance of Allergies Active Allergy Reactions Criticality Noted Date [...] money to get more. Never true 01/06/2023 [place] Depression Scale Answer Date Recorded [place] Depression Scale Total 0 02/17/2023 The thought [...] 03/22/2023 10:15 AM EST Office Visit Gynecology/Obstetrics [facility] [address] [place] [address] Jennifer Acosta PA-C [address] [place] [address] 03/31/2023 11:30 AM EST Office Visit Gynecology/Obstetrics [facility] [address] [place] [address] Yenny Farrell CRNP [address] [place] [address] Pending Results Name Type Priority Associated Diagnoses Date /Time GESTATIONAL GLUCOSE TOLERANCE, 3 HOUR Lab Routine Glucose intolerance of 03/04/2023 7:59 AM EST 100-G GESTATIONAL GLUCOSE, 3 HOUR Lab Routine Glucose intolerance of 03/04/2023 11:05 AM EST Health Maintenance Due Date Last [...] Not on filedocumented as of this encounter Procedures Procedure Name Priority Date/Time Associated Diagnosis Comments 100-G GESTATIONAL GLUCOSE, 2 HOUR Routine 03/04/2023 10:00 AM EST Glucose intolerance of 100-G GESTATIONAL GLUCOSE, 1 HOUR Routine 03/04/2023 9:03 AM EST Glucose intolerance of 100-G GESTATIONAL GLUCOSE, FASTING Routine 03/04/2023 7:59 AM EST Glucose intolerance of documented in this encounter Results * 100-G GESTATIONAL GLUCOSE, 2 HOUR (03/04/2023 10:00 AM EST) 100-g Gestational Glucose, 2 Hour 109 70 - 154 mg/dL 03/04/2023 11:02 AM EST LABORATORY [facility] 57-10 Blood Venous blood specimen / Unknown Venipuncture / Unknown 03/04/2023 10:00 AM EST 03/04/2023 10:00 AM EST Yenny Narayan Jami MARTINNP LAB BLOOD O RDERABLES Performing Organization Address City/[facility]/ZIP Co de Phone Number LABORATORY [facility] 57-[address] [place] [address] * 100-G GESTATIONAL GLUCOSE, 1 HOUR (03/04/2023 9:03 AM EST) 100-g Gestational Glucose, 1 Hour 170 70 - 179 mg/dL 03/04/2023 10:04 AM EST LAB[facility]ORY [place] 57-10 Blood Venous blood specimen / Unknown Venipuncture / Unknown 03/04/2023 9:03 AM EST 03/04/2023 9:03 AM EST Yenny Apontesamantha MARTINNP LAB BLOOD O RDERABLES Performing Organization Address [facility] Co de Phone Number LABORATORY [facility] [address] [place] [address] * 100-G GESTATIONAL GLUCOSE, FASTING (03/04/2023 7:59 AM EST) 100-g Gestational Glucose, Fasting 92 70 - 94 mg/dL 03/04/2023 10:03 AM EST LAB[facility]ORY [place] 57-10 Blood Venous blood specimen / Unknown Venipuncture / Unknown 03/04/2023 7:59 AM EST 03/04/2023 7:59 AM EST Narrative LABORATORY [facility] 57-10 - 03/04/2023 10:03 AM EST Based on ACOG guideline, gestational diabetes mellitus is diagnosed when any of the following is met: Fasting is greater than or equal to 95 mg/dL 1 hour is greater than or equal to 180 mg/dL 2 hour is greater than or equal to 155 mg/dL 3 hour is greater than or equal to 140 mg/dL Yenny Apontesamantha MARTINNP LAB BLOOD O RDERABLES Performing Organization Address City/[facility]/ZIP Co de Phone Number LABORATORY [facility] 57[address] [place] [address] documented in this encounter Visit Diagnoses Diagnosis Glucose intolerance of Abnormal maternal glucose tolerance, complicating , childbirth, or the puerperium, unspecified as to episode of care documented in this encounter
--- OUTSIDE RECORDS SUMMARY | 2023-05-17 08:11 | External Medical Summary | Summary of Care ---
Author Name Unknown Organization [facility] Address [address] [place] [address] Phone [phone] Care Team Providers Care Azure Architect Name Role Phone Unavailable Primary Care Provider Unavailabl e Reason for Visit * Reason Onset Date Comments Test Results 03/03/2023 Encounter Details Date Type Department Care Team ([facility] Contact Info) Description 03/03/2023 Telephone Gynecology/Obstetrics [facility] [address] [place] [address] BackerYenny CRNP [address] [place] [address] Test Results Allergies Active Allergy Reactions Criticality [...] money to get more. Never true 01/06/2023 [place] Depression Scale Answer Date Recorded [place] Depression Scale Total 0 02/17/2023 The thought [...] Telephone Encounter - Denisa Qureshi RN - 03/03/2023 2:33 PM EST GLUCOSE - [facility] Date/Time Value Ref Range Status 11/25/2022 10:50 AM 123 (H) 70 - 120 mg/dL Final Patient notified of abnormal glucola. The order has been placed in [facility]. Patient. advised to be NPO after 10pm the night before the test.The patient must stay on the premises for the entire time of the test. Patient counseled to take something to eat for after testing. Patient transferred to [facility] to schedule. * Telephone Encounter - Yenny Farrell CRNP - 03/03/2023 2:14 PM EST Elevated 1 hr glucose - please notify pt and have her schedule 3 hr GTT. Thanks! RUFINA Aguero documented in this encounter Plan of Treatment Upcoming Encounters Date Type Department Care Team (Late st Contact Info) Description 03/04/2023 11:00 AM EST Office Visit Otolaryngology [facility] [address] [place] [address] Durga Berg PA-C [address] [place] [address] 03/22/2023 10:15 AM EST Office Visit Gynecology/Obstetrics [facility] [address] [place] [address] Jennifer Acosta PA-C [address] [place] [address] 03/31/2023 11:30 AM EST Office Visit Gynecology/Obstetrics [facility] [address] [place] [address] Yenny Farrell CRNP [address] [place] [address] Scheduled Orders Name Type Priority Associated Diagnoses Orde r Schedule GESTATIONAL GLUCOSE TOLERANCE, 3 HOUR Lab Routine Glucose intolerance of Expected: 03/03/2023 (Approximate), Expires: 03/03/2024 Health Maintenance Due Date Last Done Comments [...] as of this encounter Visit Diagnoses Diagnosis Glucose intolerance of - Primary Abnormal maternal glucose tolerance, complicating , childbirth, or the puerperium, unspecified as to episode of care documented in this encounter
--- OUTSIDE RECORDS SUMMARY | 2023-05-17 08:11 | External Medical Summary | Summary of Care ---
Author Name Unknown Organization [facility] Address [address] [place] [address] Phone [phone] Care Team Providers Care Lathe Tender Name Role Phone Unavailable Primary Care Provider Unavailabl e Reason for Visit * Reason Onset Date Comments Anemia Follow-Up 03/16/2023 Encounter Details Date Type Department Care Team (Late st Contact Info) Description 03/16/2023 4:00 PM [facility], [place] [address] [place] [address] Clinic, Anemia [address] [place] [address] Iron deficiency anemia, unspecified iron deficiency anemia [...] to get more. Never true 01/06/2023 [place] Depression Scale Answer Date Recorded [place] Depression Scale Total 0 02/17/2023 The thought [...] of this encounter Progress Notes * Dinora Kc, [facility] - 03/16/2023 8:34 AM EST Patient referred by RUFINA Gallegos for evaluation of anemia by the Anemia Clinic. Called patient to introduce role/clinic and to review labs from 03/03. Hgb: 10.9 g/dL TSAT: 16 % Ferritin: 76 ng/mL B12: 184 pg/mL FA: >20.0 ng/mL GA: 30w3d Estimated Date of Delivery: 05/22/23 Hgb is below target range for the third trimester. Iron studies within target range. B12 level below target range. FA level within target range. Patient is taking B12 1000mcg daily and appears to be tolerating it well. Patient reports feeling pretty normal. Patient qualifies for IV iron repletion. Plan: Venofer 300 mg IV weekly x 3 doses at [facility]. Orders placed and routed to appropriate parties. Patient agreeable to intervention. Follow-up labs (CBCD, ferritin, iron screen, retic panel, B12, and FA) to be scheduled 4-6 weeks after iron repletion completed if appropriate prior to delivery. Anemia Clinic will continue to follow. Thank you for allowing us to participate in the care of thispatient. Thanks, Dinora Kc [facility] Clinical Pharmacist documented in this encounter Plan of Treatment Upcoming Encounters Date Type Department Care Team (Late st Contact Info) Description 03/22/2023 10:15 AM EST Office Visit Gynecology/Obstetrics [facility] [address] [place] [address] Jennifer Acosta PA-C [address] [place] [address] 03/23/2023 10:00 AM EST Pharmacy Pharmacy, [place] [address] [place] [address] Clinic, Anemia [address] [place] [address] 03/31/2023 11:30 AM EST Office Visit Gynecology/Obstetrics [facility] [address] [place] [address] Yenny Farrell CRNP [address] [place] [address] Health Maintenance Due Date Last Done Comments [...]
--- OUTSIDE RECORDS SUMMARY | 2023-05-17 08:11 | External Medical Summary ---
Author Name Unknown Address Unknown Organization [id number]:[place] [facility] [place] [address] [place] [address] Laboratory Report Ordering Provider Test Date Status TODD PATTERSON 03/03/2023 09:13:55 Final Observation Date Value Abnormality Reference (Units ) Status WBC, Total 03/03/2023 09:13:55 14.02 Above high normal 4 .00-10.80 (K/uL) Final RBC 03/03/2023 09:13:55 3.46 3.85-5.15 (M/uL) Final Hemoglobin 03/03/2023 09:13:55 10.9 Below low normal 12 .0-15.3 (g/dL) Final Anemia reflex testing trigge rs on a HGB < 12.0 for Females and HGB < 13.0 for Males in accordance with the WHO Anemia Guidelines
Anemia reflex testing triggers on a HGB < 12.0 for Females and HGB < 13.0 for Males in accordance with the WHO Anemia Guidelines HCT 03/03/2023 09:13:55 33.8 Below low normal 36. 0-45.2 (%) Final MCV 03/03/2023 09:13:55 97.7 81.5-97.5 (fL) Final MCH 03/03/2023 09:13:55 31.5 27.0-34.0 (pg) Final MCHC 03/03/2023 09:13:55 32.2 32.0-36.0 (g/dL) Final RDW 03/03/2023 09:13:55 13.4 11.5-15.5 (%) Final Platelets 03/03/2023 09:13:55 352 140-400 (K /uL) Final MPV 03/03/2023 09:13:55 9.9 6.6-11.1 ( fL) Final Nucleated erythrocytes/100 leukocytes [Ratio] in Blood by Automated count 03/03/2023 09:13:55 0 <=0 (/100 WBCs) Final Performing Location [place] [facility] [place] [address] [facility] [address]
--- OUTSIDE RECORDS SUMMARY | 2023-05-17 08:11 | External Medical Summary ---
Author Name Unknown Address Unknown Organization [id number]:LABORATORY [facility] 57-[address] - [address] [place] [address] Laboratory Report Ordering Provider Test Date Status TODD PATTERSON 03/04/2023 07:59:36 Final Based on ACOG guideline, ges tational diabetes mellitus is diagnosed when any of the following is met:
Fasting is greater than or equal to 95 mg/dL
1 hour is greater than or equal to 180 mg/dL
2 hour is greater than or equal to 155 mg/dL
3 hour is greater than or equal to 140 mg/dL Observation Date Value Abnormality Reference (Units ) Status Glucose, fasting 03/04/2023 07:59:36 92 70- 94 (mg/dL) Final Performing Location LABORATORY [facility] 57-1 0 - [address] [place] [address]
--- OUTSIDE RECORDS SUMMARY | 2023-05-17 08:11 | External Medical Summary ---
Author Name Unknown Address Unknown Organization K01:LABORATORY [facility] - [facility] [place] [address] Laboratory Report Ordering Provider Test Date Status TODD PATTERSON 03/03/2023 09:13:55 Final Observation Date Value Abnormality Reference (Units ) Status Retic, % (auto) 03/03/2023 09:13:55 2.44 Above high normal 0.80-1.90 (%) Final Reticulocytes, Absolute 03/03/2023 09:13:55 84.7 31.3-100.1 (K/uL) Final Reticulocyte fraction, immature 03/03/2023 09:13:55 24.6 Above high normal 2.5-20.6 (%) Final Reticulocyte HGB 03/03/2023 09:13:55 33.9 29.7-37.4 (pg) Final Performing Location LABORATORY [facility] [place] - [address] [place] [address]
--- OUTSIDE RECORDS SUMMARY | 2023-05-17 08:12 | External Medical Summary | Summary of Care ---
Author Name Unknown Organization [facility] Address [address] [place] [address] Phone [phone] Care Team Providers Care Spanner Operator Name Role Phone Unavailable Primary Care Provider Unavailabl e Reason for Visit * Reason Comments Return Visit Encounter Details Date Type Department Care Team ([facility] Contact Info) Description 02/17/2023 8:30 AM EDT Office Visit Gynecology/Obstetric s Javier Contreras [address] [place] [address] BackYenny lynne CRNP [address] [place] [address] Supervision of high-risk , unspecified trimester*; Obesity in , antepartum; Low-lying placenta; Abnormal radiological finding on screening of mother Allergies Active Allergy Reactions Criticality Noted Date Comments Cephalosporins 03/27/2014 Urticaria Nickel 03/27/2014 rash documented as of this encounter (statuses as of 02/17/2023) Medications Medication Sig Dispensed Refills Start Date End Date Status 28-0.8 MG Oral Tablet Take by mouth. 0 Active Aspirin 81 MG Oral Tablet ChewableIndications:H igh-risk in second trimester Take 1 Tablet by mouth in the morning. 90 Tablet 3 11/25/2022 Active documented as of this encounter (statuses as of 02/17/2023) Active Problems Problem Noted Date Diagnosed Date [...] as of this encounter (statuses as of 02/17/2023) Social History Tobacco Use Types Packs/Day Years [...] money to get more. Never true 01/06/2023 [place] Depression Scale Answer Date Recorded [place] Depression Scale Total 0 02/17/2023 The thought [...] Sign Reading Time Taken Comments Blood Pressure 116/76 02/17/2023 8:26 AM EDT Pulse - - Temperature - - Respiratory Rate - - Oxygen Saturation - - Inhaled Oxygen Concentration - - Weight 111.1 kg (245 lb) 02/17/2023 8:26 AM EDT Height - - Body Mass Index 44.81 01/20/2023 9:58 AM EDT documented in this encounter Progress Notes * RUFINA Gallegos - 02/17/2023 8:29 AM EDT 26w4d Feeling baby move. No bleeding/ctx. Declines flu vaccine. Start considering press machine feeder selection, childbirth classes. Labs and u/s for growth/placenta check with next visit. Discussed Tdap. RUFINA Aguero * Ameena Linares LPN - 02/17/2023 8:27 AM EDT 26w4d Denies vaginal bleeding/rom + movement No new concerns Declines flu documented in this encounter Plan of Treatment Upcoming Encounters Date Type Department Care Team (Late st Contact Info) Description 03/03/2023 8:30 AM EST Imaging Radiology [facility]nd [facility] [address] [facility] [place] [address] 03/03/2023 9:20 AM EST Laboratory Laboratory, [facility] [address] [facility] [place] [phone] [facility] [address] [facility] [place] [address] 03/03/2023 9:30 AM EST Office Visit Gynecology/Obstetrics [facility] [address] [facility] [place] [address] Genny Ann CRNP [address] [facility] [place] [address] 03/03/2023 10:00 AM EST Office Visit Otolaryngology [facility] [address] [facility] [address] [place] [address] Juana Zapata PA-C [address] [place] [address] [address] [place] [phone] 03/04/2023 11:00 AM EST Office Visit Otolaryngology [facility] [address] [place] [address] Durga Berg PA-C [address] [facility] [place] [address] Scheduled Orders Name Type Priority Associated Diagnoses Orde r Schedule 50-G GESTATIONAL GLUCOSE, 1 HOUR Lab Routine Supervision of high-risk , unspecified trimester Expected: 03/03/2023 (Approximate), Expires: 02/18/2024 SYPHILIS ANTIBODY SCREEN WITH REFLEX TO RPR Lab Routine Supervision of high-risk , unspecified trimester Expected: 03/03/2023 (Approximate), Expires: 02/18/2024 CBC WITH WBC DIFFERENTIAL AND ANEMIA REFLEX WORKUP Lab Routine Supervision of high-risk , unspecified trimester Expected: 03/03/2023 (Approximate), Expires: 02/18/2024 PREG FOLLOW-UP EACH FETUS Medical Imaging Routine Supervision of high-risk , unspecified trimester Obesity in , antepartum Low-lying placenta Abnormal radiological finding on screening of mother Expected: 03/03/2023 (Approximate), Expires: 03/20/2024 Health Maintenance Due Date Last Done Comments [...] previa, unspecified as to episode of care Abnormal radiological finding on screening of mother Abnormal findings on screening documented in this encounter
--- OUTSIDE RECORDS SUMMARY | 2023-05-17 08:12 | External Medical Summary | Summary of Care ---
Author Name Unknown Organization [facility] Address [address] [place] [address] Phone [phone] Care Team Providers Care Factory Maintenance Technician Name Role Phone Unavailable Primary Care Provider Unavailabl e Reason for Visit * Reason Comments New Visit Encounter Details Date Type Department Care Team Description 11/25/2022 Office Visit Gynecology/Obstetrics [facility] [address] [place] [address] Yenny Farrell CRNP [address] [facility] [place] [address] High-risk in second trimester*; Obesity in , antepartum Allergies Active Allergy Reactions Severity Noted Date Comments Cephalosporins 03/27/2014 Urticaria Nickel 03/27/2014 rash documented as of this encounter (statuses as of 11/25/2022) Medications Medication Sig Dispensed Refills Start Date End Date Status 28-0.8 MG Oral Tablet Take by mouth. 0 Active Aspirin 81 MG Oral Tablet ChewableIndications:H igh-risk in second trimester Take 1 Tablet by mouth in the morning. 90 Tablet 3 11/25/2022 Active documented as of this encounter (statuses as of 11/25/2022) Active Problems Problem Noted Date Supervision of high-risk , unsp ecified trimester 11/20/2022 Overview: Initiated care with [facility], records scanned. A+, neg Ab screen Rubella immune RPR non-reactive Hep B non-reactive Hep C non-reactive HIV non-reactive Gc/Ct on 10/14/22 neg/neg Pap 07/2022 neg Urine culture neg CORY 05/22/23 based on LMP of 08/15/22 U/A on 10/19/22: 10w0d BP elevated 7 at 10w6d: 149/89 Obesity in , antepartum 023 Overview: Class 3 Early GTT, baseline preE labs, baby ASA, growth q4 weeks, NST 34 weeks, delivery 39th week Estimated Date of Delivery Comme nts Yes 05/22/2023 Based on last me nstrual period of 08/15/2022 (Approximate) documented as of this encounter (statuses as of 11/25/2022) Social History Tobacco Use Types Packs/Day Years Used Date Smoking Tobacco: Former Cigarettes 0.3 9 Q uit: 09/28/2022 Smokeless Tobacco: Never Alcohol Use Standard Drinks/Week Comments Not Currently 0 (1 standard drink = 0.6 oz pur e alcohol) Food Insecurity Answer Date Recorded Within the past 12 months, y ou worried that your food would run out before you got money to buy more. Never true 11/02/2022 Within the past 12 months, t he food you bought just didn't last and you didn't have money to get more. Never true 11/02/2022 Estimated Date of Delivery Comme nts Yes 05/22/2023 Based on last me nstrual period of 08/15/2022 (Approximate) Sex Assigned at Date Recorded Female 11/02/2022 1:07 PM E DT Job Start Date Occupation Industry Not on file Not on file Not on file documented as of this encounter Last Filed Vital Signs Vital Sign Reading Time Taken Comments Blood Pressure 128/82 11/25/2022 9:23 AM EDT Pulse - - Temperature - - Respiratory Rate - - Oxygen Saturation - - Inhaled Oxygen Concentration - - Weight 108.4 kg (239 lb) 11/25/2022 9:23 AM EDT Height 157.5 cm (5' 2") 11/25/2022 9:23 AM EDT Body Mass Index 43.71 11/25/2022 9:23 AM EDT documented in this encounter Progress Notes * Yenny Narayan Jami, RUFINA - 11/25/2022 9:46 AM EDT CC: NOB HPI: Bernie Samuel is a 26 year old female here for initial OB exam. CORY 05/22/23 by LMP. She initiated care through [facility] and is transferring here. She plans to deliver at [facility]. Outside records and labs reviewed, will scan to EMR. Has not yet completed GTT or baseline preE labs. She is taking vitamins. Unsure on plans. Reviewed PMH, social hx, family hx, surgical hx, ob hx with patient. No nausea/vomiting, cramping, or bleeding. Discussed Qnatal and Quad screen. Reviewed current medications with patient. Last pap smear 2022 normal [place] Depression Scale: No data recorded [place] suicide question and score: Score of 3 = Yes, quite often. Score of 2 = Sometimes. 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 Tobacco Use Smoking status: Former Packs/day: 0.25 Years: 9.00 Pack years: 2.25 Types: Cigarettes Quit date: 09/28/2022 Years since quittin.1 Smokeless tobacco: Never Substance and Sexual Activity Alcohol use: Not Currently Drug use: Never Sexual activity: Yes Partners: Male Social Determinants of Health Food Insecurity: No Food Insecurity Worried About Running Out of Food in the Last Year: Never true Ran Out of Food in the Last Year: Never true Past Surgical History: Procedure Laterality Date DENTAL SURGERY PROCEDURE NEC wisdom teeth Current Outpatient Medications Medication Sig Dispense Refill 28-0.8 MG Oral Tablet Take by mouth. Aspirin 81 MG Oral Tablet Chewable Take 1 Tablet by mouth in the morning. 90 Tablet 3 No current facility-administered medications for this visit. Review of patient's allergies indicates: Allergen Reactions Cephalosporins Urticaria Nickel rash Family History Problem Relation Age of Onset No Known Problems Mother No Known Problems Father Colon cancer Grandmother (Maternal) Denies family history of genetic conditions in patient's and FOB's families. ROS: General: no fevers, chills CV: no chest pain, SOB GI: no constipation, diarrhea, nausea Breast: no masses, nipple discharge, tenderness : 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, unusual vaginal discharge, dysuria Psychological: no anxiety, depression, SI/HI PHYSICAL EXAM: Deferred, completed 10/2022 at outside facility ASSESSMENT/PLAN: High-risk in second trimester (Primary) - Aspirin 81 MG Oral Tablet Chewable; Take 1 Tablet by mouth in the morning. Obesity in , antepartum - PROTEIN/ CREATININE RATIO, URINE; Future; Expected date: 11/25/2022 - COMPREHENSIVE METABOLIC PANEL; Future; Expected date: 11/25/2022 - 50-G GESTATIONAL GLUCOSE, 1 HOUR; Future; Expected date: 11/25/2022 Follow Up: Return in about 4 weeks (around 12/23/2022) for rpn. | For: rpn | Check-out note: Lab today - Discussed timing of routine OB care. Oriented to practice and given contact phone #. Discussed call schedule. - Offered genetic screening and explained that screening does not provide a definitive diagnosis. Patient encouraged to check her insurance coverage and notify office if she desires testing. - Recommended daily vitamin. - Discussed GTT, preE labs, baby ASA - Discussed labs as ordered and instructed patient to present to lab following appointment. - RTO in 4 weeks for DEBI LLOYD with concern RUFINA Aguero documented in this encounter Plan of Treatment Upcoming Encounters Date Type Specialty Care Team Description 11/25/2022 Laboratory Laboratory [facility] [address] [place] [address] Arrived 12/23/2022 Office Visit Gynecology Obstetrics Yenny Farrell CRNP [address] [place] [address] Pending Results Name Type Priority Associated Diagnoses Date /Time PROTEIN/ CREATININE RATIO, URINE Lab Routine Obesity in , antepartum 11/25/2022 9:49 AM EDT Scheduled Orders Name Type Priority Associated Diagnoses Orde r Schedule PROTEIN/ CREATININE RATIO, URINE Lab Routine Obesity in , antepartum Expected: 11/25/2022 (Approximate), Expires: 11/26/2023 COMPREHENSIVE METABOLIC PANEL Lab Routine Obesity in , antepartum Expected: 11/25/2022 (Approximate), Expires: 11/26/2023 50-G GESTATIONAL GLUCOSE, 1 HOUR Lab Routine Obesity in , antepartum Expected: 11/25/2022 (Approximate), Expires: 11/26/2023 Health Maintenance Due Date Last Done Comments Hepatitis B (1 of 3 - 3-dose series) 1996 GARDASIL-HPV IMMUNIZATION SERIES (1 - 2-dose series) 12/11/2007 Depression Screening, Annual for Pts 12 and Over 2008 Hepatitis C Screening 2014 Pap Smear 2017 COVID-19 Vaccine (3 - Pfizer series) 08/10/2020 06/15/2020, 05/25/2020 Influenza Vaccine (FLU shot) (#1) [...] as of this encounter Visit Diagnoses Diagnosis High-risk in second trimester- Primary Obesity in , antepartum Obesity complicating , childbirth, or the puerperium, antepartum condition or complication documented in this encounter
--- OUTSIDE RECORDS SUMMARY | 2023-05-17 08:12 | External Medical Summary ---
Author Name Unknown Address Unknown Organization [id number]:[facility] [address] [place] [address] Laboratory Report Ordering Provider Test Date Status TODD PATTERSON 11/25/2022 10:50:48 Final Observation Date Value Abnormality Reference (Units ) Status BUN 11/25/2022 10:50:48 6 6-20 (mg/dL) Final Creatinine 11/25/2022 10:50:48 0.5 0.5-1.0 (mg/dL) Final Glomerular filtration rate/1.73 sq M.predicted [Volume Rate/Area] in Serum, Plasma or Blood by Creatinine-based formula (CKD-EPI) 11/25/2022 10:50:48 >90 >=60 (mL/min) Final eGFR is calculated based on the CKD-EPI 2020 equation SODIUM 11/25/2022 10:50:48 138 135-146 (m mol/L) Final Potassium 11/25/2022 10:50:48 4.1 3.5-5.1 (m mol/L) Final Cl 11/25/2022 10:50:48 103 98-107 (mm ol/L) Final CO2 11/25/2022 10:50:48 22 22-32 (mmo l/L) Final Anion gap 11/25/2022 10:50:48 13 7-15 (mmol /L) Final Glucose 11/25/2022 10:50:48 123 Above high normal 70 -120 (mg/dL) Final Albumin 11/25/2022 10:50:48 3.8 3.8-5.0 (g /dL) Final AST (Aspartate aminotransferase) 11/25/2022 10:50:48 19 10-35 (U/L) Fin al Alk Phos 11/25/2022 10:50:48 79 35-130 (U/ L) Final Bilirubin, Total 11/25/2022 10:50:48 0.2 <=1 .2 (mg/dL) Final Calcium 11/25/2022 10:50:48 9.3 8.4-10.2 ( mg/dL) Final Protein 11/25/2022 10:50:48 6.2 6.0-8.3 (g /dL) Final ALT (Alanine aminotransferase) 11/25/2022 10:50:48 22 10-35 (U/L) Ayaz martinez Performing Location [facility] [place] [address] [facility] [place] [address]
--- OUTSIDE RECORDS SUMMARY | 2023-05-17 08:12 | External Medical Summary ---
Author Name Unknown Address Unknown Organization [id number]:[facility] - [address] [place] [address] Laboratory Report Ordering Provider Test Date Status TODD PATTERSON 11/25/2022 09:49:00 Final Normal: <150 mg/ g creatinine
High: 150-500 mg/g creatinine
Very High: >500 mg/g creatinine
Nephrotic: >3000 mg/g creatinine Observation Date Value Abnormality Reference (Units ) Status Protein/Creatinine [Ratio] in Urine 11/25/2022 09:49:00 59 <150 (mg/g ) Final Protein, Urine 11/25/2022 09:49:00 7 (mg/dL) Final Creatinine, Urine 11/25/2022 09:49:00 119 (mg/dL) Final Performing Location [facility] - [address] [place] [address]
--- OUTSIDE RECORDS SUMMARY | 2023-05-17 08:12 | External Medical Summary | Summary of Care ---
Author Name Unknown Organization [facility] Address [address] [place] [address] Phone [phone] Care Team Providers Care Ironer Hand Name Role Phone Unavailable Primary Care Provider Unavailabl e Reason for Visit * Reason Onset Date Comments Test Results 01/07/2023 Encounter Details Date Type Department Care Team Description 01/07/2023 Telephone Gynecology/Obstetrics [facility] [address] [place] [address] Yenny Farrell CRNP [address] [place] [address] Test Results Allergies Active Allergy Reactions Severity Noted Date Comments Cephalosporins 03/27/2014 Urticaria Nickel 03/27/2014 rash documented as of this encounter (statuses as of 01/08/2023) Medications Medication Sig Dispensed Refills Start Date End Date Status 28-0.8 MG Oral Tablet Take by mouth. 0 Active Aspirin 81 MG Oral Tablet ChewableIndications:H igh-risk in second trimester Take 1 Tablet by mouth in the morning. 90 Tablet 3 11/25/2022 Active documented as of this encounter (statuses as of 01/08/2023) Active Problems Problem Noted Date Low-lying placenta 01/07/2023 Overview: Noted on anatomy scan. Repeat u/s around 32 wks. Supervision of high-risk , unsp ecified trimester 11/20/2022 Overview: Initiated care with [facility], records scanned. A+, neg Ab screen Rubella immune RPR non-reactive Hep B non-reactive Hep C non-reactive HIV non-reactive Gc/Ct on 10/14/22 neg/neg Pap 07/2022 neg Urine culture neg CORY 05/22/23 based on LMP of 08/15/22 U/A on 10/19/22: 10w0d BP elevated /7 at 10w6d: 149/89 Obesity in , antepartum 023 Overview: Class 3 RX baby ASA; growth [...] as of this encounter (statuses as of 01/08/2023) Social History Tobacco Use Types Packs/Day Years [...] got money to buy more. Never true 01/06/2023 Within the past 12 months, t he food you bought just didn't last and you didn't have money to get more. Never true 01/06/2023 Estimated Date of Delivery Comme nts Yes 05/22/2023 Based on last me nstrual period of 08/15/2022 (Approximate) Sex Assigned at Date Recorded Female 11/02/2022 1:07 PM E DT Job Start Date Occupation Industry Not on file Not on file Not on file documented as of this encounter Miscellaneous Notes * Telephone Encounter - Bernie Hernandez LPN - 01/07/2023 12:48 PM EDT Patient notified. Please schedule 2 week follow up missed anatomy. * Telephone Encounter - RUFINA Gallegos - 01/07/2023 12:36 PM EDT Will need additional imaging following anatomy scan; please notify pt and assist in scheduling in about 2 weeks. Her anatomy scan showed a low-lying placenta - it is close to the opening of the cervix. We will recheck this with an ultrasound around 32 weeks, as many times they move away. She needs to call our office if she develops any vaginal bleeding or severe cramping. RUFINA Aguero documented in this encounter Plan of Treatment Upcoming Encounters Date Type Specialty Care Team Description 01/20/2023 Imaging Radiology 01/20/2023 Office Visit Gynecology Obstetrics Genny Ann CRNP [address] [place] [address] 03/08/2023 Office Visit Otolaryngology Shirlene Lanier PA-C [address] [place] [address] Scheduled Orders Name Type Priority Associated Diagnoses Orde r Schedule US PREG LIMITED 1 OR MORE FETUSES Medical Imaging Routine Encounter for follow-up ultrasound of anatomy Supervision of high-risk , unspecified trimester Expected: 01/21/2023 (Approximate), Expires: 02/07/2024 Health Maintenance Due Date Last Done Comments [...] as of this encounter Visit Diagnoses Diagnosis Encounter for follow-up ultrasound of anatomy- Primary Supervision of high-risk , unspecified trimester documented in this encounter
--- OUTSIDE RECORDS SUMMARY | 2023-05-17 08:12 | External Medical Summary | Summary of Care ---
Author Name Unknown Organization [facility] Address [address] [place] [address] Phone [phone] Care Team Providers Care Equipment Lead Name Role Phone Unavailable Primary Care Provider Unavailabl e Encounter Details Date Type Department Care Team Description 12/03/2022 Hospital Encounter Radiology Film File [address] [place], [place] [id number] Arrived Allergies Active Allergy Reactions Severity Noted Date Comments Cephalosporins 03/27/2014 Urticaria Nickel 03/27/2014 rash documented as of this encounter (statuses as of 12/05/2022) Medications Medication Sig Dispensed Refills Start Date End Date Status 28-0.8 MG Oral Tablet Take by mouth. 0 Active Aspirin 81 MG Oral Tablet ChewableIndications:H igh-risk in second trimester Take 1 Tablet by mouth in the morning. 90 Tablet 3 11/25/2022 Active documented as of this encounter (statuses as of 12/05/2022) Active Problems Problem Noted Date Supervision of high-risk , unsp ecified trimester 11/20/2022 Overview: [facility]iated care [facility] [...] as of this encounter (statuses as of 12/05/2022) Social History Tobacco Use Types Packs/Day Years [...] Encounters Date Type Specialty Care Team Description 12/23/2022 Office Visit Gynecology Obstetrics Backer, RUFINA Bowser [address] [place] [address] Health Maintenance Due Date Last Done Comments [...] Procedure Name Priority Date/Time Associated Diagnosis Comments RADIOLOGY EXAM - CT (IMAGES ONLY, NO REPORT) Routine 12/03/2022 4:35 PM EDT documented in this encounter Results * RADIOLOGY EXAM - CT (IMAGES ONLY, NO REPORT) (12/03/2022 4:35 PM EDT) 12/03/2022 4:33 PM EDT Narrative Scheduling, Silent - 12/04/2022 7:48 PM EDT This is an imaging study not interpreted or resulted by a [facility] or [facility] [employer] contracted radiologist. Elva Ames MD RAD CT documented in this encounter
--- OUTSIDE RECORDS SUMMARY | 2023-05-17 08:12 | External Medical Summary | Summary of Care ---
Author Name Unknown Organization [facility] Address [address] [place] [address] Phone [phone] Care Team Providers Care Bodily Injury Adjuster Name Role Phone Unavailable Primary Care Provider Unavailabl e Reason for Visit * Reason Comments Return Visit Encounter Details Date Type Department Care Team Description 12/23/2022 Office Visit Gynecology/Obstetrics [facility] [address] [place] [address] Yenny Farrell CRNP [address] [place] [address] Supervision of high-risk , unspecified trimester*; Obesity in , antepartum Allergies Active Allergy Reactions Severity Noted Date Comments Cephalosporins 03/27/2014 Urticaria Nickel 03/27/2014 rash documented as of this encounter (statuses as of 12/23/2022) Medications Medication Sig Dispensed Refills Start Date End Date Status 28-0.8 MG Oral Tablet Take by mouth. 0 Active Aspirin 81 MG Oral Tablet ChewableIndications:H igh-risk in second trimester Take 1 Tablet by mouth in the morning. 90 Tablet 3 11/25/2022 Active documented as of this encounter (statuses as of 12/23/2022) Active Problems Problem Noted Date Supervision of high-risk , unsp ecified trimester 11/20/2022 Overview: [facility] [...] as of this encounter (statuses as of 12/23/2022) Social History Tobacco Use Types Packs/Day Years [...] got money to buy more. Never true 12/09/2022 Within the past 12 months, t he food you bought just didn't last and you didn't have money to get more. Never true 12/09/2022 Estimated Date of Delivery Comme nts Yes 05/22/2023 Based on last me nstrual period of 08/15/2022 (Approximate) Sex Assigned at Date Recorded Female 11/02/2022 1:07 PM E DT Job Start Date Occupation Industry Not on file Not on file Not on file documented as of this encounter Last Filed Vital Signs Vital Sign Reading Time Taken Comments Blood Pressure 104/68 12/23/2022 8:41 AM EDT Pulse - - Temperature - - Respiratory Rate - - Oxygen Saturation - - Inhaled Oxygen Concentration - - Weight 108.4 kg (239 lb) 12/23/2022 8:41 AM EDT Height - - Body Mass Index 43.71 11/25/2022 9:23 AM EDT documented in this encounter Progress Notes * RUFINA Gallegos - 12/23/2022 8:43 AM EDT + movement. Denies cramping, bleeding. Will schedule anatomy u/s. Declines genetic screening. RUFINA Aguero * Ameena Linares LPN - 12/23/2022 8:41 AM EDT 18w4d Denies vaginal bleeding/rom + movement No new concerns documented in this encounter Plan of Treatment Upcoming Encounters Date Type Specialty Care Team Description 01/07/2023 Imaging Radiology 01/20/2023 Office Visit Gynecology Obstetrics Genny Ann CRNP [address] [place] [address] 03/08/2023 Office Visit Otolaryngology Shirlene Lanier PA-C [address] [place] [address] Scheduled Orders Name Type Priority Associated Diagnoses Orde r Schedule US PREG SINGLE/1ST GEST, 14 WEEKS OR LATER Medical Imaging Routine Supervision of high-risk , unspecified trimester Expected: 01/06/2023 (Approximate), Expires: 01/24/2024 Health Maintenance Due Date Last Done Comments [...]
--- OUTSIDE RECORDS SUMMARY | 2023-05-17 08:12 | External Medical Summary ---
Author Name Unknown Address Unknown Organization K01:[facility] - [address] [facility] [place] [address] Laboratory Report Ordering Provider Test Date Status TODD PATTERSON 03/03/2023 09:13:55 Final Observation Date Value Abnormality Reference (Units ) Status SYNC LEUKOCYTES IN BLOOD BY AUTOMATED COUNT 03/03/2023 09:13:55 14.02 Above high normal 4.00-10.80 (K/uL) Final Segs 03/03/2023 09:13:55 82.6 Above high normal 40.0-75.0 (%) Final Lymphs % 03/03/2023 09:13:55 12.4 Below low normal 18.0-42.0 (%) Final Monos 03/03/2023 09:13:55 2.9 1.0-11.0 (%) Final Eosinophils 03/03/2023 09:13:55 1.0 0.0-6.0 (%) Final Basos 03/03/2023 09:13:55 0.2 0.0-2.0 (%) Final Immature Granulocyte, Percent 03/03/2023 09:13:55 0.9 0.0-2.0 (%) Final Absolute Segs 03/03/2023 09:13:55 11.58 Above high normal 1.80-7.70 (K/uL) Final Lymphs, absolute 03/03/2023 09:13:55 1.74 1.00-4.80 (K/ul) Final Monos, Abs 03/03/2023 09:13:55 0.41 0.00-1.10 (K/uL) Final Eos, Abs 03/03/2023 09:13:55 0.14 0.00-0.70 (K/uL) Final Basos, Abs 03/03/2023 09:13:55 0.03 0.00-0.20 (K/uL) Final Immature Granulocytes, Number 03/03/2023 09:13:55 0.12 0.00-0.20 (K/uL) Final Performing Location [facility] - [facility] [address] [facility] [address]
--- OUTSIDE RECORDS SUMMARY | 2023-05-17 08:12 | External Medical Summary | Summary of Care ---
Author Name Unknown Organization [facility] Address [address] [place] [address] Phone [phone] Care Team Providers Care Center Mgr Name Role Phone Unavailable Primary Care Provider Unavailabl e Reason for Visit * Reason Comments Outpatient Testing Encounter Details Date Type Department Care Team Description 11/25/2022 Laboratory Laboratory, [facility] [address] [place] [phone] [employer] [address] [place] [address] Obesity in , antepartum Allergies Active Allergy [...] ecified trimester 11/20/2022 Overview: Initiated care with [facility] [...] Gynecology Obstetrics Backer, RUFINA Bowser [address] [place] [address] Pending Results Name Type Priority Associated Diagnoses Date /Time COMPREHENSIVE METABOLIC PANEL Lab Routine Obesity in , antepartum 11/25/2022 10:50 AM EDT 50-G GESTATIONAL GLUCOSE, 1 HOUR Lab Routine Obesity in , antepartum 11/25/2022 10:50 AM EDT Health Maintenance Due Date Last Done Comments [...] encounter Visit Diagnoses Diagnosis Obesity in , antepartum Obesity complicating , childbirth, or the puerperium, antepartum condition or complication documented in this encounter
--- OUTSIDE RECORDS SUMMARY | 2023-05-17 08:12 | External Medical Summary | Summary of Care ---
Author Name Unknown Organization [facility] Address [address] [place] [address] Phone [phone] Care Team Providers Care Finished Garment Inspector Name Role Phone Unavailable Primary Care Provider Unavailabl e Encounter Details Date Type Department Care Team Description 12/03/2022 Orders Only Otolaryngology/Head & Neck/Facial Plastic Surgery [address], [place] [phone] Elva Ames MD [address], [place] [id number] Allergies Active Allergy Reactions Severity Noted Date Comments Cephalosporins 03/27/2014 Urticaria Nickel 03/27/2014 rash documented as of this encounter (statuses as of 12/04/2022) Medications Medication Sig Dispensed Refills Start Date End Date Status 28-0.8 MG Oral Tablet Take by mouth. 0 Active Aspirin 81 MG Oral Tablet ChewableIndications:H igh-risk in second trimester Take 1 Tablet by mouth in the morning. 90 Tablet 3 11/25/2022 Active documented as of this encounter (statuses as of 12/04/2022) Active Problems Problem Noted Date Supervision of high-risk , unsp ecified trimester 11/20/2022 Overview: Initiated care with [facility], records scanned. A+, neg Ab screen Rubella immune RPR non-reactive Hep B non-reactive Hep C non-reactive HIV non-reactive Gc/Ct on 6/21/23 neg/neg Pap 07/2022 neg Urine culture neg [...] as of this encounter (statuses as of 12/04/2022) Social History Tobacco Use Types Packs/Day Years [...] Description 12/23/2022 Office Visit Gynecology Obstetrics Backer, RUIFNA Bowser [address] [place] [address] Health Maintenance Due Date Last Done Comments [...] study not interpreted or resulted by a [facility] or [facility] contracted radiologist. Elva Ames MD RAD CT documented in this encounter
--- OUTSIDE RECORDS SUMMARY | 2023-05-17 08:12 | External Medical Summary ---
Author Name Unknown Address Unknown Organization [facility] [address] [place] [id number] Laboratory Report Ordering Provider Test Date Status TODD PATTERSON 11/25/2022 10:50:48 Final Observation Date Value Abnormality Reference (Units ) Status Glucose [Moles/volume] in Serum or Plasma --1 hour post 50 g glucose PO 11/25/2022 10:50:48 123 70-129 (mg/dL) Final Performing Location [facility] [address] [place] [id number]
--- OUTSIDE RECORDS SUMMARY | 2023-05-17 08:12 | External Medical Summary | Summary of Care ---
Author Name Unknown Organization [facility] Address [address] [place] [address] Phone [phone] Care Team Providers Care Stack Attendant Name Role Phone Unavailable Primary Care Provider Unavailabl e Reason for Visit * Reason Comments Return Visit Encounter Details Date Type Department Care Team Description 01/20/2023 Office Visit Gynecology/Obstetrics [facility] [address] [place] [address] Genny Ann CRNP [address] [place] [id number] Supervision of high-risk , unspecified trimester*; Obesity in , antepartum; Low-lying placenta; Other specified related conditions, third trimester Allergies Active Allergy Reactions Severity Noted Date Comments Cephalosporins 03/27/2014 Urticaria Nickel 03/27/2014 rash documented as of this encounter (statuses as of 01/20/2023) Medications Medication Sig Dispensed Refills Start Date End Date Status 28-0.8 MG Oral Tablet Take by mouth. 0 Active Aspirin 81 MG Oral Tablet ChewableIndications:H igh-risk in second trimester Take 1 Tablet by mouth in the morning. 90 Tablet 3 11/25/2022 Active documented as of this encounter (statuses as of 01/20/2023) Active Problems Problem Noted Date Low-lying placenta 01/07/2023 Overview: Noted on anatomy scan. Repeat u/s around 28 wks. Supervision of high-risk , unsp ecified [...] as of this encounter (statuses as of 01/20/2023) Social History Tobacco Use Types Packs/Day Years [...] Sign Reading Time Taken Comments Blood Pressure 120/70 01/20/2023 9:58 AM EDT Pulse - - Temperature - - Respiratory Rate - - Oxygen Saturation - - Inhaled Oxygen Concentration - - Weight 109.3 kg (241 lb) 01/20/2023 9:58 AM EDT Height 157.5 cm (5' 2") 01/20/2023 9:58 AM EDT Body Mass Index 44.08 01/20/2023 9:58 AM EDT documented in this encounter Progress Notes * RUFINA Singh - 01/20/2023 10:09 AM EDT 22w4d No concerns. Baby is active. No bleeding or LOF. Some ankle swelling. U/s today for missed anatomy, report pending. +cardiac activity on u/s. Placenta still low lying. Will need repeat u/s around 28w. RUFINA Singh * Rachele Méndez LPN - 01/20/2023 10:01 AM EDT 22w4d Pt denies any concerns. documented in this encounter Plan of Treatment Upcoming Encounters Date Type Specialty Care Team Description 02/17/2023 Office Visit Gynecology Obstetrics Backer, RUFINA Bowser [address] [place] [id number] 03/08/2023 Office Visit Otolaryngology Shirlene Lanier PA-C [address] [place] [id number] Scheduled Orders Name Type Priority Associated Diagnoses Orde r Schedule US PELVIS TRANS-VAGINAL OB Medical Imaging Routine Low-lying placenta Other specified related conditions, third trimester Expected: 03/03/2023 (Approximate), Expires: 02/20/2024 Health Maintenance Due Date Last Done Comments [...] previa, unspecified as to episode of care Other specified related conditions, third trimester documented in this encounter
[2023-05-17 08:41] LABS: Hematocrit (blood only) 33.7 % (37.0-47.0); Hemoglobin 11.6 g/dl (12.0-16.0); Mean Corpuscular Hemoglobin 31.2 pg (25.0-34.0); Mean Corpuscular Hgb Conc 34.4 g/dL (32.0-36.0); Mean Corpuscular Volume 90.6 fL (80.0-100.0); Mean Platelet Volume 9.8 fL (9.4-12.4); Platelet Count 311 K/uL (130-400); RDW Coefficient of Variation 13.3 % (11.5-14.5); Red Blood Count 3.72 M/uL (4.20-5.40); White Blood Count 14.78 K/ul (4.8-10.8)
--- NOTE | 2023-05-17 09:29 | History & Physical Report ---
Date of Service May 17, 2023 Assessment & Plan (1) Obesity affecting in third trimester, antepartum: (2) Elective induction of labor planned: Plan: 27-year-old G1, P0 at 39 weeks and 1 day gestation presenting today for induction of labor at term for obesity, Vital signs stable afebrile, except elevated first blood pressure, will repeat within normal limits, heart rate category 1 GBS negative, Cervix unfavorable, Plan to admit, monitor, labs, Cervidil for cervical ripening, All questions were answered. Admission and Anticipated Discharge Date Admission Date: May 17, 2023 History of Present Illness Primary Care Provider: Froy Carpenter Patient is a 27-year-old G1, P0 at 39 weeks and 1 days gestation who was scheduled for induction of labor at term for obesity during . She has no complaints. She denies contractions, leakage of fluid, vaginal bleed ing, fever chills, headaches, change in her vision. She reports good movements. Her has been uncomplicated except of the obesity, growth scan was within normal limits 2 weeks ago, She is a smoker, smokes half pack of cigarettes per day. GBS negative. Allergies Allergy/AdvReac Type Severity Reaction Status Date / Time nickel Allergy Intermediate Rash Verified 12/06/22 13:21 Cephalosporins Allergy Unknown CAN'T Verified 12/06/22 13:21 REMEMBER vancomycin AdvReac Intermediate Rash Verified 12/06/22 16:28 Home Medications Medication Instructions Recorded Confirmed Type aspirin 81 mg chewable tablet 81 mg PO DAILY 12/03/22 12/06/22 History vit no.133-ferrous 1 tab PO DAILY 12/03/22 12/06/22 History fumarate 28 mg-folic acid 800 mcg tablet () Patient History Medical History Candiduria Hypokalemia Second trimester Otitis media of right ear Otitis externa of right ear Social History Smoking Status: Current every day smoker Tobacco Type: Cigarettes Second Hand Exposure: Yes; Do You Dip or Chew Tobacco: No; Tobacco Cessation Education Requested by Patient: No Hx Alcohol Use: No Hx Substance Use: No Preferred Language: Qatari Communication Ability: Effective Press Set Up Required: No Beliefs That Will Affect Care: None marital status: Single Current Living Situation: Significant Other Current Living Situation Comment: [place] Other Information That Helps Us Care for You: No Feels Safe at Home: Yes Safety Concerns: Feels Safe At This Time Assistive Devices: None [employer] History Denies any history of STDs, denies history of chlamydia, gonorrhea, herpes. Review of Systems as per Subjective / HPI Physical Exam Constitutional: WD/WN, vitals as above well developed, well nourished, + obese and comfortable Genitourinary: normal external appearance OB Exam Abdomen: + vertex Manual OB Exam: + cervical dilation 1 cm, + cervical effacement 50% and + station -2 OB Exam Monitor Tracing: + external uterine monitor used and + category I Results & Data Vital Signs (Past 12 Hours) Vital Signs Temp Pulse Resp BP 05/17/23 08:03 36.8 C 16 05/17/23 08:01 88 142/86 H
[2023-05-17 09:58] LABS: Alanine Aminotransferase 13 U/L (7-52); Albumin Globulin Ratio 1.2 (0.9-2); Albumin Level 3.7 gm/dl (3.4-5.0); Alkaline Phosphatase 120 U/L (34-104); Anion Gap 8 (3-11); Aspartate Aminotransferase 14 U/L (13-39); BUN Creatinine Ratio 22.9 (10-20); Bilirubin,Total 0.3 mg/dl (0.2-1.0); Blood Urea Nitrogen 11 mg/dl (6-23); Calcium 9.5 mg/dl (8.6-10.3); Carbon Dioxide 21 mmol/L (21-32); Chloride 107 mmol/L (98-107); Creatinine Clr Calc Pharmacy 215.5 ml/min; Est GFR (African American) > 150.0 ml/min; Est GFR (Non-African American) 135.4 ml/min; Glucose 83 mg/dl (70-99(Fasting)); Potassium 4.1 mmol/L (3.5-5.1); Sodium 136 mmol/L (136-145); Total Protein 6.7 gm/dl (6.0-8.3)
[2023-05-17 10:36] LABS: Creatinine Urine Random 65.7 mg/dl; Protein Creatinine Ratio Urine 0.1 (0-0.2); Total Protein Urine Random 8.8 mg/dl (0-11.9)
[2023-05-17 10:59] LABS: Basophils # (auto) 0.05 K/uL (0.00-0.20); Basophils % (auto) 0.3 %; Eosinophils # (auto) 0.11 K/uL (0.00-0.50); Eosinophils % (auto) 0.8 %; Immature Granulocytes # (auto) 0.11 K/uL (0.01-0.20); Immature Granulocytes % (auto) 0.8 %; Lymphocytes # (auto) 1.95 K/uL (1.20-3.40); Lymphocytes % (auto) 13.4 %; Monocytes # (auto) 0.48 K/uL (0.11-0.59); Monocytes % (auto) 3.3 %; Neutrophils # (auto) 11.88 K/uL (1.40-6.50); Neutrophils % (auto) 81.4 %
--- NOTE | 2023-05-17 21:24 | Obstetrical Progress Note ---
Date of Service May 17, 2023 Assessment & Plan Admission and Anticipated Discharge Date Admission Date: May 17, 2023 Subjective Patient is reevaluated. She has been feeling crampy and back horowitz, 09/02 No LOF/VB VE' Cervidil is removed. Cervix 2/ 50%/ -2, bulging bag FHR categ I [place]: ctxs 3-4 min Plan to observe for 1 hour ad start PO Cytotec per contraction pattern Results & Data Vital Signs (Past 12 Hours) Vital Signs Temp Pulse Resp BP 05/17/23 20:35 68 20 137/75 05/17/23 19:38 80 145/81 H 05/17/23 19:21 80 153/86 H 05/17/23 19:06 36.9 C 76 22 141/85 H 05/17/23 15:00 16 05/17/23 15:00 36.7 C 16 05/17/23 14:58 81 131/74 05/17/23 12:18 36.7 C 75 16 136/81 05/17/23 11:11 86 142/86 H 05/17/23 10:51 87 126/77 05/17/23 10:31 76 136/86 05/17/23 10:11 78 142/94 H 05/17/23 09:51 75 126/76 05/17/23 09:29 87 153/82 H
[2023-05-17] MEDS: miSOPROStoL 50 MCG TAB PO SCH (23:07)
[2023-05-18] MEDS: BUTORPHANOL TARTRATE 1 MG/ML VIAL IV PRN ×2 (03:51→05:34)
[2023-05-18] MEDS: miSOPROStoL 50 MCG TAB PO SCH ×2 (03:55)
[2023-05-18] MEDS ORDERED: fentaNYL citrate PF 100 MCG/2 ML VIAL ONE (04:26)
[2023-05-18] MEDS ORDERED: fentANYL 2 MCG/ML BUPIVacaine 0.125%-NSS 100ML BAG ONE (04:26)
[2023-05-18] MEDS ORDERED: ePHEDrine sulfate 50 MG/ML AMP ONE (04:26)
[2023-05-18] MEDS ORDERED: SODIUM CHLORIDE 0.9% PF INJ 10 ML VIAL ONE (04:26)
[2023-05-18] MEDS ORDERED: LIDOCAINE 2%/EPINEPHRINE 1:200,000 20 ML PF ONE (04:27)
[2023-05-18] MEDS ORDERED: BUPIVACAINE 0.25% PF 30 ML VIAL ONE (04:27)
[2023-05-18] MEDS ORDERED: ROPIVACAINE 0.5% PF 5 MG/ML 20 ML VIAL EPI PRN (05:07)
[2023-05-18] MEDS ORDERED: ePHEDrine sulfate 50 MG/ML AMP IV PRN (05:07)
[2023-05-18] MEDS ORDERED: NALBUPHINE HCL 5 MG in SYRINGE 0 ML IV PRN (05:07)
[2023-05-18] MEDS ORDERED: SODIUM CHLORIDE 0.9% PF INJ 10 ML VIAL EPI PRN (05:07)
[2023-05-18] MEDS ORDERED: BUPIVACAINE 0.25% PF 30 ML VIAL EPI STA (05:07)
[2023-05-18] MEDS ORDERED: BUPIVACAINE 0.25% PF 30 ML VIAL EPI PRN (05:07)
[2023-05-18] MEDS ORDERED: fentaNYL citrate PF 100 MCG/2 ML VIAL EPI PRN (05:07)
[2023-05-18] MEDS ORDERED: LIDOCAINE 2% MPF LOCAL 5 ML VIAL EPI PRN (05:07)
[2023-05-18] MEDS ORDERED: fentANYL 2 MCG/ML BUPIVacaine 0.125%-NSS 100ML BAG EPI PRN (05:07)
[2023-05-18] MEDS ORDERED: NALOXONE HCL 1 MG in SODIUM CHLORIDE 0.9% 1,000 ML IV PRN (05:07)
[2023-05-18] MEDS ORDERED: NALOXONE HCL 0.4 MG/1 ML VIAL/CARP IV PRN (05:07)
[2023-05-18] MEDS ORDERED: LIDOCAINE 2%/EPINEPHRINE 1:200,000 20 ML PF EPI STA (05:07)
[2023-05-18] MEDS ORDERED: SODIUM CHLORIDE 0.9% PF INJ 10 ML VIAL EPI STA (05:07)
[2023-05-18] MEDS ORDERED: ONDANSETRON INJ 2 MG/ML 2 ML VIAL IV PRN (05:07)
[2023-05-18] MEDS ORDERED: diphenhydrAMINE 50 MG/ML VIAL IV PRN (05:07)
[2023-05-18] MEDS ORDERED: fentaNYL citrate PF 100 MCG/2 ML VIAL EPI STA (05:07)
--- NOTE | 2023-05-18 05:09 | Anesthesiology Consultation ---
Date of Service May 18, 2023 Assessment & Plan Chart Review Chart Review: Patient NOT seen in Pre Admission Testing and Acceptable Risk for Labor Epidural Consults Requested none ASA ASA2 Proposed Anesthesia Anesthesia Type: Labor Epidural Risk / Benefits Reviewed With: PT / POA / Parent / Guardian, Accepts Plan and Informed Consent Obtained History Height/Weight Height: 5 ft 2 in Weight: 117.027 kg Allergies Allergy/AdvReac Type Severity Reaction Status Date / Time nickel Allergy Intermediate Rash Verified 12/06/22 13:21 Cephalosporins Allergy Unknown CAN'T Verified 12/06/22 13:21 REMEMBER vancomycin AdvReac Intermediate Rash Verified 12/06/22 16:28 Medications Home Medications Medication Instructions Recorded Confirmed Last Taken aspirin 81 mg chewable tablet 81 mg PO DAILY 12/03/22 05/17/23 05/17/23 06:00 vit no.133-ferrous 1 tab PO DAILY 12/03/22 05/17/23 05/17/23 06:00 fumarate 28 mg-folic acid 800 mcg tablet () cyanocobalamin (B12)-cobamamide torsten sublingual 05/17/23 05/17/23 06:00 5,000 mcg-100 mcg sublingual lozenge (B12) Active Medications Generic Name Dose Route Start Last Admin Trade Name Freq PRN Reason Stop Dose Admin Butorphanol Tartrate 1 mg 05/17/23 09:25 05/18/23 03:51 Butorphanol Tartrate 1 Mg/Ml Vial IV 06/16/23 09:24 1 mg Q3HWA PRN Administration Pain Lactated Ringer's 1,000 mls @ 125 mls/hr 05/17/23 08:08 05/18/23 03:45 Lr IV 05/19/23 08:07 125 mls/hr .Q8H PRN Administration L&D Protocol Protocol Misoprostol 50 mcg 05/17/23 22:30 05/18/23 03:55 Misoprostol 50 Mcg Tab PO 06/16/23 22:29 Not Given Q4 MIN Past Medical History Medical History (Updated 05/17/23 @ 17:28 by Nancy Ocampo RN) Smoker Anemia Exercise / Class Metabolic Activity II 4-5 Yardwork/Stairs/Walk up hill Past Anesthesia History No Hx of Anesthesia Complications and No Family Hx of Anesthesia Complications History of PONV No Hx of PONV and No Hx of Motion Sickness Social History Smoking Status: Current every day smoker Do You Dip or Chew Tobacco: No Hx Alcohol Use: No Hx Substance Use: No Physical Exam Vital Signs Last Vital Signs Temp 36.9 C 05/18/23 03:22 Pulse 94 H 05/18/23 05:05 Resp 20 05/18/23 03:22 BP 137/70 05/18/23 03:22 Pulse Ox 100 05/18/23 05:05 ENMT Mouth: no dentition abnormality Thyromental Distance: > or= 3.5 Finger Breadths Mallampati Class: II Neck normal visual inspection Respiratory normal respiratory effort Auscultation: lungs clear to auscultation bilaterally Cardiovascular Rate/Rhythm: regular rate and regular rhythm Psychiatric Orientation: alert Testing Laboratory Results 05/17/23 08:18 05/17/23 09:19 Blood Type A Positive 05/17/23 08:18 Antibody Screen NEGATIVE 05/17/23 08:18
[2023-05-18] MEDS ORDERED: MINERAL OIL 30 ML UDC ONE (05:21)
[2023-05-18] MEDS: OXYTOCIN 30 UNITS/NSS 30 UNITS/500 ML BAG IV PRN ×2 (05:28→06:00)
[2023-05-18] MEDS: LIDOCAINE 1% LOCAL 20 ML VIAL INFIL PRN ×2 (05:38→06:09)
[2023-05-18] MEDS ORDERED: METHYLERGONOVINE MALEATE 0.2 MG/ML AMP ONE (06:04)
[2023-05-18] MEDS ORDERED: CLINDAMYCIN/D5W 900 MG/50 ML BAG IV ONE (06:14)
[2023-05-18] MEDS ORDERED: HYDROCORTISONE ACETATE 25 MG SUPP PR PRN (06:24)
[2023-05-18] MEDS ORDERED: oxyCODONE/ACETAMINOPHEN 5mg/325mg TAB PO PRN (06:24)
[2023-05-18] MEDS ORDERED: DIPHTHER/TETAN/PERTUS Vaccine (Tdap, Adol/Adult) 0.5mL IM ONE (06:24)
[2023-05-18] MEDS ORDERED: MEASLES, MUMPS & RUBELLA VIRUS VACCINE (MMR) VIAL SQ ONE (06:24)
[2023-05-18] MEDS ORDERED: OXYTOCIN 30 UNITS/NSS 30 UNITS/500 ML BAG IV PRN (06:24)
[2023-05-18] MEDS ORDERED: METHYLERGONOVINE MALEATE 0.2 MG/ML AMP IM ONE (06:24)
[2023-05-18] MEDS ORDERED: BENZOCAINE 20% SPRY 85 APPLN/85 GM CAN EXT PRN (06:24)
[2023-05-18] MEDS ORDERED: ACETAMINOPHEN 325 MG TAB PO PRN (06:24)
--- NOTE | 2023-05-18 06:34 | Delivery Summary ---
Vaginal Delivery Summary Date of Service May 18, 2023 Vaginal Delivery Summary Patient was admitted yesterday for IOL and received IV Cervidil and 1 dose of PO Cytotec. She went into active labor and asked for epidural. Unable to get it due quick progress to be fully dilated and desired to push. Pushed through 2 contractions and delivered the whole baby with last push. The baby was handed off to the mother. The cord was clampedx2 and cut at 1 minute. The vagina and perineum were checked and found to have 3rd degree perineal laceration. Rectal exam was done and confirmed 3rd degree. The gloves were changes. Lidocaine was used for LA. And the placenta was found to be in the vagina, delivered spontaneously as intact and complete. The uterus was explored and found to be empty. Rectal exam was repeated, Allis clamps were used to grasped sphincter muscles in the perineum. They were brought to the midline and repaired with 2-0 Vicryl with [id number] sutures x 3. Then the rectal exam was repeated and good sphincter tone and integrity noted, no sutures were felt. The gloves were changed. Vaginal retractor was used to examine the vagina. There was a sulcus tear on the left of midline vagina until the mid third of it. The corner of the laceration was placed with for suture with 2-0 Vicryl, then the rest of the vaginal mucosa was repaired with 2/0 vicryl on a continuous fashion. There was a smaller tear on the right sulcus which was also repaired with 2-0 Vicryl in a running fashion. Perineal body muscles were brought together in the midline with [id number] stitches. Lastly the skin was reapproximated on subcuticular fashion. Excellent hemostasis was achieved. Patient was given 900 mg of IV clindamycin for prophylaxis. EBL was 300 ml. The fundus was firm. The baby was a viable female , Apgars 8/9, the weight is pending The mother and the baby tolerated the procedure well. No complications happened and I was present during whole procedure.
[2023-05-18] MEDS ORDERED: Nursing to Pharmacy Communication SCH (07:45)
[2023-05-18] MEDS: DOCUSATE SODIUM 100 MG CAP PO SCH ×2 (09:10→20:18)
[2023-05-18] MEDS: FERROUS SULFATE 325 MG TAB PO SCH (09:10)
[2023-05-18] MEDS: PRENATAL VITAMIN 1 TAB PO SCH (09:10)
[2023-05-18] MEDS: IBUPROFEN 600 MG TAB PO PRN ×3 (09:11→18:50)
[2023-05-18] MEDS: AMOXICILLIN/CLAVULANATE 875 MG TAB PO SCH ×2 (09:11→17:57)
[2023-05-19] MEDS: IBUPROFEN 600 MG TAB PO PRN ×3 (00:44→08:39)
[2023-05-19 06:50] LABS: Hematocrit (blood only) 25.4 % (37.0-47.0); Hemoglobin 8.7 g/dl (12.0-16.0); Mean Corpuscular Hemoglobin 31.5 pg (25.0-34.0); Mean Corpuscular Hgb Conc 34.3 g/dL (32.0-36.0); Mean Platelet Volume 9.8 fL (9.4-12.4); Platelet Count 283 K/uL (130-400); RDW Coefficient of Variation 13.5 % (11.5-14.5); RDW Standard Deviation 45.5 fL (36.4-46.3); Red Blood Count 2.76 M/uL (4.20-5.40); White Blood Count 14.51 K/ul (4.8-10.8)
--- NOTE | 2023-05-19 08:34 | Obstetrical Progress Note ---
Date of Service May 19, 2023 Assessment & Plan Admission and Anticipated Discharge Date Admission Date: May 17, 2023 Subjective Patient is seen and examined. She feels well, no complaints. Desires d/c today Ambulating without dizziness Voiding without difficulty Tolerating regular diet with out N&V Bleeding is minimal No fever/ chills/ CP/ SOB/ N&V/ Leg pain Bottle feeding without problems Vital Signs Temp Pulse Resp BP O2 Del Method 05/19/23 04:15 36.5 C 98 H 20 139/87 Room Air 05/19/23 00:45 36.6 C 99 H 18 123/81 Room Air Lab Results 05/17/23 05/17/23 05/17/23 Range/Units 08:18 09:19 10:00 WBC 14.78 H (4.8-10.8) K/ul RBC 3.72 L (4.20-5.40) M/uL Hgb 11.6 L (12.0-16.0) g/dl Hct 33.7 L (37.0-47.0) % MCV 90.6 (80.0-100.0) fL MCH 31.2 (25.0-34.0) pg MCHC 34.4 (32.0-36.0) g/dL RDW Std Deviation 44.0 (36.4-46.3) fL RDW Coeff of Roz 13.3 (11.5-14.5) % Plt Count 311 (130-400) K/uL MPV 9.8 (9.4-12.4) fL Immature Gran % (Auto) 0.8 % Neut % (Auto) 81.4 % Lymph % (Auto) 13.4 % [place] % (Auto) 3.3 % Eos % (Auto) 0.8 % Baso % (Auto) 0.3 % Neut # (Auto) 11.88 H (1.40-6.50) K/uL Lymph # (Auto) 1.95 (1.20-3.40) K/uL [place] # (Auto) 0.48 (0.11-0.59) K/uL Eos # (Auto) 0.11 (0.00-0.50) K/uL Baso # (Auto) 0.05 (0.00-0.20) K/uL Immature Gran # (Auto) 0.11 (0.01-0.20) K/uL Sodium 136 (136-145) mmol/L Potassium 4.1 (3.5-5.1) mmol/L Chloride 107 (98-107) mmol/L Carbon Dioxide 21 (21-32) mmol/L Anion Gap 8 (3-11) BUN 11 (6-23) mg/dl Creatinine 0.48 L (0.6-1.2) mg/dl Est Cr Clr Drug Dosing 215.5 ml/min Est GFR ( Amer) > 150.0 ml/min Est GFR (Non-Af Amer) 135.4 ml/min BUN/Creatinine Ratio 22.9 H (10-20) Glucose 83 (70-99(Fasting)) mg/dl Calcium 9.5 (8.6-10.3) mg/dl Total Bilirubin 0.3 (0.2-1.0) mg/dl AST 14 (13-39) U/L ALT 13 (7-52) U/L Alkaline Phosphatase 120 H (34-104) U/L Total Protein 6.7 (6.0-8.3) gm/dl Albumin 3.7 (3.4-5.0) gm/dl Globulin 3.0 (2.5-4.0) gm/dl Albumin/Globulin Ratio 1.2 (0.9-2) Ur Random Creatinine 65.7 mg/dl U Random Total Protein 8.8 (0-11.9) mg/dl Protein/Creatinin Ratio 0.1 (0-0.2) Blood Type A Positive Antibody Screen NEGATIVE 05/19/23 Range/Units 05:45 WBC 14.51 H (4.8-10.8) K/ul RBC 2.76 L (4.20-5.40) M/uL Hgb 8.7 L D (12.0-16.0) g/dl Hct 25.4 L (37.0-47.0) % MCV 92.0 (80.0-100.0) fL MCH 31.5 (25.0-34.0) pg MCHC 34.3 (32.0-36.0) g/dL RDW Std Deviation 45.5 (36.4-46.3) fL RDW Coeff of Roz 13.5 (11.5-14.5) % Plt Count 283 (130-400) K/uL MPV 9.8 (9.4-12.4) fL Immature Gran % (Auto) % Neut % (Auto) % Lymph % (Auto) % [place] % (Auto) % Eos % (Auto) % Baso % (Auto) % Neut # (Auto) (1.40-6.50) K/uL Lymph # (Auto) (1.20-3.40) K/uL [place] # (Auto) (0.11-0.59) K/uL Eos # (Auto) (0.00-0.50) K/uL Baso # (Auto) (0.00-0.20) K/uL Immature Gran # (Auto) (0.01-0.20) K/uL Sodium (136-145) mmol/L Potassium (3.5-5.1) mmol/L Chloride (98-107) mmol/L Carbon Dioxide (21-32) mmol/L Anion Gap (3-11) BUN (6-23) mg/dl Creatinine (0.6-1.2) mg/dl Est Cr Clr Drug Dosing ml/min Est GFR ( Amer) ml/min Est GFR (Non-Af Amer) ml/min BUN/Creatinine Ratio (10-20) Glucose (70-99(Fasting)) mg/dl Calcium (8.6-10.3) mg/dl Total Bilirubin (0.2-1.0) mg/dl AST (13-39) U/L ALT (7-52) U/L Alkaline Phosphatase (34-104) U/L Total Protein (6.0-8.3) gm/dl Albumin (3.4-5.0) gm/dl Globulin (2.5-4.0) gm/dl Albumin/Globulin Ratio (0.9-2) Ur Random Creatinine mg/dl U Random Total Protein (0-11.9) mg/dl Protein/Creatinin Ratio (0-0.2) Blood Type Antibody Screen PE: General: Alert, orientedx3, NAD Abd: soft, NT, fundus firm, below Umbilicus Perineum intact, Lochia rubra minimal Ext; NT, no edema AP: 27 yo s/p , ppd# 1 VSS Afebrile doing well Anemic, asymptomatic, give IV Iron Continue routine care All questions were answered Discussed when to call D/C home per her request Results & Data Vital Signs (Past 12 Hours) Vital Signs Temp Pulse Resp BP O2 Del Method 05/19/23 04:15 36.5 C 98 H 20 139/87 Room Air 05/19/23 00:45 36.6 C 99 H 18 123/81 Room Air
[2023-05-19] MEDS: AMOXICILLIN/CLAVULANATE 875 MG TAB PO SCH (08:39)
[2023-05-19] MEDS: DOCUSATE SODIUM 100 MG CAP PO SCH (08:39)
[2023-05-19] MEDS: PRENATAL VITAMIN 1 TAB PO SCH (08:40)
[2023-05-19] MEDS: FERROUS SULFATE 325 MG TAB PO SCH (08:40)
[2023-05-19] MEDS ORDERED: IRON SUCROSE 200 MG in 0.9 % SODIUM CHLORIDE 100 ML IV ONE (08:45)
[2023-05-19] MEDS ORDERED: bisacodyL 5 MG TABEC PO SCH (20:00)
[2023-05-20] MEDS ORDERED: bisacodyL 10 MG SUPP PR PRN
== END 2023-05-19 12:50 | disposition home health service (06) | DRG 768 ==
LOC: 4S1 07:49 → 4E2 05-18 09:35

== ENCOUNTER 2024-06-13 07:24 | Inpatient (IN) ==
--- OUTSIDE RECORDS SUMMARY | 2024-06-13 07:41 | External Medical Summary | Summary of Care ---
Author Name Unknown Organization [facility] Address [address] [place] [address] Phone [phone] Care Team Providers Care Stiff Leg Operator Name Role Phone Unavailable Primary Care Provider Unavailabl e Reason for Visit * Reason Comments Return Visit Non Stress Test Encounter Details Date Type Department Care Team (Late st Contact Info) Description 06/07/2024 10:00 AM EST Office Visit Gynecology/Obstetric [facility] [address] [facility] [address] Genny Ann CRNP [address] [facility] [place] [address] Ben, Non Stress Tests Greg [address] [place] [address] High-risk in third trimester*; Obesity in , antepartum; Short interval between pregnancies complicating , antepartum; Health counseling; Abnormal glucose tolerance in mother complicating ; Antepartum anemia complicating Allergies Active Allergy Reactions Criticality Noted Date Comments Cephalosporins 03/27/2014 Urticaria Nickel 03/27/2014 rash documented as of this encounter (statuses as of 06/07/2024) Medications 28-0.8 MG Oral Tablet Take by mouth. Active Betamethasone Dipropionate 0.05 % External Cream (Diprosone)Indicat ions:Chronic eczematoid otitis externa of both ears Apply topically to affected area 2 times a day. Apply to outer ear canal on left as directed for 7 days, then as needed for itching/dryne ss. 30 g 4 Active Ondansetron 4 MG Oral Tablet Disintegrating (Zofran)Indication s:High-risk in third trimester,Obesity in , antepartum Place 1 Tablet on tongue every 8 hours as needed for Nausea. dissolve on tongue. 20 Tablet 5 Active documented as of this encounter (statuses as of 06/07/2024) Active Problems Problem Noted Date Diagnosed Date Abnormal glucose tolerance in mother complicatin g 03/31/2024 Overview (03/31/2024): Failed glucola. 3hr ordered Antepartum anemia complicating 024 Health counseling 03/01/2024 Overview (05/22/2024): Problem Action Taken Date entered Entered by Date resolved Nutrition Due date letter given for WIC 03/01/2024 Denisa Qureshi RN 03/01/2024 smoker Quit with pos test 03/01/2024 Denisa Qureshi RN 03/01/2024 Problem Action Taken Date entered Entered by Date resolved Current needs or questions Patient denies having any current needs or questions 03/31/2024 Shoshana Rebolledo RN 03/31/2024 Problem Action Taken Date entered Entered by Date resolved Current needs or questions Patient denies having any current needs or questions 04/20/2024 Denisa Qureshi RN 04/20/2024 Problem Action Taken Date entered Entered by Date resolved Current needs or questions Patient denies having any current needs or questions 05/05/2024 Denisa Qureshi RN 05/05/2024 Problem Action Taken Date entered Entered by Date resolved Current needs or questions Patient denies having any current needs or questions 05/19/2024 Shoshana Rebolledo RN 05/19/2024 Problem Action Taken Date entered Entered by Date resolved Current needs or questions Patient denies having any current needs or questions 05/22/2024 Denisa Qureshi RN 05/22/2024 High-risk 11/17/2023 Obesity in , antepartum 11/17/2023 Overview (11/17/2023): The patient's pre-gravid BMI is 43.89. Class 3: Early GTT, baseline preE labs Growth q4 wks NSTs 34 wks Deliver by [facility] Short interval between pregn ancies complicating , antepartum 11/17/2023 Overview (11/17/2023): 1st baby born 04/2023 Iron deficiency anemia 03/09/2023 Estimated Date of Delivery Comme nts Yes 06/20/2024 Based on last me nstrual period of 09/14/2023 (Approximate) documented as of this encounter (statuses as of 06/07/2024) Resolved Problems Problem Noted Date Diagnosed Date Resolved Date Low-lying placenta 01/07/2023 Overview (01/20/2023): Noted on anatomy scan. Repeat u/s around 28 wks. Supervision of high-risk pre gnancy, unspecified trimester 11/20/2022 06/29/2023 Overview (11/20/2022): Initiated care with [facility], records scanned. A+, neg Ab screen Rubella immune RPR non-reactive Hep B non-reactive Hep C non-reactive HIV non-reactive Gc/Ct on 10/14/22 neg/neg Pap 07/2022 neg Urine culture neg [facility] 05/22/23 based on LMP of 08/15/22 U/A on 10/19/22: 10w0d BP elevated /7 at 10w6d: 149/89 Obesity in , antepartum 11/20/2022 06/29/2023 Overview (11/26/2022): Class 3 RX baby ASA; growth q4 [...] 70 - 129 mg/dL 123 (H) High documented as of this encounter (statuses as of 06/07/2024) Immunizations Name Administration Dates Next Due TDAP (age 10 and older)(Boostrix) 03/03/2023 TDAP, Age 7 and older, IM (Adacel) 03/31/2024 documented as of this encounter Social History Tobacco Use Types Packs/Day Years Used Date Smoking Tobacco: Former Cigarettes 0.3 9 0 09/28/2013 - 09/28/2022 Smokeless Tobacco: Never Alcohol Use Standard Drinks/Week Comments Not Currently 0 (1 standard drink = 0.6 oz pur e alcohol) Hunger Vital Sign Answer Date Recorded Within the past 12 months, y ou worried that your food would run out before you got the money to buy more. Never true 02/01/20 24 Within the past 12 months, t he food you bought just didn't last and you didn't have money to get more. Never true 02/01/2024 Wat[place] Depression Scale Answer Date Recorded Wat[place] Depression Scale Total 0 05/19/2024 The thought of harming myself has occurred to me . Never 05/19/2024 Childcare Answer Date Recorded Do you feel overwhelmed with taking care of a child, family member or friend? No 02/01/2024 Does your family need help f inding childcare? (Household - for ages 0-17 years) Not on file 02/01/2024 Clothing Answer Date Recorded Have you been unable to get clothing when it was really needed? No 02/01/2024 Is your family able to get c lothes or diapers when needed? (Household - for ages 0-17 years) Not on file 02/01/2024 Personal Safety Answer Date Recorded Do you feel unsafe or have concerns for your saf ety? No 02/01/2024 Do you have concerns for you r family's safety? (Household - for ages 0-17 years) Not on file 02/01/2024 Utilities Answer Date Recorded Do you have trouble paying y our heating, water, or electric bill? No 02/01/2024 Is your family able to pay t he heat, water, or electric bill? (Household - for ages 0-17 years) Not on file 02/01/2024 Does your family have access to good internet? (Household - for ages 0-17 years) Not on file 02/01/2024 Employment Status Answer Date Recorded Are you unemployed or without regular income? No 02/01/2024 Does the household have a [facility] source [facility] income? (Household - for ages 0-17 years) Not on file 02/01/2024 Social Connections Answer Date Recorded How often do you feel lonely or isolated from th ose around you? Never 02/01/2024 Financial Resource Strain Answer Date R ecorded Do you have any trouble payi ng for your medications, or do you think you might in the future? No 02/01/2024 Does your family have troubl e paying for medicine? (Household - for ages 0-17 years) Not on file 02/01/2024 Transportation Needs Answer Date Record ed Do you have trouble getting a ride to medical visits or work? (Adult - for ages 18 years and over) Not on file 02/01/2024 Does your family have a hard time getting a ride to doctors visits? (Household - for ages 0-17 years) Not on file 02/01/2024 Has lack of transportation k ept you from medical appointments, meetings, work, or from getting things needed for daily living? Check all that apply. No 02/01/2024 Do you (or your family) have trouble finding or paying for a ride (transportation)? (Household - for ages 0-17 years) Not on file 02/01/2024 Housing Stability Answer Date Recorded Do you currently live in a s helter or have no steady place to sleep at night? No 02/01/2024 Do you think you are at risk of becoming homeless? (Adult - for ages 18 years and over) Not on file 02/01/2024 Does your family worry about paying for your home or becoming homeless? (Household - for ages 0-17 years) Not on file 1 Are you homeless or worried that you might be in the future? No 02/01/2024 Are you (or your family) harriet eless or worried that you might be in the future? (Household - for ages 0-17 years) Not on file Food Insecurity Answer Date Recorded Do you need food for this week? No 02/01/2024 Are you able to get enough f ood for your family? (Household - for ages 0-17 years) Not on file 02/01/2024 Does your family need food t his week? (Household - for ages 0-17 years) Not on file 02/01/2024 Do you always have enough fo od for your family? (Household - for ages 0-17 years) Not on file 02/01/2024 Food Insecurity Answer Date Recorded Within the past 12 months, y ou worried that your food would run out before you got the money to buy more. Never true 02/01/20 24 Within the past 12 months, t he food you bought just didn't last and you didn't have money to get more. Never true 02/01/2024 Do you need food for this week? 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 Good FM. No contractions. IOL 06/13. ASSESSMENT assessment with Non-stress Test completed on 06/07/2024 at 38.1weeks gestation for indication of obesity heart baseline: 135 bpm Variability: Moderate Decelerations: absent Accelerations: present Contractions: None NST start time: 1105 NST stop time: 1127 NST strip reviewed, interpreted, and approved by OB provider, RUFINA Singh . NST strip stored in clinic storage file * Emilie Cole CMA - 06/07/2024 10:04 AM EST 38w1d + headache all day yesterday. Starting to come back slightly today documented in this encounter Plan of Treatment Health Maintenance Due Date Last Done Comments Depression Screening 2008 HPV (Gardasil) Vaccine (2 - 2-dose series) 05/15/2011 11/12/2010 Hepatitis B Vaccine (1 of 3 - 19+ 3-dose series) 12/11/2015 Pap Smear 2017 COVID-19 Vaccine (2023- season) 2023 06/15/2020, 05/25/2020 Influenza Vaccine (FLU shot) (#1) 2023 02/12/2014, 02/12/2014, 04/03/2013, Additional history exists DTap/Tdap Vaccines (4 - Td or Tdap) 03/31/2034 03/31/2024, 03/03/2023, 11/30/2019 MENINGOCOCCAL (MENACTRA/MENVEO) Aged Out 10/10/2012 No longer eligible based on patient's age to complete this topic Gonorrhea / Chlamydia Screen Discontinued 11/17/2023, 10/14/2022 Pneumococcal Vaccine: Pediatrics (0 to 5 Years) and At-Risk Patients (6 to 18 Years and 19+ Years) Aged Out No longer eligib le based on patient's age to complete this topic documented as of this encounter Goals Goal Patient Goal Type Associated Problems Recent Progress Patient-Stated? Author Reminders Care Plan OB Reminders No Gayathri, Provider documented as of this encounter Medical Devices Not on filedocumented as of this encounter Visit Diagnoses Diagnosis High-risk in third trimester- Primary Obesity in , antepartum Obesity complicating , childbirth, or the puerperium, antepartum condition or complication Short interval between pregnancies complicating , antepartum Supervision of other high-risk Health counseling Other specified counseling Abnormal glucose tolerance in mother complicating Abnormal maternal glucose tolerance, complicating , childbirth, or the puerperium, unspecified as to episode of care Antepartum anemia complicating Anemia, antepartum documented in this encounter Additional Health Concerns Active Problems Noted Date Diagnosed Date OB Reminders 03/02/2024 documented as of this encounter
--- OUTSIDE RECORDS SUMMARY | 2024-06-13 07:41 | External Medical Summary | Summary of Care ---
Author Name Unknown Organization [facility] Address [address] [place] [address] Phone [phone] Care Team Providers Care Rn Or Lpn Name Role Phone Unavailable Primary Care Provider Unavailabl e Encounter Details Date Type Department Care Team (Late st Contact Info) Description 05/31/2024 2:30 PM EST Office Visit Gynecology/Obstetric s [facility] [address] [facility] [place] [address] Genny Ann CRNP [address] [place] [address] Ben, Non Stress Tests Greg [address] [place] [address] Obesity in , antepartum*; High-risk in third trimester; Short interval between pregnancies complicating , antepartum; Health counseling; Abnormal glucose tolerance in mother complicating ; Antepartum anemia complicating Allergies Active Allergy Reactions Criticality Noted Date Comments Cephalosporins 03/27/2014 Urticaria Nickel 03/27/2014 rash documented as of this encounter (statuses as of 06/01/2024) Medications 28-0.8 MG Oral Tablet Take by [...] as of this encounter (statuses as of 06/01/2024) Active Problems Problem Noted Date Diagnosed Date [...] as of this encounter (statuses as of 06/01/2024) Resolved Problems Problem Noted Date Diagnosed Date Resolved Date Low-lying placenta 01/07/2023 Overview (01/20/2023): Noted on anatomy scan. Repeat u/s around 28 wks. Supervision of high-risk pre gnancy, unspecified trimester 11/20/2022 06/29/2023 Overview (11/20/2022): Initiated care with [facility], records scanned. A+, neg Ab screen [...] as of this encounter (statuses as of 06/01/2024) Immunizations Name Administration Dates Next Due TDAP [...] money to get more. Never true 02/01/2024 [place] Depression Scale Answer Date Recorded [place] Depression Scale Total 0 05/19/2024 The thought [...] No 02/01/2024 Does the household have a re lar source of income? 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 Good FM. No contractions or bleeding. IOL scheduled. ASSESSMENT assessment with Non-stress Test completed on 05/31/2024 at 37.1weeks gestation for indication of obesity heart baseline: 150 bpm Variability: Moderate Decelerations: absent Accelerations: present Contractions: None NST start time: 1425 NST stop time: 1506 NST strip reviewed, interpreted, and approved by OB providermartine . NST strip stored in clinic storage file documented in this encounter Plan of Treatment Upcoming Encounters Date Type Department Care Team (Late st Contact Info) Description 06/07/2024 10:00 AM EST Office Visit Gynecology/Obstetrics [facility] [address] [place] [address] Genny Ann CRNP [address] [place] [address] Ben Non Stress Tests Greg [address] [place] [address] Health Maintenance Due Date Last Done Comments Depression Screening 2008 HPV (Gardasil) Vaccine (2 - 2-dose series) 05/15/2011 11/12/2010 Hepatitis B Vaccine (1 of 3 - 19+ 3-dose series) 12/11/2015 Pap Smear 2017 COVID-19 Vaccine ( season) 2023 06/15/2020, 05/25/2020 Influenza Vaccine (FLU [...] Author Reminders Care Plan OB Reminders No Mychart, Provider documented as of this encounter Medical Devices Not on filedocumented as of this encounter Visit Diagnoses Diagnosis Obesity in , antepartum- Primary Obesity complicating , childbirth, or the puerperium, antepartum condition or complication High-risk in third trimester Short interval between pregnancies complicating , antepartum [...]
--- OUTSIDE RECORDS SUMMARY | 2024-06-13 07:42 | External Medical Summary | Summary of Care ---
Author Name Unknown Organization [facility] Address [address] [place] [address] Phone [phone] Care Team Providers Care Contact Manager Name Role Phone Unavailable Primary Care Provider Unavailabl e Reason for Visit * Reason Onset Date Comments Order Request 05/19/2024 Encounter Details Date Type Department Care Team ([facility] st Contact Info) Description 05/19/2024 Telephone Radiology [facility] [address] [place] [address] BackerYenny CRNP [address] [place] [address] Order Request Allergies Active Allergy Reactions Criticality Noted Date Comments Cephalosporins 03/27/2014 Urticaria Nickel 03/27/2014 rash documented as of this encounter (statuses as of 05/19/2024) Medications 28-0.8 MG Oral Tablet Take by mouth. Active Betamethasone Dipropionate 0.05 % External Cream (Diprosone)Indica tions:Chronic eczematoid otitis externa of both ears Apply topically to affected area 2 times a day. Apply to outer ear canal on left as directed for 7 days, then as needed for itching/drynes s. 30 g Active documented as of this encounter (statuses as of 05/19/2024) Active Problems Problem Noted Date Diagnosed Date Abnormal glucose tolerance in mother complicatin g 03/31/2024 Overview (03/31/2024): Failed glucola. 3hr ordered Antepartum anemia complicating 024 Health counseling 03/01/2024 Overview (05/19/2024): Problem Action Taken Date entered Entered by [...] or questions 05/19/2024 Shoshana Rebolledo RN 05/19/2024 High-risk 11/17/2023 Obesity in , antepartum 11/17/2023 [...] as of this encounter (statuses as of 05/19/2024) Resolved Problems Problem Noted Date Diagnosed Date Resolved Date Low-lying placenta 01/07/2023 Overview (01/20/2023): Noted on anatomy scan. Repeat u/s around 28 wks. Supervision of high-risk pre gnancy, unspecified trimester 11/20/2022 06/29/2023 Overview (11/20/2022): [facility] [...] as of this encounter (statuses as of 05/19/2024) Immunizations Name Administration Dates Next Due TDAP [...] money to buy more. Never true 02/01/20 Within the past 12 months, t he food you bought just didn't last and you didn't have money to get more. Never true 02/01/2024 [place] Depression Scale Answer Date Recorded [place] Depression Scale Total 0 05/19/2024 The thought [...] 02/01/2024 Does the household have a re gular source of income? 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 Yenny * Telephone Encounter - Ted Mancilla RDMS - 05/19/2024 9:05 AM EST If patient is to also have a BPP performed today ; can order please be placed for this visit. Thank you! documented in this encounter Plan of Treatment Upcoming Encounters Date Type Department Care Team (Late st Contact Info) Description 05/19/2024 12:15 PM EST Imaging Radiology [facility] [address] [place] [phone] 05/19/2024 12:30 PM EST Imaging Radiology [facility] [address] [place] [phone] 05/26/2024 8:30 AM EST Office Visit Gynecology/Obstetrics [facility] [address] [place] [address] Francisco Hill MD [address] [place] [address] Nurse [facility] Greg [address] [place] [address] 05/26/2024 2:30 PM EST Office Visit Gynecology/Obstetrics Javier Contreras [address] [place] [address] Francisco Hill MD [address] [place] [address] Gabbi Contreras Stress Tests Greg [address] [place] [address] Scheduled Orders Name Type Priority Associated Diagnoses Orde r Schedule US BPP W/O NON-STRESS TEST Medical Imaging Routine Obesity in , antepartum High-risk in third trimester Expected: 05/19/2024, Expires: 06/19/2025 Health Maintenance Due Date Last Done Comments [...] and 19+ Years) Aged Out No longer shaun conti based on patient's age to complete this [...] condition or complication High-risk in third trimester documented in this encounter Additional Health Concerns Active Problems Noted Date Diagnosed Date OB Reminders 03/02/2024 documented as of this encounter
--- OUTSIDE RECORDS SUMMARY | 2024-06-13 07:42 | External Medical Summary ---
Author Name Unknown Address Unknown Organization [id number]:LAB[facility]ATORY [facility] - [address] [place] [address] Laboratory Report Ordering Provider Test Date Status ASHLEY DIAZ 05/05/2024 15:08:16 Final Observation Date Value Abnormality Reference (Units ) Status Ferritin 05/05/2024 15:08:16 39 13-150 (ng /mL) Final Performing Location [facility] [address] [facility] [address] [address]
--- OUTSIDE RECORDS SUMMARY | 2024-06-13 07:42 | External Medical Summary ---
Author Name Unknown Address Unknown Organization [id number]:[facility]AT[facility] [place] [address] - [address] [place] [address] Laboratory Report Ordering Provider Test Date Status LAYA MELTON 04/04/2024 11:38:38 Final Observation Date Value Abnormality Reference (Units ) Status Glucose [Mass/volume] in Serum or Plasma --3 hours post dose glucose 04/04/2024 11:38:38 119 70-139 (mg/dL) Final Performing Location LAB[facility]ATORY [facility] [place] [address] - [address] [place] [address]
--- OUTSIDE RECORDS SUMMARY | 2024-06-13 07:42 | External Medical Summary ---
Author Name Unknown Address Unknown Organization [id number]:LABORATORY [facility] - [address] [facility] [address] Laboratory Report Ordering Provider Test Date Status ASHLEY DIAZ 05/05/2024 15:08:16 Final Observation Date Value Abnormality Reference (Units ) Status SYNC LEUKOCYTES IN BLOOD BY AUTOMATED COUNT 05/05/2024 15:08:16 11.93 Above high normal 4.00-10.80 (K/uL) Final Segs 05/05/2024 15:08:16 75.8 Above high normal 40.0-75.0 (%) Final Lymphs % 05/05/2024 15:08:16 17.5 Below low normal 18.0-42.0 (%) Final Monos 05/05/2024 15:08:16 4.6 1.0-11.0 (%) Final Eosinophils 05/05/2024 15:08:16 0.5 0.0-6.0 (%) Final Basos 05/05/2024 15:08:16 0.3 0.0-2.0 (%) Final Immature Granulocyte, Percent 05/05/2024 15:08:16 1.3 0.0-2.0 (%) Final Absolute Segs 05/05/2024 15:08:16 9.05 Above high normal 1.80-7.70 (K/uL) Final Lymphs, absolute 05/05/2024 15:08:16 2.09 1.00-4.80 (K/ul) Final Monos, Abs 05/05/2024 15:08:16 0.55 0.00-1.10 (K/uL) Final Eos, Abs 05/05/2024 15:08:16 0.06 0.00-0.70 (K/uL) Final Basos, Abs 05/05/2024 15:08:16 0.03 0.00-0.20 (K/uL) Final Immature Granulocytes, Number 05/05/2024 15:08:16 0.15 0.00-0.20 (K/uL) Final Performing Location LABORATORY [facility] - [facility] [address] [facility] [address]
--- OUTSIDE RECORDS SUMMARY | 2024-06-13 07:42 | External Medical Summary | Summary of Care ---
Author Name Unknown Organization [facility] Address [address] [place] [address] Phone [phone] Care Team Providers Care Office Services Associate Name Role Phone Unavailable Primary Care Provider Unavailabl e Reason for Visit * Reason Comments Outpatient Testing Encounter Details Date Type Department Care Team (Late st Contact Info) Description 05/05/2024 3:30 PM EST Laboratory Laboratory, [facility] [address] [place] [id number] [facility] [address] [place] [address] Antepartum anemia complicating Allergies Active Allergy Reactions Criticality Noted Date Comments Cephalosporins 03/27/2014 Urticaria Nickel 03/27/2014 rash documented as of this encounter (statuses as of 05/05/2024) Medications 28-0.8 MG Oral Tablet Take by mouth. Active Betamethasone Dipropionate 0.05 % External Cream (Diprosone)Indica tions:Chronic eczematoid otitis externa of both ears Apply topically to affected area 2 times a day. Apply to outer ear canal on left as directed for 7 days, then as needed for itching/drynes s. 30 g Active documented as of this encounter (statuses as of 05/05/2024) Active Problems Problem Noted Date Diagnosed Date Abnormal glucose tolerance in mother complicatin g 03/31/2024 Overview (03/31/2024): Failed glucola. 3hr ordered Antepartum anemia complicating 024 Health counseling 03/01/2024 Overview (05/05/2024): Problem Action Taken Date entered Entered by [...] or questions 05/05/2024 Denisa Qureshi RN 05/05/2024 High-risk 11/17/2023 Obesity in , antepartum 11/17/2023 [...] as of this encounter (statuses as of 05/05/2024) Resolved Problems Problem Noted Date Diagnosed Date [...] as of this encounter (statuses as of 05/05/2024) Immunizations Name Administration Dates Next Due TDAP [...] money to get more. Never true 02/01/2024 [place] Depression Scale Answer Date Recorded [place] Depression Scale Total 0 11/17/2023 The thought of harming myself has occurred to me . 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 on file Not on file documented as of this encounter Plan of Treatment Upcoming Encounters Date Type Department Care Team (Late st Contact Info) Description 05/19/2024 8:15 AM EST Office Visit Gynecology/Obstetrics Javier Contreras [address] [place] [address] Yenny Farrell CRNP [address] [place] [address] Nurse Ben [facility] Greg [address] [place] [address] Pending Results Name Type Priority Associated Diagnoses Date /Time CBC WITH WBC DIFFERENTIAL AND ANEMIA REFLEX WORKUP Lab Routine Antepartum anemia complicating 05/05/2024 3:08 PM EST ANEMIA CBC Lab Routine Antepartum anemia complicating 05/05/2024 3:08 PM EST DIFFERENTIAL, AUTOMATED Lab Routine Antepartum anemia complicating 05/05/2024 3:08 PM EST ANEMIA REFLEX CHEMISTRY HOLD Lab Routine Antepartum anemia complicating 05/05/2024 3:08 PM EST Health Maintenance Due Date Last Done [...] encounter Visit Diagnoses Diagnosis Antepartum anemia complicating Anemia, antepartum documented in this encounter Additional Health Concerns Active Problems Noted Date Diagnosed Date OB Reminders 03/02/2024 documented as of this encounter
--- OUTSIDE RECORDS SUMMARY | 2024-06-13 07:42 | External Medical Summary | Summary of Care ---
Author Name Unknown Organization [facility] Address [address] [place] [address] Phone [phone] Care Team Providers Care Classroom Technology Technician Name Role Phone Unavailable Primary Care Provider Unavailabl e Encounter Details Date Type Department Care Team (Late st Contact Info) Description 05/15/2024 Population Health External Data Unspecified Department Allergies Active Allergy Reactions Criticality Noted Date Comments Cephalosporins 03/27/2014 Urticaria Nickel 03/27/2014 rash documented as of this encounter (statuses as of 05/15/2024) Medications 28-0.8 MG Oral Tablet Take by mouth. Active Betamethasone Dipropionate 0.05 % External Cream (Diprosone)Indica tions:Chronic eczematoid otitis externa of both ears Apply topically to affected area 2 times a day. Apply to outer ear canal on left as directed for 7 days, then as needed for itching/drynes s. 30 g Active documented as of this encounter (statuses as of 05/15/2024) Active Problems Problem Noted Date Diagnosed Date Abnormal glucose tolerance in mother complicatin g 03/31/2024 Overview (03/31/2024): Failed glucola. 3hr ordered Antepartum anemia complicating 024 Health counseling 03/01/2024 Overview (05/05/2024): Problem Action Taken Date entered Entered by Date resolved Nutrition Due date letter given for WIC 03/01/2024 Denisa Qureshi RN 03/01/2024 smoker Quit with pos test 03/01/2024 Dneisa Qureshi RN 03/01/2024 Problem Action Taken Date [...] as of this encounter (statuses as of 05/15/2024) Resolved Problems Problem Noted Date Diagnosed Date Resolved Date Low-lying placenta 01/07/2023 3 Overview (01/20/2023): Noted on anatomy scan. Repeat u/s around 28 wks. Supervision of high-risk pre gnancy, unspecified trimester 11/20/2022 06/29/2023 Overview (11/20/2022): Initiated care with [facility], records scanned. A+, neg Ab [...] as of this encounter (statuses as of 05/15/2024) Immunizations Name Administration Dates Next Due TDAP [...] money to get more. 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 on file Not on file documented as of this encounter Plan of Treatment Upcoming Encounters Date Type Department Care Team (Late st Contact Info) Description 05/19/2024 8:15 AM EST Office Visit Gynecology/Obstetrics Javier Contreras [address] [place] [address] Yenny Farrell CRNP [address] [place] [address] Nurse Ben [facility] Return Greg [address] [place] [address] Health Maintenance Due Date Last Done Comments [...] Not on filedocumented as of this encounter Additional Health Concerns Active Problems Noted Date Diagnosed Date OB Reminders 03/02/2024 documented as of this encounter
--- OUTSIDE RECORDS SUMMARY | 2024-06-13 07:42 | External Medical Summary ---
Author Name Unknown Address Unknown Organization [id number]:[facility] [address] [place] [address] Laboratory Report Ordering Provider Test Date Status LAYA MELTON 04/04/2024 09:41:52 Final Observation Date Value Abnormality Reference (Units ) Status Glucose [Mass/volume] in Serum or Plasma --1 hour post dose glucose 04/04/2024 09:41:52 151 70-179 (mg/dL) Final Performing Location [facility] [address] [place] [address]
--- OUTSIDE RECORDS SUMMARY | 2024-06-13 07:42 | External Medical Summary ---
Author Name Unknown Address Unknown Organization [id number]:LABORATORY [facility] - [facility] [address] [place] [address] Laboratory Report Ordering Provider Test Date Status ASHLEY DIAZ 05/26/2024 15:30:43 Final Observation Date Value Abnormality Reference (Units ) Status Streptococcus agalactiae DNA [Presence] in Specimen by ALVIN with probe detection 05/26/2024 15:30:43 Negative Negative Final No Group B Streptococcus det ected by culture-enhanced PCR (amplified probe). GBS GBSCT - [facility] 05/26/2024 15:30:43 0.0 Final GBS SPCCT - [facility] 05/26/2024 15:30:43 32.3 Final Performing Location LAB[facility]ATORY [facility] - [address] [place] [address]
--- OUTSIDE RECORDS SUMMARY | 2024-06-13 07:42 | External Medical Summary ---
Author Name Unknown Address Unknown Organization [id number]:LABORATORY [facility] - [facility] [place] [id number] Laboratory Report Ordering Provider Test Date Status ASHLEY DIAZ 05/05/2024 15:08:16 Final Observation Date Value Abnormality Reference (Units ) Status WBC, Total 05/05/2024 15:08:16 11.93 Above high normal 4 .00-10.80 (K/uL) Final RBC 05/05/2024 15:08:16 3.72 3.85-5.15 (M/uL) Final Hemoglobin 05/05/2024 15:08:16 11.5 Below low normal 12 .0-15.3 (g/dL) Final Anemia reflex testing trigge rs on a HGB < 12.0 for Females and HGB < 13.0 for Males in accordance with the WHO Anemia Guidelines
Anemia reflex testing triggers on a HGB < 12.0 for Females and HGB < 13.0 for Males in accordance with the WHO Anemia Guidelines HCT 05/05/2024 15:08:16 35.4 Below low normal 36. 0-45.2 (%) Final MCV 05/05/2024 15:08:16 95.2 81.5-97.5 (fL) Final MCH 05/05/2024 15:08:16 30.9 27.0-34.0 (pg) Final MCHC 05/05/2024 15:08:16 32.5 32.0-36.0 (g/dL) Final RDW 05/05/2024 15:08:16 13.3 11.5-15.5 (%) Final Platelets 05/05/2024 15:08:16 331 140-400 (K /uL) Final MPV 05/05/2024 15:08:16 10.5 6.6-11.1 ( fL) Final Nucleated erythrocytes/100 leukocytes [Ratio] in Blood by Automated count 05/05/2024 15:08:16 0 <=0 (/100 WBCs) Final Performing Location LABORATORY [facility] - [address] [facility] [address]
--- OUTSIDE RECORDS SUMMARY | 2024-06-13 07:42 | External Medical Summary | Summary of Care ---
Author Name Unknown Organization [facility] Address [address] [place] [address] Phone [phone] Care Team Providers Care Transition Social Worker Name Role Phone Unavailable Primary Care Provider Unavailabl e Reason for Visit * Reason Comments Return Visit Encounter Details Date Type Department Care Team ([facility] Contact Info) Description 05/26/2024 2:30 PM EST Office Visit Gynecology/Obstetric s Javier Contreras [address] [facility] [place] [address] Francisco Hill MD [address] [facility] [place] [address] Gabbi Contreras Stress Tests Greg [address] [place] [address] High-risk in third trimester*; Obesity in , antepartum; Short interval between pregnancies complicating , antepartum; Health counseling; Abnormal glucose tolerance in mother complicating ; Antepartum anemia complicating Allergies Active Allergy Reactions Criticality Noted Date Comments Cephalosporins 03/27/2014 Urticaria Nickel 03/27/2014 rash documented as of this encounter (statuses as of 05/26/2024) Medications 28-0.8 MG Oral Tablet Take by [...] as of this encounter (statuses as of 05/26/2024) Active Problems Problem Noted Date Diagnosed Date [...] as of this encounter (statuses as of 05/26/2024) Resolved Problems Problem Noted Date Diagnosed Date Resolved Date Low-lying placenta 01/07/2023 Overview (01/20/2023): Noted on anatomy scan. Repeat u/s around 28 wks. Supervision of high-risk pre gnancy, unspecified trimester 11/20/2022 06/29/2023 Overview (11/20/2022): Initiated care with [facility], [...] as of this encounter (statuses as of 05/26/2024) Immunizations Name Administration Dates Next Due TDAP [...] money to get more. 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 NST; CAT1 GBs done today ASSESSMENT assessment with Non-stress Test completed on 05/26/2024 at 36weeks gestation for indication ofobesity heart baseline: 130 bpm Variability: Moderate Decelerations: absent Accelerations: present Contractions: None NST start time: 14;37 NST stop time: 15;00 NST strip reviewed, interpreted, and approved by OB provider, maciej. NST strip stored in clinic storage file * Emilie Cole CMA - 05/26/2024 2:40 PM EST 36w3d GBS swab today documented in this encounter Nursing Notes * Shoshana Rebolledo RN - 05/26/2024 3:11 PM EST Patient seen by [facility] Hedis Abstractor. Patient denies any questions or concerns. Shoshana Rebolledo RN documented in this encounter Plan of Treatment Upcoming Encounters Date Type Department Care Team (Late st Contact Info) Description 05/31/2024 2:30 PM EST Office Visit Gynecology/Obstetrics Javier Contreras [address] [place] [address] Genny Ann CRNP [address] [place] [address] Ben Non Stress Tests Greg [address] [place] [address] 06/07/2024 10:00 AM EST Office Visit Gynecology/Obstetrics Javier Contreras [address] [place] [address] Genny Ann CRNP [address] [place] [address] Gabbi Contreras Stress Tests Rgeg [address] [place] [address] Pending Results Name Type Priority Associated Diagnoses Date /Time GROUP B STREP CULTURE/PCR Lab Routine High-risk in third trimester 05/26/2024 3:30 PM EST Scheduled Orders Name Type Priority Associated Diagnoses Orde r Schedule GROUP B STREP CULTURE/PCR Lab Routine High-risk in third trimester Expected: 05/26/2024, Expires: 05/26/2025 Health Maintenance Due Date Last Done Comments Depression Screening 2008 HPV (Gardasil) Vaccine (2 - 2-dose series) 05/15/2011 11/12/2010 Hepatitis B Vaccine (1 of 3 - 19+ 3-dose series) 12/11/2015 Pap Smear 2017 COVID-19 Vaccine (3 - 2023- season) 2023 06/15/2020, 05/25/2020 Influenza Vaccine (FLU [...]
--- OUTSIDE RECORDS SUMMARY | 2024-06-13 07:42 | External Medical Summary | Summary of Care ---
Author Name Unknown Organization [facility] Address [address] [place] [address] Phone [phone] Care Team Providers Care Wallboard Worker Name Role Phone Unavailable Primary Care Provider Unavailabl e Reason for Visit * Reason Comments Return Visit Encounter Details Date Type Department Care Team ([facility] Contact Info) Description 05/19/2024 8:15 AM EST Office Visit Gynecology/Obstetri alvaro Contreras [address] [facility] [place] [address] Yenny Farrell CRNP [address] [facility] [place] [address] Nurse Agnieszka Contreras [facility] Return Greg [address] [facility] [place] [address] High-risk in third trimester*; Obesity in , antepartum; Short interval between pregnancies complicating , antepartum; Health counseling; Antepartum anemia complicating Allergies Active Allergy Reactions [...] any current needs or questions 03/31/2024 Shoshana Rebolledo, LIN 03/31/2024 Problem Action Taken Date entered Entered [...] any current needs or questions 05/19/2024 Shoshana Rebolledo, LIN 05/19/2024 High-risk 11/17/2023 Obesity in , antepartum [...] 11/20/2022 06/29/2023 Overview (11/20/2022): [facility] care with [facility] [...] money to get more. 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 No ctx, leaking, bleeding. Unsure of contraceptive plans, will be formula feeding. Recommend looking at www.bedsider.org for options. Pt was to start weekly NSTs at 34 weeks and growth q4 weeks, not scheduled at prior visits. Radiology able to complete growth scan and BPP today at 12 pm, pt agreeable to this. Discussed recommendation for delivery by [facility], induction scheduled. Will return in 1 week for NST/OB visit, GBS swab. RUFINA Aguero * Ameena Linares LPN - 05/19/2024 8:14 AM EST 35w3d Denies vaginal bleeding/rom + movement No new concerns documented in this encounter Nursing Notes * Shoshana Rebolledo RN - 05/19/2024 8:22 AM EST Patient seen by [facility] Fulfillment Coordinator. Patient denies any questions or concerns. Shoshana Rebolledo RN documented in this encounter Plan of Treatment Upcoming Encounters Date Type Department Care Team (Late st Contact Info) Description 05/19/2024 12:15 PM EST Imaging Radiology [facility] [address] [place] [id number] 05/26/2024 8:30 AM EST Office Visit Gynecology/Obstetrics [facility] [address] [place] [address] Francisco Hill MD [address] [place] [address] Nurse Ben [facility] Return [facility] [address] [place] [address] 05/26/2024 2:30 PM EST Office Visit Gynecology/Obstetrics [facility] [address] [place] [address] Francisco Hill MD [address] [place] [address] Gabbi Contreras Stress Tests [facility] [address] [place] [address] Scheduled Orders Name Type Priority Associated Diagnoses Orde r Schedule US PREG FOLLOW-UP EACH FETUS Medical Imaging Routine High-risk in third trimester Obesity in , antepartum Expected: 05/19/2024 (Approximate), Expires: 06/19/2025 Health Maintenance Due Date Last [...] other high-risk Health counseling Other specified counseling Antepartum anemia complicating Anemia, antepartum documented in this encounter Additional Health Concerns Active Problems Noted Date Diagnosed Date OB Reminders 03/02/2024 documented as of this encounter
--- OUTSIDE RECORDS SUMMARY | 2024-06-13 07:42 | External Medical Summary | Summary of Care ---
Author Name Unknown Organization [facility] Address [address] [place] [address] Phone [phone] Care Team Providers Care Padder Cushion Name Role Phone Unavailable Primary Care Provider Unavailabl e Reason for Visit * Reason Comments Return Visit Encounter Details Date Type Department Care Team (Late st Contact Info) Description 05/05/2024 2:45 PM EST Office Visit Gynecology/Obstetri alvaro Contreras [address] [facility] [place] [address] Francisco Hill MD [address] [place] [address] Nurse Ben [facility] Return Greg [address] [facility] [place] [address] High-risk in third trimester*; Obesity in , [...] 11/20/2022 06/29/2023 Overview (11/20/2022): Initiated care with [facility], [...] money to get more. 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 on file Not on file documented as of this encounter Last Filed Vital Signs Vital Sign Reading Time Taken Comments Blood Pressure 118/70 05/05/2024 2:46 PM EST Pulse - - Temperature - - Respiratory Rate - - Oxygen Saturation - - Inhaled Oxygen Concentration - - Weight - - Height 157.5 cm (5' 2") 05/05/2024 2:46 PM EST Body Mass Index - - documented in this encounter Progress Notes * Francisco Hill MD - 05/05/2024 2:51 PM EST Pt doing well No comaplaints RTC next week Starting NST after 34 weeks Delivery by EDC * Janet Sadler LPN - 05/05/2024 2:46 PM EST 33w3d Needs cbc done today documented in this encounter Nursing Notes * Denisa Qureshi RN - 05/05/2024 2:54 PM EST 47. Client's Concerns About Delivery or The Process: denies 48. Problems Feeding Previous Babies: denies 49. Concerns About Feeding This Baby: denies 50. Plans For Baby's Space: getting ready at home 51. Client's Plans After : Will Stay at Home to Care for Baby Comments (Including Residential Mental Health Worker Plans If Returning to Work/School): SUMMARY/INFORMATION 52. Need For Additional Information / Help: * Denisa Qureshi RN - 05/05/2024 2:53 PM EST Patient seen by [facility] Mini Lab Operator. Patient denies any questions or concerns. documented in this encounter Plan of Treatment Upcoming Encounters Date Type Department Care Team (Late st Contact Info) Description 05/19/2024 8:15 AM EST Office Visit Gynecology/Obstetrics Javier Contreras [address] [place] [address] [place], RUFINA Bowser [address] [place] [address] Nurse Agnieszka Contrerass Return Greg [address] [place] [address] Pending Results Name Type Priority Associated Diagnoses Date /Time CBC WITH WBC DIFFERENTIAL AND ANEMIA REFLEX WORKUP Lab Routine Antepartum anemia complicating 05/05/2024 3:08 PM EST Scheduled Orders Name Type Priority Associated Diagnoses Orde r Schedule CBC WITH WBC DIFFERENTIAL AND ANEMIA REFLEX WORKUP Lab Routine Antepartum anemia complicating Expected: 05/05/2024, Expires: 05/05/2025 Health Maintenance Due Date Last Done Comments [...] Author Reminders Care Plan OB Reminders No Olimpiahart, Provider documented as of this encounter Medical [...]
--- OUTSIDE RECORDS SUMMARY | 2024-06-13 07:42 | External Medical Summary ---
Author Name Unknown Address Unknown Organization K01:LABORATORY [facility] - [address] [place] [address] Laboratory Report Ordering Provider Test Date Status ASHLEY DIAZ 05/05/2024 15:08:16 Final Observation Date Value Abnormality Reference (Units ) Status Vitamin B12 05/05/2024 15:08:16 [phone] (pg/mL) Final Performing Location LABORATORY C - [address] [place] [address]
--- OUTSIDE RECORDS SUMMARY | 2024-06-13 07:42 | External Medical Summary | Summary of Care ---
Author Name Unknown Organization [facility] Address [address] [place] [address] Phone [phone] Care Team Providers Care Unattended Ground Sensor Specialist Name Role Phone Unavailable Primary Care Provider Unavailabl e Encounter Details Date Type Department Care Team (Late st Contact Info) Description 04/03/2024 Population Health External Data Unspecified Department Allergies Active Allergy Reactions Criticality Noted Date Comments Cephalosporins 03/27/2014 Urticaria Nickel 03/27/2014 rash documented as of this encounter (statuses as of 04/03/2024) Medications 28-0.8 MG Oral Tablet Take by mouth. Active Betamethasone Dipropionate 0.05 % External Cream (Diprosone)Indica tions:Chronic eczematoid otitis externa of both ears Apply topically to affected area 2 times a day. Apply to outer ear canal on left as directed for 7 days, then as needed for itching/drynes s. 30 g Active documented as of this encounter (statuses as of 04/03/2024) Active Problems Problem Noted Date Diagnosed Date Abnormal glucose tolerance in mother complicatin g 03/31/2024 Overview (03/31/2024): Failed glucola. 3hr ordered Antepartum anemia complicating 024 Health counseling 03/01/2024 Overview (03/31/2024): Problem Action Taken Date entered Entered by Date resolved Nutrition Due date letter given for WIC 03/01/2024 Denisa Qureshi RN 03/01/2024 smoker Quit with pos test 03/01/2024 Denisa Qureshi RN 03/01/2024 Problem Action Taken Date entered Entered by Date resolved Current needs or questions Patient denies having any current needs or questions 03/31/2024 Shoshana Rebolledo RN 03/31/2024 High-risk 11/17/2023 Obesity in , antepartum 11/17/2023 [...] as of this encounter (statuses as of 04/03/2024) Resolved Problems Problem Noted Date Diagnosed Date Resolved Date Low-lying placenta 01/07/2023 Overview (01/20/2023): Noted on anatomy scan. Repeat u/s around 28 wks. Supervision of high-risk pre gnancy, unspecified trimester 11/20/2022 06/29/2023 Overview (11/20/2022): Initiated care with [facility], records [...] as of this encounter (statuses as of 04/03/2024) Immunizations Name Administration Dates Next Due TDAP [...] money to get more. 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 [address] [place] [address] Antelmo Saunders MD [address] [place] [phone] Health Maintenance Due Date Last Done Comments [...]
--- OUTSIDE RECORDS SUMMARY | 2024-06-13 07:42 | External Medical Summary ---
Author Name Unknown Address Unknown Organization K01:LABORATORY [facility] - [address] [place] [id number] Laboratory Report Ordering Provider Test Date Status ASHLEY DIAZ 05/05/2024 15:08:16 Final Observation Date Value Abnormality Reference (Units ) Status Folic Acid 05/05/2024 15:08:16 >20.0 >4.5 (ng/ mL) Final Performing Location LAB[facility]ATORY [facility] - [address] [place] [id number]
--- OUTSIDE RECORDS SUMMARY | 2024-06-13 07:42 | External Medical Summary ---
Author Name Unknown Address Unknown Organization K01:LABORATORY [facility] - [address] [place] [id number] Laboratory Report Ordering Provider Test Date Status ASHLEY DIAZ 05/05/2024 15:08:16 Final Observation Date Value Abnormality Reference (Units ) Status Retic, % (auto) 05/05/2024 15:08:16 2.94 Above high normal 0.80-1.90 (%) Final Reticulocytes, Absolute 05/05/2024 15:08:16 108.5 Above high normal 31.3-100.1 (K/uL) Final Reticulocyte fraction, immature 05/05/2024 15:08:16 21.5 Above high normal 2.5-20.6 (%) Final Reticulocyte HGB 05/05/2024 15:08:16 33.0 29.7-37.4 (pg) Final Performing Location LABORATORY [facility] [address] [facility] [address]
--- OUTSIDE RECORDS SUMMARY | 2024-06-13 07:42 | External Medical Summary | Summary of Care ---
Author Name Unknown Organization [facility] Address [address] [place] [address] Phone [phone] Care Team Providers Care In Service Coordinator Name Role Phone Unavailable Primary Care Provider Unavailabl e Reason for Visit * Reason Comments Outpatient Testing Encounter Details Date Type Department Care Team (Late st Contact Info) Description 04/04/2024 8:30 AM EST Laboratory Laboratory, [facility] [address] [place] [id number] [facility] [address] [place] [address] Abnormal glucose tolerance in mother complicating Allergies Active Allergy Reactions Criticality Noted Date Comments Cephalosporins 03/27/2014 Urticaria Nickel 03/27/2014 rash documented as of this encounter (statuses as of 04/04/2024) Medications 28-0.8 MG Oral Tablet Take by mouth. Active Betamethasone Dipropionate 0.05 % External Cream (Diprosone)Indica tions:Chronic eczematoid otitis externa of both ears Apply topically to affected area 2 times a day. Apply to outer ear canal on left as directed for 7 days, then as needed for itching/drynes s. 30 g Active documented as of this encounter (statuses as of 04/04/2024) Active Problems Problem Noted Date Diagnosed Date Abnormal glucose tolerance in mother complicatin g 03/31/2024 Overview (03/31/2024): Failed glucola. 3hr ordered Antepartum anemia complicating 024 Health counseling 03/01/2024 Overview (03/31/2024): Problem Action Taken Date entered Entered by Date resolved Nutrition Due date letter given for WIC 03/01/2024 Denisa Qureshi, LIN 03/01/2024 smoker Quit with pos test 03/01/2024 [...] as of this encounter (statuses as of 04/04/2024) Resolved Problems Problem Noted Date Diagnosed Date [...] as of this encounter (statuses as of 04/04/2024) Immunizations Name Administration Dates Next Due TDAP [...] money to get more. 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 Not on file documented as of this encounter Plan of Treatment Upcoming Encounters Date Type Department Care Team (Late st Contact Info) Description 04/20/2024 8:45 AM EST Office Visit Gynecology/Obstetrics [facility] [address] [place] [address] Antelmo Saunders MD [address] [place] [phone] Pending Results Name Type Priority Associated Diagnoses Date /Time GESTATIONAL GLUCOSE TOLERANCE, 3 HOUR Lab Routine Abnormal glucose tolerance in mother complicating 04/04/2024 8:39 AM EST 100-G GESTATIONAL GLUCOSE, 2 HOUR Lab Routine Abnormal glucose tolerance in mother complicating 04/04/2024 10:40 AM EST 100-G GESTATIONAL GLUCOSE, 3 HOUR Lab Routine Abnormal glucose tolerance in mother complicating 04/04/2024 11:38 AM EST Health Maintenance Due Date Last [...] Date/Time Associated Diagnosis Comments 100-G GESTATIONAL GLUCOSE, 1 HOUR Routine 04/04/2024 9:41 AM EST Abnormal glucose tolerance in mother complicating 100-G GESTATIONAL GLUCOSE, FASTING Routine 04/04/2024 8:39 AM EST Abnormal glucose tolerance in mother complicating documented in this encounter Results * 100-G GESTATIONAL GLUCOSE, 1 HOUR (04/04/2024 9:41 AM EST) 100-g Gestational Glucose, 1 Hour 151 70 - 179 mg/dL 04/04/2024 10:57 AM EST LABORATORY [facility] Blood Venous blood specimen / Unknown Venipuncture / Unknown 04/04/2024 9:41 AM EST 04/04/2024 9:41 AM EST us Genny ALMARAZ LAB BLOOD ORDERABLES Final Re sult LABORATORY [facility] [address] [place] [id number] * 100-G GESTATIONAL GLUCOSE, FASTING (04/04/2024 8:39 AM EST) 100-g Gestational Glucose, Fasting 91 70 - 94 mg/dL 04/04/2024 9:42 AM EST LAB[facility]ATORY [facility] Blood Venous blood specimen / Unknown Venipuncture / Unknown 04/04/2024 8:39 AM EST 04/04/2024 8:39 AM EST Narrative LAB[facility] - 04/04/2024 9:42 AM EST Based on ACOG guideline, gestational diabetes mellitus is diagnosed when any of the following is met: Fasting is greater than or equal to 95 mg/dL 1 hour is greater than or equal to 180 mg/dL 2 hour is greater than or equal to 155 mg/dL 3 hour is greater than or equal to 140 mg/dL us Gneny ALMARAZ LAB BLOOD ORDERABLES Final Re sult LAB[facility]ATORY [place] [facility] [address] [facility] [place] [address] documented in this encounter Visit Diagnoses Diagnosis Abnormal glucose tolerance in mother complicating Abnormal maternal glucose tolerance, complicating , childbirth, or the puerperium, unspecified as to episode of care documented in this encounter Additional Health Concerns Active Problems Noted Date Diagnosed Date OB Reminders 03/02/2024 documented as of this encounter
--- OUTSIDE RECORDS SUMMARY | 2024-06-13 07:42 | External Medical Summary | Summary of Care ---
Author Name Unknown Organization [facility] Address [address] [place] [address] Phone [phone] Care Team Providers Care Food Safety Director Name Role Phone Unavailable Primary Care Provider Unavailabl e Reason for Visit * Reason Comments Return Visit Encounter Details Date Type Department Care Team ([facility] [address] Contact Info) Description 05/19/2024 8:15 AM EST Office Visit Gynecology/Obstetri alvaro Contreras [address] [facility] [place] [address] Yenny Farrell CRNP [address] [place] [address] Nurse Agnieszka Contreras [facility] Greg [address] [facility] [address] High-risk in third trimester*; Obesity in , [...] current needs or questions 03/31/2024 Shoshana Rebolledo, ILN 03/31/2024 Problem Action Taken Date entered Entered [...] 11/20/2022 06/29/2023 Overview (11/20/2022): Initiated care with [facility] [...] money to get more. 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 Patient denies any questions or concerns. Shoshana Rebolledo RN documented in this encounter Plan of Treatment Upcoming Encounters Date Type Department Care Team (Late st Contact Info) Description 05/19/2024 12:15 PM EST Imaging Radiology [facility] [address] [place] [phone] 05/26/2024 8:30 AM EST Office Visit Gynecology/Obstetrics [facility] [address] [place] [address] Francisco Hill MD [address] [place] [address] Nurse Ben [facility] [address] [place] [address] 05/26/2024 2:30 PM EST Office Visit Gynecology/Obstetrics [facility] [address] [place] [address] Francisco Hill MD [address] [place] [address] Gabbi Contreras Stress Tests [facility] [address] [place] [address] Scheduled Orders Name Type Priority Associated Diagnoses [...]
--- OUTSIDE RECORDS SUMMARY | 2024-06-13 07:42 | External Medical Summary ---
Author Name Unknown Address Unknown Organization K01:LABORATORY [facility] - [address] [place] [address] Laboratory Report Ordering Provider Test Date Status ASHLEY DIAZ 05/05/2024 15:08:16 Final Observation Date Value Abnormality Reference (Units ) Status TSH 05/05/2024 15:08:16 1.70 0.27-4.20 (uIU/mL) Final Performing Location LAB[facility]ATORY [facility] - [address] [place] [address]
--- OUTSIDE RECORDS SUMMARY | 2024-06-13 07:42 | External Medical Summary | Summary of Care ---
Author Name Unknown Organization [facility] Address [address] [place] [address] Phone [phone] Care Team Providers Care Tow Motor Driver Name Role Phone Unavailable Primary Care Provider Unavailabl e Reason for Visit * Reason Comments Return Visit Encounter Details Date Type Department Care Team (Late st Contact Info) Description 05/22/2024 10:00 AM EST Office Visit Gynecology/Obstetric s Javier Contreras [address] [place] [address] Jennifer Acosta PA-C [address] [facility] [place] [address] High-risk in third trimester*; Obesity in , antepartum; Short interval between pregnancies complicating , antepartum; Health counseling; Abnormal glucose tolerance in mother complicating ; Antepartum anemia complicating Allergies Active Allergy Reactions Criticality Noted Date Comments Cephalosporins 03/27/2014 Urticaria Nickel 03/27/2014 rash documented as of this encounter (statuses as of 05/22/2024) Medications 28-0.8 MG Oral Tablet Take by [...] as of this encounter (statuses as of 05/22/2024) Active Problems Problem Noted Date Diagnosed Date [...] as of this encounter (statuses as of 05/22/2024) Resolved Problems Problem Noted Date Diagnosed Date Resolved Date Low-lying placenta 01/07/2023 Overview (01/20/2023): Noted on anatomy scan. Repeat u/s around 28 wks. Supervision of high-risk pre gnancy, unspecified trimester 11/20/2022 06/29/2023 Overview (11/20/2022): Initiated care with [facility], records [...] as of this encounter (statuses as of 05/22/2024) Immunizations Name Administration Dates Next Due TDAP [...] money to get more. 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 Was bowling Wednesday night. Right hand dominant. [place] fine and then woke next morning with pain on right lower side wrapping up towards oblique. Worse withmovements. She reports nauseous yesterday with vomiting. Denies diarrhea and fever. Has been drinking fluids, has not tried to eat today. Has not tried Tylenol for pain as tries to avoid typically. No headaches, dysuria. Denies VB, LOF, contractions. Baby is active. Her BP is 132/78, patient reports came straight from pediatric appointment and daughter had to getsshots and go to lab. On exam pain just proximal to belly button and wrapping up towards oblique. No pain near ASIS on right or RUQ pain or epigastric pain. Discussed suspect MSK related either that or GI infection. Jc sent for nausea. Encouraged her to rest, push fluids, try to eat and take Tylenol for pain. If symptoms worsen or do not improve notify office. If severe pain, needs ER. She will keep her regular scheduled appointment with [facility] for Wednesday. Jnenifer Acosta PA-C documented in this encounter Nursing Notes * Denisa Qureshi RN - 05/22/2024 10:31 AM EST Patient seen by [facility] Director Of Teaching And Learning. * Minda Hernandez LPN - 05/22/2024 10:17 AM EST 35w6d Right side pain started yesterday. documented in this encounter Plan of Treatment Upcoming Encounters Date Type Department Care Team (Late st Contact Info) Description 05/26/2024 2:30 PM EST Office Visit Gynecology/Obstetrics Javier Contreras [address] [place] [address] Francisco Hill MD [address] [place] [address] Ben, Non Stress Tests Greg [address] [place] [address] 05/31/2024 2:30 PM EST Office Visit Gynecology/Obstetrics Javier Contreras [address] [place] [address] Genny Ann CRNP [address] [place] [address] Ben Non Stress Tests Greg [address] [place] [address] 06/07/2024 10:00 AM EST Office Visit Gynecology/Obstetrics Javier Hendrickss [address] [place] [address] Genny Ann CRNP [address] [place] [address] Ben Non Stress Tests Greg [address] [place] [address] Health Maintenance Due Date Last Done Comments [...]
--- OUTSIDE RECORDS SUMMARY | 2024-06-13 07:42 | External Medical Summary ---
Author Name Unknown Address Unknown Organization K0G:LABORATORY [facility] - [address] [place] [address] Laboratory Report Ordering Provider Test Date Status LINHLAYA 04/04/2024 08:39:05 Final Based on ACOG guideline, ges tational [...] Abnormality Reference (Units ) Status Glucose, fasting 04/04/2024 08:39:05 91 70- 94 (mg/dL) Final Performing Location LABORATORY [facility] 0 - [address] [place] [address]
--- OUTSIDE RECORDS SUMMARY | 2024-06-13 07:42 | External Medical Summary ---
Author Name Unknown Address Unknown Organization K0G:LABORATORY [facility] - [address] [place] [address] Laboratory Report Ordering Provider Test Date Status LAYA MELTON 04/04/2024 10:40:15 Final Observation Date Value Abnormality Reference (Units ) Status Glucose, 2-hr post glucose challenge 04/04/2024 10:40:15 114 70-154 (mg/dL) Final Performing Location LABORATORY [facility] 0 - [address] [place] [address]
--- OUTSIDE RECORDS SUMMARY | 2024-06-13 07:42 | External Medical Summary | Summary of Care ---
Author Name Unknown Organization [facility] Address [address] [place] [address] Phone [phone] Care Team Providers Care Screen Examiner Name Role Phone Unavailable Primary Care Provider Unavailabl e Reason for Visit * Reason Comments Return Visit Encounter Details Date Type Department Care Team ([facility] Contact Info) Description 04/20/2024 8:30 AM EST Office Visit Gynecology/Obstetri alvaro Contreras [address] [facility] [place] [address] Antelmo Saunders MD [address] [place] [phone] Nurse Ben [facility] Greg [address] [place] [address] High-risk in third trimester*; Obesity in , antepartum; Short interval between pregnancies complicating , antepartum; Health counseling; Abnormal glucose tolerance in mother complicating ; Antepartum anemia complicating Allergies Active Allergy Reactions Criticality Noted Date Comments Cephalosporins 03/27/2014 Urticaria Nickel 03/27/2014 rash documented as of this encounter (statuses as of 04/20/2024) Medications 28-0.8 MG Oral Tablet Take by mouth. Active Betamethasone Dipropionate 0.05 % External Cream (Diprosone)Indica tions:Chronic eczematoid otitis externa of both ears Apply topically to affected area 2 times a day. Apply to outer ear canal on left as directed for 7 days, then as needed for itching/drynes s. 30 g Active documented as of this encounter (statuses as of 04/20/2024) Active Problems Problem Noted Date Diagnosed Date Abnormal glucose tolerance in mother complicatin g 03/31/2024 Overview (03/31/2024): Failed glucola. 3hr ordered Antepartum anemia complicating 024 Health counseling 03/01/2024 Overview (04/20/2024): Problem Action Taken Date entered Entered by [...] or questions 04/20/2024 Denisa Qureshi RN 04/20/2024 High-risk 11/17/2023 Obesity in , antepartum 11/17/2023 [...] as of this encounter (statuses as of 04/20/2024) Resolved Problems Problem Noted Date Diagnosed Date [...] as of this encounter (statuses as of 04/20/2024) Immunizations Name Administration Dates Next Due TDAP [...] money to get more. 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 Good movement perceived by the patient. * Denisa Qureshi RN - 04/20/2024 8:36 AM EST Pt c/o nausea and vomiting since yesterday. documented in this encounter Plan of Treatment Upcoming Encounters Date Type Department Care Team (Late st Contact Info) Description 05/05/2024 2:45 PM EST Office Visit Gynecology/Obstetrics [address] [place] [address] Francisco Hill MD [address] [place] [address] Nurse Ben [facility] Greg [address] [place] [address] Health Maintenance Due Date Last Done Comments [...]
--- OUTSIDE RECORDS SUMMARY | 2024-06-13 07:42 | External Medical Summary ---
Author Name Unknown Address Unknown Organization K01:LABORATORY [facility] - [address] [place] [address] Laboratory Report Ordering Provider Test Date Status ASHLEY DIAZ 05/05/2024 15:08:16 Final Observation Date Value Abnormality Reference (Units ) Status Creatinine 05/05/2024 15:08:16 0.5 0.5-1.0 (mg/dL) Final Glomerular filtration rate/1.73 sq M.predicted [Volume Rate/Area] in Serum, Plasma or Blood by Creatinine-based formula (CKD-EPI) 05/05/2024 15:08:16 >90 >=60 (mL/min) Final eGFR is calculated based on the CKD-EPI 2020 equation. Performing Location LABORATORY [facility] - [address] [place] [address]
--- OUTSIDE RECORDS SUMMARY | 2024-06-13 07:43 | External Medical Summary | Summary of Care ---
Author Name Unknown Organization [facility] Address [address] [place] [address] Phone [phone] Care Team Providers Care Option Trader Name Role Phone Unavailable Primary Care Provider Unavailabl e Reason for Visit * Reason Comments Healthy Beginnings Return Encounter Details Date Type Department Care Team ([facility] st Contact Info) Description 03/31/2024 10:30 AM EST Office Visit Gynecology/Obstetri alvaro Contreras [address] [place] [address] Genny Ann CRNP [address] [facility] [place] [address] Nurse Ben Healthy Beginnings Return Greg [address] [place] [facility] [place] [address] High-risk in third trimester*; Obesity in , antepartum; Short interval between pregnancies complicating , antepartum; Health counseling; Need for wowzyelxaw-dfbgdnb-eg rtussis (Tdap) vaccine Allergies Active Allergy Reactions Criticality Noted Date Comments Cephalosporins 03/27/2014 Urticaria Nickel 03/27/2014 rash documented as of this encounter (statuses as of 03/31/2024) Medications 28-0.8 MG Oral Tablet Take by mouth. Active Betamethasone Dipropionate 0.05 % External Cream (Diprosone)Indica tions:Chronic eczematoid otitis externa of both ears Apply topically to affected area 2 times a day. Apply to outer ear canal on left as directed for 7 days, then as needed for itching/drynes s. 30 g Active documented as of this encounter (statuses as of 03/31/2024) Active Problems Problem Noted Date Diagnosed Date Health counseling 03/01/2024 Overview (03/31/2024): Problem Action [...] as of this encounter (statuses as of 03/31/2024) Resolved Problems Problem Noted Date Diagnosed Date Resolved Date Low-lying placenta 01/07/2023 Overview (01/20/2023): Noted on anatomy scan. Repeat u/s around 28 wks. Supervision of high-risk pre gnancy, unspecified trimester 11/20/2022 06/29/2023 Overview (11/20/2022): Initiated care with [facility], records [...] as of this encounter (statuses as of 03/31/2024) Immunizations Name Administration Dates Next Due TDAP [...] money to get more. 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 Has had a few random pains low in her pelvis, do not last long. Denies bleeding, contractions, LOF. Feeling baby move. Has anterior placenta. Growth u/s today, formal report pending. Preliminary shows adequate growth, FHR 138bpm. Glucola, TDAP today. RUFINA Singh * Emilie Cole CMA - 03/31/2024 9:59 AM EST 28w3d Sharp shooting pain on both sides of abdomen, usually happens when up and walking. Noticed 2 weeks ago, does not happen every day. TDAP vaccine today Ultrasound: SHAKIR 15.8 Growth 45% documented in this encounter Nursing Notes * Shoshana Rebolledo RN - 03/31/2024 11:16 AM EST Patient seen by [facility] Diesel Service Technician. Patient denies any questions or concerns. Shoshana Rebolledo RN documented in this encounter Plan of Treatment Upcoming Encounters Date Type Department Care Team (Late st Contact Info) Description 04/20/2024 8:45 AM EST [facility] [address] [place] [address] Antelmo Saunders MD [address] [place] [phone] Health Maintenance Due Date Last Done Comments [...] other high-risk Health counseling Other specified counseling Need for wdxtjwbzpu-vhhmgcx-qpxqytiqg (Tdap) vaccine Need for prophylactic vaccination with combined dyliwmapat-sagcmxb-idjnanbdn (DTP) vaccine documented in this encounter Additional Health Concerns Active Problems Noted Date Diagnosed Date OB Reminders 03/02/2024 documented as of this encounter
--- OUTSIDE RECORDS SUMMARY | 2024-06-13 07:43 | External Medical Summary | Summary of Care ---
Author Name Unknown Organization [facility] Address [address] [place] [address] Phone [phone] Care Team Providers Care Rn Correctional Name Role Phone Unavailable Primary Care Provider Unavailabl e Encounter Details Date Type Department Care Team (Late st Contact Info) Description 03/31/2024 Telephone Gynecology/Obstetrics [facility] [address] [facility] [place] [address] Genny Ann CRNP [address] [place] [address] Allergies Active Allergy Reactions Criticality Noted Date [...] money to get more. 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 She verbalized understanding to all. Patient agreeable to schedule 3 hr glucose. Please assist with this. All instructions for 3 hour given and patient verbalized understanding. * Telephone Encounter - Genny Ann CRNP - 03/31/2024 1:10 PM EST Please notify pt that glucola elevated (161). Needs 3hr GTT. Orders placed. Mild anemia, recommend Vitron C daily. Can get this OTC. Recheck CBC in 4 weeks. documented in this encounter Plan of Treatment Upcoming Encounters Date Type Department Care Team (Late st Contact Info) Description 04/04/2024 8:30 AM EST Laboratory Laboratory, [facility] [address] [place] [phone] [facility] [address] [place] [address] 04/20/2024 8:45 AM EST Office Visit Gynecology/Obstetrics [facility] [address] [place] [address] Antelmo Saunders MD [address] [place] [phone] Scheduled Orders Name Type Priority Associated Diagnoses Orde r Schedule GESTATIONAL GLUCOSE TOLERANCE, 3 HOUR Lab Routine Abnormal glucose tolerance in mother complicating Expected: 04/01/2024 (Approximate), Expires: 03/31/2025 Health Maintenance Due Date Last Done Comments [...] Patient-Stated? Author Reminders Care Plan OB Reminders Tracie Trinh Provider documented as of this encounter Medical Devices Not on filedocumented as of this encounter Visit Diagnoses Diagnosis Abnormal glucose tolerance in mother complicating - Primary Abnormal maternal glucose tolerance, complicating , childbirth, or the puerperium, unspecified as to episode of care documented in this encounter Additional Health Concerns Active Problems Noted Date Diagnosed Date OB Reminders 03/02/2024 documented as of this encounter
--- OUTSIDE RECORDS SUMMARY | 2024-06-13 07:43 | External Medical Summary | Summary of Care ---
Author Name Unknown Organization [facility] Address [address] [place] [address] Phone [phone] Care Team Providers Care Cobbler Apprentice Name Role Phone Unavailable Primary Care Provider Unavailabl e Encounter Details Date Type Department Care Team (Late st Contact Info) Description 03/31/2024 Telephone Gynecology/Obstetrics [facility] [address] [facility] [place] [address] Genny Ann CRNP [address] [place] [address] Allergies Active Allergy Reactions Criticality Noted Date [...] money to get more. 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 [place] [address] Antelmo Saunders MD 132 [facility] [place] [phone] Scheduled Orders Name Type Priority Associated Diagnoses [...]
--- OUTSIDE RECORDS SUMMARY | 2024-06-13 07:43 | External Medical Summary | Summary of Care ---
Author Name Unknown Organization [facility] Address [address] [place] [address] Phone [phone] Care Team Providers Care Manager Post Name Role Phone Unavailable Primary Care Provider Unavailabl e Reason for Visit * Reason Comments Healthy Beginnings Return Encounter Details Date Type Department Care Team ([facility] st Contact Info) Description 03/31/2024 10:30 AM EST Office Visit Gynecology/Obstetri alvaro Contreras [address] [place] [address] Genny Ann CRNP [address] [facility] [place] [address] Nurse Ben Healthy Beginnings Return Greg [address] [facility] [address] High-risk in third trimester*; Obesity in , antepartum; Short interval between pregnancies complicating , antepartum; Health counseling; Need for uvokdpbxae-ohycpww-cj rtussis (Tdap) vaccine Allergies Active Allergy Reactions [...] as needed for itching/drynes s. 30 g 4 Active documented as of this encounter (statuses as of 03/31/2024) Active Problems Problem Noted Date Diagnosed Date Health counseling 03/01/2024 Overview (03/01/2024): Problem Action Taken Date entered Entered by Date resolved Nutrition Due date letter given for WIC 03/01/2024 Denisa Qureshi RN 03/01/2024 smoker Quit with pos test 03/01/2024 Denisa Qureshi RN 03/01/2024 High-risk 11/17/2023 Obesity in , antepartum 11/17/2023 [...] (11/20/2022): Initiated care with [facility] [...] money to get more. 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 [place] [address] Antelmo Saunders MD 132 [facility] [place] [phone] Health Maintenance Due Date Last Done Comments Depression Screening 2008 HPV (Gardasil) Vaccine (2 - 2-dose series) 05/15/2011 11/12/2010 Hepatitis B Vaccine (1 of 3 - 19+ 3-dose series) 12/11/2015 Pap Smear 2017 COVID-19 Vaccine (3 - 2023-25 season) 2023 06/15/2020, 05/25/2020 Influenza Vaccine (FLU [...] Health counseling Other specified counseling Need for hwugjbzsxf-zdpeshg-feivyrobx (Tdap) vaccine Need for prophylactic vaccination with combined zyjkwzdlyx-tlheoim-lrheqegkr (DTP) vaccine documented in this encounter Additional Health Concerns Active Problems Noted Date Diagnosed Date OB Reminders 03/02/2024 documented as of this encounter
--- OUTSIDE RECORDS SUMMARY | 2024-06-13 07:43 | External Medical Summary ---
Author Name Unknown Address Unknown Organization K01:[facility] - [address] [place] [address] Laboratory Report Ordering Provider Test Date Status LAYA MELTON 03/31/2024 10:31:20 Final Observation Date Value Abnormality Reference (Units ) Status TSH 03/31/2024 10:31:20 2.54 0.27-4.20 (uIU/mL) Final Performing Location [facility] - [address] [place] [address]
--- OUTSIDE RECORDS SUMMARY | 2024-06-13 07:43 | External Medical Summary | Summary of Care ---
Author Name Unknown Organization [facility] Address [address] [place] [address] Phone [phone] Care Team Providers Care Contract Recruiter Name Role Phone Unavailable Primary Care Provider Unavailabl e Reason for Visit * Reason Comments Healthy Beginnings Return Encounter Details Date Type Department Care Team ([facility] st Contact Info) Description 03/31/2024 10:30 AM EST Office Visit Gynecology/Obstetri alvaro Contreras [address] [place] [address] Genny Ann CRNP [address] [facility] [place] [address] Nurse Ben Healthy Beginnings Return Greg [address] [facility] [place] [address] High-risk in third trimester*; Obesity in , antepartum; Short interval between pregnancies complicating , antepartum; Health counseling; Need for allrfdppnn-sdwroil-uu rtussis (Tdap) vaccine Allergies Active Allergy Reactions [...] 11/20/2022 06/29/2023 Overview (11/20/2022): Initiated care with [facility], records [...] money to get more. 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 file Not [...] 04/20/2024 8:45 AM EST Office [facility] [place] [address] Antelmo Saunders MD 132 [facility] [place] [phone] Health Maintenance Due [...] Health counseling Other specified counseling Need for giecvfkaxn-czlrxug-ckyhdxqde (Tdap) vaccine Need for prophylactic vaccination with combined jvpgksjhxm-hgmmjju-tfmaoauny (DTP) vaccine documented in this encounter Additional Health Concerns Active Problems Noted Date Diagnosed Date OB Reminders 03/02/2024 documented as of this encounter
--- OUTSIDE RECORDS SUMMARY | 2024-06-13 07:43 | External Medical Summary | Summary of Care ---
Author Name Unknown Organization [facility] Address [address] [place] [address] Phone [phone] Care Team Providers Care Analysis Analyst Name Role Phone Unavailable Primary Care Provider Unavailabl e Reason for Visit * Reason Comments Healthy Beginnings Return Encounter Details Date Type Department Care Team ([facility] st Contact Info) Description 03/31/2024 10:30 AM EST Office Visit Gynecology/Obstetri alvaro Contreras [address] [place] [address] Genny Ann CRNP [address] [address] Nurse Ben Healthy Beginnings Return Greg [address] [place] [address] High-risk in third trimester*; Obesity in , antepartum; Short interval between pregnancies complicating , antepartum; Health counseling; Need for ywrmkoonji-uyxpkcd-si rtussis (Tdap) vaccine Allergies Active Allergy Reactions [...] money to get more. 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 Patient denies any questions or concerns. Shoshana Rebolledo RN documented in this encounter Plan of Treatment Upcoming Encounters Date Type Department Care Team (Late st Contact Info) Description 04/20/2024 8:45 AM EST Office [facility] [address] [place] [address] Antelmo Saunders MD [address] [place] [phone] Health Maintenance Due Date Last Done Comments [...] Health counseling Other specified counseling Need for aucpdweduh-vnvtsff-yldaivhkj (Tdap) vaccine Need for prophylactic vaccination with combined bbvzwttwsv-vwotdro-hhckkhffx (DTP) vaccine documented in this encounter Additional Health Concerns Active Problems Noted Date Diagnosed Date OB Reminders 03/02/2024 documented as of this encounter
--- OUTSIDE RECORDS SUMMARY | 2024-06-13 07:43 | External Medical Summary | Summary of Care ---
Author Name Unknown Organization [facility] Address [address] [place] [address] Phone [phone] Care Team Providers Care Surgical Scrub Tech Name Role Phone Unavailable Primary Care Provider Unavailabl e Reason for Visit * Reason Comments Outpatient Testing Encounter Details Date Type Department Care Team ([facility] st Contact Info) Description 03/31/2024 9:40 AM EST Laboratory Laboratory, [facility] [address] [place] [phone] [facility] [address] [place] [address] High-risk in second trimester Allergies Active Allergy Reactions Criticality Noted [...] money to get more. 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 Not on file Not on file documented as of this encounter Plan of Treatment Upcoming Encounters Date Type Department Care Team (Late st Contact Info) Description 04/20/2024 8:45 AM EST Office Visit Gynecology/Obstetrics Javier Contreras [address] [place] [address] Antelmo Saunders MD [address] [place] [phone] Pending Results Name Type Priority Associated Diagnoses Date /Time 50-G GESTATIONAL GLUCOSE, 1 HOUR Lab Routine High-risk in second trimester 03/31/2024 10:31 AM EST SYPHILIS ANTIBODY SCREEN WITH REFLEX TO RPR Lab Routine High-risk in second trimester 03/31/2024 10:31 AM EST CBC WITH WBC DIFFERENTIAL AND ANEMIA REFLEX WORKUP Lab Routine High-risk in second trimester 03/31/2024 10:31 AM EST SYPHILIS ANTIBODY SCREEN Lab Routine High-risk in second trimester 03/31/2024 10:31 AM EST ANEMIA CBC Lab Routine High-risk in second trimester 03/31/2024 10:31 AM EST DIFFERENTIAL, AUTOMATED Lab Routine High-risk in second trimester 03/31/2024 10:31 AM EST ANEMIA REFLEX CHEMISTRY HOLD Lab Routine High-risk in second trimester 03/31/2024 10:31 AM EST Health Maintenance Due Date Last [...] Author Reminders Care Plan OB Reminders No Gayathri Provider documented as of this encounter Medical Devices Not on filedocumented as of this encounter Visit Diagnoses Diagnosis High-risk in second trimester documented in this encounter Additional Health Concerns Active Problems Noted Date Diagnosed Date OB Reminders 03/02/2024 documented as of this encounter
--- OUTSIDE RECORDS SUMMARY | 2024-06-13 07:43 | External Medical Summary | Summary of Care ---
Author Name Unknown Organization [facility] Address [address] [place] [address] Phone [phone] Care Team Providers Care Polisher Numeral Name Role Phone Unavailable Primary Care Provider Unavailabl e Encounter Details Date Type Department Care Team (Late st Contact Info) Description 03/31/2024 Telephone Gynecology/Obstetrics [facility] [address] [facility] [place] [address] Genny Ann CRNP [address] [place] [address] Allergies Active Allergy Reactions Criticality Noted Date [...] money to get more. 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
--- OUTSIDE RECORDS SUMMARY | 2024-06-13 07:43 | External Medical Summary ---
Author Name Unknown Address Unknown Organization K01:[facility] [address] [place] [address] Laboratory Report Ordering Provider Test Date Status LAYA MELTON 03/31/2024 10:31:20 Final Observation Date Value Abnormality Reference (Units ) Status Treponema pallidum Ab [Presence] in Serum by Immunoassay 03/31/2024 10:31:20 Nonreactive Nonreactive Final No serologic evidence of syp hilis. No additional testing clinicially indicated at this time. Consider repeat testing in 2-4 weeks if acute or primary syphilis is suspected. Performing Location [facility] [place] [address] [place] [address]
--- OUTSIDE RECORDS SUMMARY | 2024-06-13 07:44 | External Medical Summary | Summary of Care ---
Author Name Unknown Organization [facility] Address [address] [place] [address] Phone [phone] Care Team Providers Care Music Professor Name Role Phone Unavailable Primary Care Provider Unavailabl e Reason for Visit * Reason Comments Return Visit Encounter Details Date Type Department Care Team ([facility] st Contact Info) Description 02/02/2024 10:30 AM EDT Office Visit Gynecology/Obstetric s Javier Contreras [address] [facility] [place] [address] Genny Ann CRNP [address] [place] [address] High-risk in second trimester*; Obesity in , antepartum; Short interval between pregnancies complicating , antepartum Allergies Active Allergy Reactions Criticality Noted Date Comments Cephalosporins 03/27/2014 Urticaria Nickel 03/27/2014 rash documented as of this encounter (statuses as of 02/02/2024) Medications Medication Sig Dispensed Refills Start Date End Date Status 28-0.8 MG Oral Tablet Take by mouth. Active Betamethasone Dipropionate 0.05 % External Cream (Diprosone)Indications :Chronic eczematoid otitis externa of both ears Apply topically to affected area 2 times a day. Apply to outer ear canal on left as directed for 7 days, then as needed for itching/dryness. 30 g 08/10/2023 Active documented as of this encounter (statuses as of 02/02/2024) Active Problems Problem Noted Date Diagnosed Date High-risk 11/17/2023 Obesity in , antepartum 11/17/2023 Overview: The patient's pre-gravid BMI is 43.89. Class 3: Early GTT, baseline preE labs Growth q4 wks NSTs 34 wks Deliver by [facility] Short interval between pregn ancies complicating , antepartum 11/17/2023 Overview: 1st baby born 04/2023 Iron deficiency anemia 03/09/2023 Estimated Date of Delivery Comme nts Yes 06/20/2024 Based on last me nstrual period of 09/14/2023 (Approximate) documented as of this encounter (statuses as of 02/02/2024) Resolved Problems Problem Noted Date Diagnosed Date Resolved Date Low-lying placenta 01/07/2023 Overview: Noted on anatomy scan. Repeat u/s around 28 wks. Supervision of high-risk pre gnancy, unspecified trimester 11/20/2022 06/29/2023 Overview: Initiated care with [facility], records scanned. A+, neg Ab screen Rubella immune RPR non-reactive Hep B non-reactive Hep C non-reactive HIV non-reactive Gc/Ct on 10/14/22 neg/neg Pap 07/2022 neg Urine culture neg [facility] 05/22/23 based on LMP of 08/15/22 U/A on 10/19/22: 10w0d BP elevated 7/7 at 10w6d: 149/89 Obesity in , antepartum 11/20/2022 06/29/2023 Overview: Class 3 RX baby ASA; growth [...] as of this encounter (statuses as of 02/02/2024) Immunizations Name Administration Dates Next Due TDAP [...] money to get more. Never true 02/01/2024 [place] Depression Scale Answer Date Recorded [place] Depression Scale Total 0 11/17/2023 The thought [...] Sign Reading Time Taken Comments Blood Pressure 118/74 02/02/2024 10:13 AM EDT Pulse - - Temperature - - Respiratory Rate - - Oxygen Saturation - - Inhaled Oxygen Concentration - - Weight 109 kg (240 lb 6.4 oz) 02/02/2024 10:13 A M EDT Height - - Body Mass Index 43.97 11/17/2023 9:27 AM EDT documented in this encounter Progress Notes * Genny Ann CRNP - 02/02/2024 10:20 AM EDT 20w1d No concerns. Has not felt FM yet, has anterior placenta. Denies bleeding or LOF. Anatomy u/s today, results pending. Having another girl! RUFINA Singh * Emilie Cole CMA - 02/02/2024 10:13 AM EDT 20w1d Denies any concerns documented in this encounter Plan of Treatment Upcoming Encounters Date Type Department Care Team (Late st Contact Info) Description 03/01/2024 10:45 AM EST Office Visit Gynecology/Obstetrics [facility] [address] [place] [address] Genny Ann CRNP [address] [place] [address] Health Maintenance Due Date Last Done Comments Depression Screening 2008 HPV (Gardasil) Vaccine (2 - 2-dose series) 05/15/2011 11/12/2010 Hepatitis B Vaccine (1 of 3 - 19+ 3-dose series) 12/11/2015 Pap Smear 2017 COVID-19 Vaccine ( season) 2023 06/15/2020, 05/25/2020 Influenza Vaccine (FLU shot) (#1) 2023 02/12/2014, 02/12/2014, 04/03/2013, Additional history exists DTap/Tdap Vaccines (3 - Td or Tdap) 03/03/2033 03/03/2023, 11/30/2019 MENINGOCOCCAL (MENACTRA/MENVEO) Aged Out 10/10/2012 [...] complicating , antepartum Supervision of other high-risk documented in this encounter
--- OUTSIDE RECORDS SUMMARY | 2024-06-13 07:44 | External Medical Summary ---
Author Name Unknown Address Unknown Organization [id number]:[facility] [address] - [address] [place] [id number] Laboratory Report Ordering Provider Test Date Status LAYA MELTON 03/31/2024 10:31:20 Final Observation Date Value Abnormality Reference (Units ) Status WBC, Total 03/31/2024 10:31:20 11.11 Above high normal 4 .00-10.80 (K/uL) Final RBC 03/31/2024 10:31:20 3.82 3.85-5.15 (M/uL) Final Hemoglobin 03/31/2024 10:31:20 11.6 Below low normal 12 .0-15.3 (g/dL) Final Anemia reflex testing trigge rs on a HGB < 12.0 for Females and HGB < 13.0 for Males in accordance with the WHO Anemia Guidelines
Anemia reflex testing triggers on a HGB < 12.0 for Females and HGB < 13.0 for Males in accordance with the WHO Anemia Guidelines HCT 03/31/2024 10:31:20 35.1 Below low normal 36. 0-45.2 (%) Final MCV 03/31/2024 10:31:20 91.9 81.5-97.5 (fL) Final MCH 03/31/2024 10:31:20 30.4 27.0-34.0 (pg) Final MCHC 03/31/2024 10:31:20 33.0 32.0-36.0 (g/dL) Final RDW 03/31/2024 10:31:20 13.6 11.5-15.5 (%) Final Platelets 03/31/2024 10:31:20 308 140-400 (K /uL) Final MPV 03/31/2024 10:31:20 9.8 6.6-11.1 ( fL) Final Performing Location [facility] [address] - [address] [place] [id number]
--- OUTSIDE RECORDS SUMMARY | 2024-06-13 07:44 | External Medical Summary ---
Author Name Unknown Address Unknown Organization [id number]:[facility] [place] - [address] [place] [address] Laboratory Report Ordering Provider Test Date Status LAYA MELTON 03/31/2024 10:31:20 Final Observation Date Value Abnormality Reference (Units ) Status Retic, % (auto) 03/31/2024 10:31:20 2.96 Above high normal 0.80-1.90 (%) Final Reticulocytes, Absolute 03/31/2024 10:31:20 112.2 Above high normal 31.3-100.1 (K/uL) Final Reticulocyte fraction, immature 03/31/2024 10:31:20 25.0 Above high normal 2.5-20.6 (%) Final Reticulocyte HGB 03/31/2024 10:31:20 33.0 29.7-37.4 (pg) Final Performing Location [facility] [place] - [address] [place] [id number]
--- OUTSIDE RECORDS SUMMARY | 2024-06-13 07:44 | External Medical Summary ---
Author Name Unknown Address Unknown Organization [id number]:[facility] [place] [address] [place] [id number] Laboratory Report Ordering Provider Test Date Status LINHLAYA 03/31/2024 10:31:20 Final Observation Date Value Abnormality Reference (Units ) Status Iron 03/31/2024 10:31:20 60 33-151 (ug/dL) Final Iron-binding capacity 03/31/2024 10:31:20 564 Above high normal 250-425 (ug/dL) Final Transferrin Sat % 03/31/2024 10:31:20 11 Below low normal 15-55 (%) Final Performing Location [facility] [place] - [address] [place] [address]
--- OUTSIDE RECORDS SUMMARY | 2024-06-13 07:44 | External Medical Summary ---
Author Name Unknown Address Unknown Organization [id number]:LABORATORY [facility] [place] - [address] [place] [address] Laboratory Report Ordering Provider Test Date Status LAYA MELTON 03/31/2024 10:31:20 Final Observation Date Value Abnormality Reference (Units ) Status Ferritin 03/31/2024 10:31:20 54 13-150 (ng /mL) Final Performing Location LABORATORY [facility] - [address] [place] [address]
--- OUTSIDE RECORDS SUMMARY | 2024-06-13 07:44 | External Medical Summary | Summary of Care ---
Author Name Unknown Organization [facility] Address [address] [place] [address] Phone [phone] Care Team Providers Care Utility Engineer Name Role Phone Unavailable Primary Care Provider Unavailabl e Reason for Visit * Reason Comments Return Visit Encounter Details Date Type Department Care Team ([facility] Contact Info) Description 01/12/2024 10:30 AM EDT Office Visit Gynecology/Obstetric s Javier Contreras [address] [facility] [address] Genny Ann CRNP [address] [facility] [address] High-risk in third trimester*; Obesity in , antepartum; Short interval between pregnancies complicating , antepartum; Other specified related conditions, second trimester Allergies Active Allergy Reactions Criticality Noted Date Comments Cephalosporins 03/27/2014 Urticaria Nickel 03/27/2014 rash documented as of this encounter (statuses as of 01/12/2024) Medications Medication Sig Dispensed Refills Start Date [...] as of this encounter (statuses as of 01/12/2024) Active Problems Problem Noted Date Diagnosed Date [...] as of this encounter (statuses as of 01/12/2024) Resolved Problems Problem Noted Date Diagnosed Date Resolved Date Low-lying placenta 01/07/2023 Overview: Noted on anatomy scan. Repeat u/s around 28 wks. Supervision of high-risk pre gnancy, unspecified trimester 11/20/2022 06/29/2023 Overview: [facility] [...] as of this encounter (statuses as of 01/12/2024) Immunizations Name Administration Dates Next Due TDAP [...] money to get more. Never true 01/06/2023 [place] Depression Scale Answer Date Recorded [place] Depression Scale Total 0 11/17/2023 The thought of harming myself has occurred to me . Never 11/17/2023 Childcare Answer Date Recorded Do you feel overwhelmed with taking care of a child, family member or friend? No 01/06/2023 Does your family need help f inding childcare? (Household - for ages 0-17 years) Not on file 01/06/2023 Clothing Answer Date Recorded Have you been unable to get clothing when it was really needed? No 01/06/2023 Is your family able to get c lothes or diapers when needed? (Household - for ages 0-17 years) Not on file 01/06/2023 Personal Safety Answer Date Recorded Do you feel unsafe or have concerns for your saf ety? No 01/06/2023 Do you have concerns for you r family's safety? (Household - for ages 0-17 years) Not on file 01/06/2023 Utilities Answer Date Recorded Do you have trouble paying y our heating, water, or electric bill? (Adult - for ages 18 years and over) Not on file 01/10/2024 Is your family able to pay t he heat, water, or electric bill? (Household - for ages 0-17 years) Not on file 01/10/2024 Does your family have access to good internet? (Household - for ages 0-17 years) Not on file 01/10/2024 Employment Status Answer Date Recorded Are you unemployed or without regular income? No 01/06/2023 Does the household have a re gular source of income? (Household - for ages 0-17 years) Not on file 01/06/2023 Social Connections Answer Date Recorded How often do you feel lonely or isolated from those around you? (Adult - for ages 18 years and over) Not on file 01/10/2024 Financial Resource Strain Answer Date R ecorded Do you have any trouble payi ng for your medications, or do you think you might in the future? No 01/06/2023 Does your family have troubl e paying for medicine? (Household - for ages 0-17 years) Not on file 01/06/2023 Transportation Needs Answer Date Record ed READ ONLY Do you have troubl e getting a ride to medical visits or work? Never True 01/06/2023 Does your family have a hard time getting a ride to doctors visits? (Household - for ages 0-17 years) Not on file 01/06/2023 Has lack of transportation k ept you from medical appointments, meetings, work, or from getting things needed for daily living? Check all that apply. (Adult - for ages 18 years and over) Not on file 01/06/2023 Do you (or your family) have trouble finding or paying for a ride (transportation)? (Household - for ages 0-17 years) Not on file 01/06/2023 Housing Stability Answer Date Recorded Do you currently live in a s helter or have no steady place to sleep at night? No 01/06/2023 READ ONLY Do you think you a re at risk of becoming homeless? No 01/06/2023 Does your family worry about paying for your home or becoming homeless? (Household - for ages 0-17 years) Not on file 0 01/06/2023 Are you homeless or worried that you might be in the future? (Adult - for ages 18 years and over) Not on file Are you (or your family) harriet eless or worried that you might be in the future? (Household - for ages 0-17 years) Not on file Food Insecurity Answer Date Recorded Do you need food for this week? No 01/06/2023 Are you able to get enough f ood for your family? (Household - for ages 0-17 years) Not on file 01/06/2023 Does your family need food t his week? (Household - for ages 0-17 years) Not on file 01/06/2023 Do you always have enough fo od for your family? (Household - for ages 0-17 years) Not on file 01/06/2023 Estimated Date of Delivery Comme nts [...] Sign Reading Time Taken Comments Blood Pressure 120/76 01/12/2024 10:18 AM EDT Pulse - - Temperature - - Respiratory Rate - - Oxygen Saturation - - Inhaled Oxygen Concentration - - Weight 107.5 kg (237 lb) 01/12/2024 10:18 AM EDT Height - - Body Mass Index 43.35 11/17/2023 9:27 AM EDT documented in this encounter Progress Notes * Genny Ann CRNP - 01/12/2024 10:32 AM EDT 17w1d No concerns. Has not felt FM yet. No bleeding. Anatomy u/s with next visit. RUFINA Singh * Emilie Cole CMA - 01/12/2024 10:18 AM EDT 17w1d Denies any concerns Anatomy scan next visit documented in this encounter Plan of Treatment Upcoming Encounters Date Type Department Care Team (Late st Contact Info) Description 02/02/2024 9:00 AM EDT Imaging Radiology [facility] 2nd Floor, [place] [address] [place] [address] 02/02/2024 10:30 AM EDT Office Visit Gynecology/Obstetrics [facility] [address] [place] [address] Genny Ann CRNP [address] [place] [address] Scheduled Orders Name Type Priority Associated Diagnoses Orde r Schedule US PREG SINGLE/1ST GEST, 14 WEEKS OR LATER Medical Imaging Routine High-risk in third trimester Other specified related conditions, second trimester Expected: 02/01/2024 (Approximate), Expires: 02/10/2025 Health Maintenance Due Date Last Done Comments Depression Screening 2008 HPV (Gardasil) Vaccine (2 - 2-dose series) 05/15/2011 11/12/2010 Hepatitis B Vaccine (1 of 3 - 19+ 3-dose series) 12/11/2015 Pap Smear 2017 COVID-19 Vaccine ( season) 2023 06/15/2020, 05/25/2020 Influenza Vaccine (FLU shot) (#1) 2023 02/12/2014, 04/03/2013, 04/11/2012, Additional history exists DTap/Tdap Vaccines (3 - Td or Tdap) 03/03/2033 03/03/2023, 11/30/2019 Gonorrhea / Chlamydia Screen Discontinued 11/17/2023, 10/14/2022 MENINGOCOCCAL (MENACTRA/MENVEO) Aged Out No longer [...] complicating , antepartum Supervision of other high-risk Other specified related conditions, second trimester documented in this encounter
--- OUTSIDE RECORDS SUMMARY | 2024-06-13 07:44 | External Medical Summary ---
Author Name Unknown Address Unknown Organization [id number]:LABOR[facility]ORY [facility] [address] - [address] [place] [id number] Laboratory Report Ordering Provider Test Date Status LAYA MELTON 03/31/2024 10:31:20 Final Observation Date Value Abnormality Reference (Units ) Status Glucose [Moles/volume] in Serum or Plasma --1 hour post 50 g glucose PO 03/31/2024 10:31:20 161 Above high normal 70-129 (mg/dL) Final Performing Location LAB[facility]ORY [facility] [address] - [address] [place] [address]
--- OUTSIDE RECORDS SUMMARY | 2024-06-13 07:44 | External Medical Summary | Summary of Care ---
Author Name Unknown Organization [facility] Address [address] [place] [address] Phone [phone] Care Team Providers Care Campus Executive Director Name Role Phone Unavailable Primary Care Provider Unavailabl e Encounter Details Date Type Department Care Team ([facility] st Contact Info) Description 03/02/2024 Population Health External Data Unspecified Department Allergies Active Allergy Reactions Criticality Noted Date Comments Cephalosporins 03/27/2014 Urticaria Nickel 03/27/2014 rash documented as of this encounter (statuses as of 03/02/2024) Medications Medication Sig Dispensed Refills Start Date [...] as of this encounter (statuses as of 03/02/2024) Active Problems Problem Noted Date Diagnosed Date Health counseling 03/01/2024 Overview: Problem Action Taken Date entered Entered by [...] as of this encounter (statuses as of 03/02/2024) Resolved Problems Problem Noted Date Diagnosed Date Resolved Date Low-lying placenta 01/07/2023 Overview: Noted on anatomy scan. Repeat u/s around 28 wks. Supervision of high-risk pre gnancy, unspecified trimester 11/20/2022 06/29/2023 Overview: [facility] [...] as of this encounter (statuses as of 03/02/2024) Immunizations Name Administration Dates Next Due TDAP [...] money to get more. Never true 02/01/2024 [place] Depression Scale Answer Date Recorded [place] Depression Scale Total 0 11/17/2023 The thought [...] Team (Late st Contact Info) Description 03/31/2024 9:40 AM EST Laboratory Laboratory, [facility] [address] [place] [id number] [facility] [address] [place] [address] 03/31/2024 9:45 AM EST Imaging Radiology [facility] 2nd Floor, [place] [address] [place] [address] 03/31/2024 10:30 AM EST Office Visit Gynecology/Obstetrics [facility] [address] [place] [address] Genny Ann CRNP [address] [place] [address] Nurse [facility] [address] [place] [address] Health Maintenance Due Date Last Done Comments [...]
--- OUTSIDE RECORDS SUMMARY | 2024-06-13 07:44 | External Medical Summary | Summary of Care ---
Author Name Unknown Organization [facility] Address [address] [place] [address] Phone [phone] Care Team Providers Care Primer Waterproofing Machine Adjuster Name Role Phone Unavailable Primary Care Provider Unavailabl e Encounter Details Date Type Department Care Team (Late st Contact Info) Description 02/03/2024 Telephone [facility] [address] [facility] [place] [id number] Genny Ann CRNP [address] [place] [address] Allergies Active Allergy Reactions Criticality Noted Date Comments Cephalosporins 03/27/2014 Urticaria Nickel 03/27/2014 rash documented as of this encounter (statuses as of 02/03/2024) Medications Medication Sig Dispensed Refills Start Date [...] as of this encounter (statuses as of 02/03/2024) Active Problems Problem Noted Date Diagnosed Date [...] as of this encounter (statuses as of 02/03/2024) Resolved Problems Problem Noted Date Diagnosed Date Resolved Date Low-lying placenta 01/07/2023 Overview: Noted on anatomy scan. Repeat u/s around 28 wks. Supervision of high-risk pre gnancy, unspecified trimester 11/20/2022 06/29/2023 Overview: [facility] as of this encounter (statuses as of 02/03/2024) Immunizations Name Administration Dates Next Due TDAP [...] money to get more. Never true 02/01/2024 [place] Depression Scale Answer Date Recorded [place] Depression Scale Total 0 11/17/2023 The thought [...] encounter Miscellaneous Notes * Telephone Encounter - Chetna Jane OSA - 02/03/2024 9:16 AM EDT Patient scheduled * Telephone Encounter - Minda Hernandez LPN - 02/03/2024 9:07 AM EDT Pt aware, transferred to [place] to schedule. * Telephone Encounter - Genny Ann CRNP - 02/03/2024 8:32 AM EDT Needs u/s in about 2 weeks for missed anatomy, please help schedule. Order placed. documented in this encounter Plan of Treatment Upcoming Encounters Date Type Department Care Team (Late st Contact Info) Description 02/17/2024 9:45 AM EDT Imaging Radiology [facility] 2nd [facility] [address] [place] [address] 03/01/2024 10:45 AM EST Office Visit Gynecology/Obstetrics [facility] [address] [place] [address] Genny Ann CRNP [address] [place] [address] Scheduled Orders Name Type Priority Associated Diagnoses Orde r Schedule US PREG LIMITED 1 OR MORE FETUSES Medical Imaging Routine Encounter for follow-up ultrasound of anatomy Expected: 02/17/2024 (Approximate), Expires: 03/05/2025 Health Maintenance Due Date Last Done Comments [...] Encounter for follow-up ultrasound of anatomy- Primary documented in this encounter
--- OUTSIDE RECORDS SUMMARY | 2024-06-13 07:44 | External Medical Summary | Summary of Care ---
Author Name Unknown Organization [facility] Address [address] [place] [address] Phone [phone] Care Team Providers Care Cookie Padder Name Role Phone Unavailable Primary Care Provider Unavailabl e Reason for Visit * Reason Comments [facility] Return Encounter Details Date Type Department Care Team (Late st Contact Info) Description 03/01/2024 10:45 AM EST Office Visit Gynecology/Obstetric s Javier Contreras [address] [facility] [place] [address] Genny Ann CRNP [address] [facility] [address] High-risk in second trimester*; Obesity in , antepartum; Short interval between pregnancies complicating , antepartum Allergies Active Allergy Reactions Criticality Noted Date Comments Cephalosporins 03/27/2014 Urticaria Nickel 03/27/2014 rash documented as of this encounter (statuses as of 03/01/2024) Medications Medication Sig Dispensed Refills Start Date [...] as of this encounter (statuses as of 03/01/2024) Active Problems Problem Noted Date Diagnosed Date [...] as of this encounter (statuses as of 03/01/2024) Resolved Problems Problem Noted Date Diagnosed Date Resolved Date Low-lying placenta 01/07/2023 Overview: Noted on anatomy scan. Repeat u/s around 28 wks. Supervision of high-risk pre gnancy, unspecified trimester 11/20/2022 06/29/2023 Overview: Initiated care with [facility], [...] as of this encounter (statuses as of 03/01/2024) Immunizations Name Administration Dates Next Due TDAP [...] money to get more. Never true 02/01/2024 [place] Depression Scale Answer Date Recorded [place] Depression Scale Total 0 11/17/2023 The thought [...] Sign Reading Time Taken Comments Blood Pressure 120/74 03/01/2024 10:37 AM EST Pulse - - Temperature - - Respiratory Rate - - Oxygen Saturation - - Inhaled Oxygen Concentration - - Weight 112.5 kg (248 lb) 03/01/2024 10:37 AM EST Height - - Body Mass Index 45.36 11/17/2023 9:27 AM EDT documented in this encounter Progress Notes * Genny Ann CRNP - 03/01/2024 10:55 AM EST 24w1d Complaints: none Feeling well overall. Feeling some FM. No contractions, bleeding, or LOF. Glucola, growth u/s with next visit. RUFINA Singh * Emilie Cole CMA - 03/01/2024 10:37 AM EST 24w1d Denies any concerns documented in this encounter Nursing Notes * Denisa Qureshi RN - 03/01/2024 11:25 AM EST have you cut down with your smoking yes have you quit yes have you seen a rag willow operator no have you seen a social workerno are you receiving counseling no have you received dental care during your no are you enrolled in [place] yes do you receive food stamps or mathew assistance no are you having problems with depression, receiving counseling or taking prescribed medications no have you had little interest in doing things, or have you been bothered by feeling down, depressed,or hopeless no documented in this encounter Plan of Treatment Upcoming Encounters Date Type Department Care Team (Late st Contact Info) Description 03/31/2024 9:40 AM EST Laboratory Laboratory, [address] [place] [phone] [facility] [address] [place] [address] 03/31/2024 9:45 AM EST Imaging Radiology [facility] 2nd [facility] [place] [address] [place] [address] 03/31/2024 10:30 AM EST Office Visit Gynecology/Obstetrics [address] [place] [address] Genny Ann CRNP [address] [place] [address] Nurse Ben [facility] Return Greg [address] [place] [address] Scheduled Orders Name Type Priority Associated Diagnoses Orde r Schedule 50-G GESTATIONAL GLUCOSE, 1 HOUR Lab Routine High-risk in second trimester Expected: 03/28/2024 (Approximate), Expires: 03/01/2025 SYPHILIS ANTIBODY SCREEN WITH REFLEX TO RPR Lab Routine High-risk in second trimester Expected: 03/28/2024 (Approximate), Expires: 03/01/2025 CBC WITH WBC DIFFERENTIAL AND ANEMIA REFLEX WORKUP Lab Routine High-risk in second trimester Expected: 03/28/2024 (Approximate), Expires: 03/01/2025 PREG FOLLOW-UP EACH FETUS Medical Imaging Routine Obesity in , antepartum Expected: 03/31/2024 (Approximate), Expires: 03/31/2025 Health Maintenance Due Date [...]
--- OUTSIDE RECORDS SUMMARY | 2024-06-13 07:44 | External Medical Summary ---
Author Name Unknown Address Unknown Organization [id number]:LABORATORY [facility] [address] [place] [address] Laboratory Report Ordering Provider Test Date Status LAYA MELTON 03/31/2024 10:31:20 Final Observation Date Value Abnormality Reference (Units ) Status SYNC LEUKOCYTES IN BLOOD BY AUTOMATED COUNT 03/31/2024 10:31:20 11.11 Above high normal 4.00-10.80 (K/uL) Final Segs 03/31/2024 10:31:20 78.3 Above high normal 40.0-75.0 (%) Final Lymphs % 03/31/2024 10:31:20 15.9 Below low normal 18.0-42.0 (%) Final Monos 03/31/2024 10:31:20 4.5 1.0-11.0 (%) Final Eosinophils 03/31/2024 10:31:20 1.1 0.0-6.0 (%) Final Basos 03/31/2024 10:31:20 0.2 0.0-2.0 (%) Final Absolute Segs 03/31/2024 10:31:20 8.70 Above high normal 1.80-7.70 (K/uL) Final Lymphs, absolute 03/31/2024 10:31:20 1.77 1.00-4.80 (K/ul) Final Monos, Abs 03/31/2024 10:31:20 0.50 0.00-1.10 (K/uL) Final Eos, Abs 03/31/2024 10:31:20 0.12 0.00-0.70 (K/uL) Final Basos, Abs 03/31/2024 10:31:20 0.02 0.00-0.20 (K/uL) Final Performing Location LABORATORY [facility] [address] [place] [address]
--- OUTSIDE RECORDS SUMMARY | 2024-06-13 07:44 | External Medical Summary ---
Author Name Unknown Address Unknown Organization [id number]:LABORATORY [facility] [place] - [address] [place] [address] Laboratory Report Ordering Provider Test Date Status LAYA MELTON 03/31/2024 10:31:20 Final Observation Date Value Abnormality Reference (Units ) Status Vitamin B12 03/31/2024 10:31:20 218 Below low normal 2 32-1245 (pg/mL) Final Performing Location [facility]ATORY [facility] - [address] [place] [address]
--- OUTSIDE RECORDS SUMMARY | 2024-06-13 07:44 | External Medical Summary ---
Author Name Unknown Address Unknown Organization [id number]:[facility] [place] [address] [place] [address] Laboratory Report Ordering Provider Test Date Status LAYA MELTON 03/31/2024 10:31:20 Final Observation Date Value Abnormality Reference (Units ) Status Creatinine 03/31/2024 10:31:20 0.5 0.5-1.0 (mg/dL) Final Glomerular filtration rate/1.73 sq M.predicted [Volume Rate/Area] in Serum, Plasma or Blood by Creatinine-based formula (CKD-EPI) 03/31/2024 10:31:20 >90 >=60 (mL/min) Final eGFR is calculated based on the CKD-EPI 2020 equation. Performing Location [facility] [place] [address] [place] [address]
--- OUTSIDE RECORDS SUMMARY | 2024-06-13 07:44 | External Medical Summary | Summary of Care ---
Author Name Unknown Organization [facility] Address [address] [place] [address] Phone [phone] Care Team Providers Care Mailing Machine Assistant Name Role Phone Unavailable Primary Care Provider Unavailabl e Reason for Visit * Reason Comments Healthy [facility]nings Return Encounter Details Date Type Department Care Team (Late st Contact Info) Description 03/01/2024 10:45 AM EST Office Visit Gynecology/Obstetric s Javier Contreras [address] [facility] [place] [address] Genny Ann CRNP [address] [facility] [address] High-risk in second trimester*; Obesity in , [...] trimester 11/20/2022 06/29/2023 Overview: [facility]iated care with [facility] [...] money to get more. Never true 02/01/2024 [place] Depression Scale Answer Date Recorded [place] Depression Scale Total 0 11/17/2023 The thought [...] you quit yes have you seen a machine assembler for puller over no have you seen a social workerno [...] Description 03/31/2024 9:40 AM EST Laboratory Laboratory, [address] [place] [phone] [facility] [address] [place] [address] 03/31/2024 9:45 AM EST Imaging Radiology [facility] 2nd [facility] [place] [address] [place] [address] 03/31/2024 10:30 AM EST Office Visit Gynecology/Obstetrics [address] [place] [address] Genny Ann CRNP [address] [place] [address] Nurse Ben [facility] Greg [address] [place] [address] Scheduled Orders Name Type Priority Associated Diagnoses [...]
--- OUTSIDE RECORDS SUMMARY | 2024-06-13 07:44 | External Medical Summary ---
Author Name Unknown Address Unknown Organization [id number]:LAB[facility]ATORY [facility] [place] - [address] [place] [address] Laboratory Report Ordering Provider Test Date Status LAYA MELTON 03/31/2024 10:31:20 Final Observation Date Value Abnormality Reference (Units ) Status Folic Acid 03/31/2024 10:31:20 15.1 >4.5 (ng/ mL) Final Performing Location LAB[facility]AT[facility] - [address] [place] [address]
[2024-06-13] MEDS ORDERED: ACETAMINOPHEN 500 MG TAB PO PRN (09:11)
[2024-06-13] MEDS ORDERED: OXYTOCIN 30 UNITS/NSS 30 UNITS/500 ML BAG IV PRN ×2 (09:11→20:38)
[2024-06-13] MEDS ORDERED: CALCIUM CARBONATE 500 MG CHEWABLE TAB PO PRN (09:11)
[2024-06-13] MEDS: miSOPROStoL 50 MCG TAB PO ONE ×2 (09:25→13:38)
[2024-06-13 09:48] LABS: Hematocrit (blood only) 33.4 % (37.0-47.0); Hemoglobin 11.5 g/dl (12.0-16.0); Mean Corpuscular Hemoglobin 30.3 pg (25.0-34.0); Mean Corpuscular Hgb Conc 34.4 g/dL (32.0-36.0); Mean Corpuscular Volume 88.1 fL (80.0-100.0); Mean Platelet Volume 10.2 fL (9.4-12.4); Platelet Count 277 K/uL (130-400); RDW Coefficient of Variation 13.3 % (11.5-14.5); RDW Standard Deviation 43.1 fL (36.4-46.3); Red Blood Count 3.79 M/uL (4.20-5.40); White Blood Count 10.43 K/ul (4.8-10.8)
--- NOTE | 2024-06-13 16:18 | History & Physical Report ---
Date of Service June 13, 2024 Assessment & Plan (1) Obesity affecting in third trimester, antepartum: Plan: Induction of labor. Admission and Anticipated Discharge Date Admission Date: June 13, 2024 History of Present Illness Chief Complaint: Intrauterine 39 weeks gestation. Primary Care Provider: Froy Carpenter Patient is a 29-year-old 2 para 1 she is in good general health. She had an uneventful course. was well dated with a first trimester ultrasound. Her due date is 06/20/2024. She had no problems. Previous delivery was in 2023 girl 6 pounds 9 ounces spontaneous vaginal delivery at 39 weeks induction for patient's weight. Presently is being induced at 39 weeks due to the maternal weight. Allergies Allergy/AdvReac Type Severity Reaction Status Date / Time nickel Allergy Intermediate Rash Verified 06/13/24 07:54 Cephalosporins Allergy Unknown CAN'T Verified 06/13/24 07:54 REMEMBER vancomycin AdvReac Intermediate Rash Verified 06/13/24 07:54 Home Medications Medication Instructions Recorded Confirmed Type vit no.133-ferrous 1 tab PO DAILY 12/03/22 05/17/23 History fumarate 28 mg-folic acid 800 mcg tablet () Past Med/Surg History Problem List (Updated 06/13/24 @ 07:54 by Nancy Ocampo RN) First trimester Medical History (Updated 06/13/24 @ 07:54 by Nancy Ocampo RN) Obesity affecting in third trimester, antepartum Social History Smoking Status: Never smoker Tobacco Type: Cigarettes Second Hand Exposure: No; Do You Dip or Chew Tobacco: No; Tobacco Cessation Education Requested by Patient: No Hx Alcohol Use: No Hx Substance Use: No Preferred Language: Croatian Communication Ability: Effective Bulk System Operator Required: No Beliefs That Will Affect Care: None marital status: Single Current Living Situation: Significant Other Current Living Situation Comment: Armando Evangelista- KENNAB/Rivka Nicole- Daughter Other Information That Helps Us Care for You: No Feels Safe at Home: Yes Safety Concerns: Feels Safe At This Time Assistive Devices: None Results & Data Results & Data Vital Signs (Past 12 Hours) Vital Signs Temp Pulse Resp BP 06/13/24 15:47 83 140/80 06/13/24 11:25 36.8 C 71 16 135/71 06/13/24 09:25 68 136/72 06/13/24 07:42 91 H 144/82 H 06/13/24 07:38 36.8 C 91 H 18 144/82 H Diagnostic Findings Reactive NST with normal baseline and good spgf-xe-hhan variability with some spontaneous accelerations Medications Administered P.o. Cytotec. IV Pitocin.
[2024-06-13] MEDS: LACTATED RINGER'S 1,000 ML IV PRN (17:50)
[2024-06-13] MEDS: OXYTOCIN 30 UNITS/NSS 30 UNITS/500 ML BAG IV PRN (18:15)
[2024-06-13] MEDS: METHYLERGONOVINE MALEATE 0.2 MG/ML AMP IM STA (20:22)
[2024-06-13] MEDS: LIDOCAINE 1% LOCAL 20 ML VIAL INFIL PRN (20:24)
[2024-06-13] MEDS ORDERED: HYDROCORTISONE ACETATE 25 MG SUPP PR PRN (20:38)
[2024-06-13] MEDS ORDERED: ACETAMINOPHEN 325 MG TAB PO PRN (20:38)
[2024-06-13] MEDS ORDERED: ACETAMINOPHEN W/CODEINE #3 1 TAB PO PRN (20:38)
[2024-06-13] MEDS ORDERED: bisacodyL 10 MG SUPP PR PRN (20:38)
[2024-06-13] MEDS ORDERED: oxyCODONE/ACETAMINOPHEN 5mg/325mg TAB PO PRN (20:38)
--- NOTE | 2024-06-13 20:43 | Delivery Summary ---
Vaginal Delivery Summary Date of Service June 13, 2024 Vaginal Delivery Summary Patient is a 2 para 2 followed in the office for care and delivery. She was well dated with a first trimester ultrasound. Brought on at 39 weeks gestation for induction due to obesity. On admission she was given 2 doses of Cytotec 4 hours apart. Then developed a fairly good labor pattern. This was augmented with IV Pitocin. She went to full dilatation and with about 1 push pushed out a live via direct occiput anterior position over an intact perineum. Cord was allowed to pulse for 1 minute then clamped and cut. Placenta was intact with IV Pitocin running. Inspection of the perineum revealed a first-degree perineal laceration. This was repaired with a running 2-0 Vicryl which approximated the vaginal mucosa out and to beyond the hymenal ring. A deep sutures used approximate the bulbocavernosus muscle. Second sutures used approximate the perineal body. A running subcuticular sutures used approximate the perineal skin edges. Sponges were removed from the vagina palpation revealed the vagina edges to be well-approximated. The repair was done with local anesthetic. Patient also received 800 mcg of Cytotec rectally. Quantitative blood loss was 18 mL. Patient tolerated delivery well.
[2024-06-13] MEDS: DIPHTHER/TETAN/PERTUS Vaccine (Tdap, Adol/Adult) 0.5mL IM ONE (21:45)
[2024-06-13] MEDS: miSOPROStoL 200 MCG TAB PR ONE ×2 (21:51→21:58)
[2024-06-13] MEDS: BENZOCAINE 20% SPRY 85 APPLN/85 GM CAN EXT PRN (21:52)
[2024-06-13] MEDS: DOCUSATE SODIUM 100 MG CAP PO SCH (21:59)
[2024-06-14] MEDS ORDERED: LABETALOL HCL 100 MG TAB PO SCH
[2024-06-14] MEDS: IBUPROFEN 600 MG TAB PO PRN (02:26)
[2024-06-14 08:16] LABS: Hematocrit (blood only) 31.4 % (37.0-47.0); Hemoglobin 10.8 g/dl (12.0-16.0); Mean Corpuscular Hemoglobin 30.2 pg (25.0-34.0); Mean Corpuscular Hgb Conc 34.4 g/dL (32.0-36.0); Mean Corpuscular Volume 87.7 fL (80.0-100.0); Mean Platelet Volume 10.1 fL (9.4-12.4); Platelet Count 263 K/uL (130-400); RDW Coefficient of Variation 13.2 % (11.5-14.5); RDW Standard Deviation 42.6 fL (36.4-46.3); Red Blood Count 3.58 M/uL (4.20-5.40); White Blood Count 14.54 K/ul (4.8-10.8)
[2024-06-14] MEDS: PRENATAL VITAMIN 1 TAB PO SCH (08:32)
[2024-06-14] MEDS: LABETALOL HCL 100 MG TAB PO SCH (08:37)
--- NOTE | 2024-06-14 10:01 | Obstetrical Progress Note ---
Date of Service June 14, 2024 Assessment & Plan Admission and Anticipated Discharge Date Admission Date: June 13, 2024 Subjective Patient is seen and examined. She feels well, no complaints. Desires d/c tonight. Ambulating without dizziness Voiding without difficulty Tolerating regular diet with out N&V Bleeding is minimal No BURCH/ Change in vision/ epig or RUQ pain/ fever/ chills/ CP/ SOB/ N&V/ Leg pain Bottle feeding without problems Lab Results 06/13/24 06/14/24 Range/Units 09:18 07:46 WBC 10.43 14.54 H (4.8-10.8) K/ul RBC 3.79 L 3.58 L (4.20-5.40) M/uL Hgb 11.5 L 10.8 L (12.0-16.0) g/dl Hct 33.4 L 31.4 L (37.0-47.0) % MCV 88.1 87.7 (80.0-100.0) fL MCH 30.3 30.2 (25.0-34.0) pg MCHC 34.4 34.4 (32.0-36.0) g/dL RDW Std Deviation 43.1 42.6 (36.4-46.3) fL RDW Coeff of Roz 13.3 13.2 (11.5-14.5) % Plt Count 277 263 (130-400) K/uL MPV 10.2 10.1 (9.4-12.4) fL Treponema pallidum Ab Negative (Negative) Blood Type A Positive Antibody Screen NEGATIVE Vital Signs Temp Pulse Pulse Resp BP BP Pulse Ox 06/14/24 02:20 36.8 C 84 18 150/88 H 96 06/13/24 23:00 37.0 C 80 18 140/83 97 06/13/24 22:38 37.0 C 18 06/13/24 22:38 83 139/75 06/13/24 22:36 81 152/93 H 06/13/24 22:21 73 145/73 H 06/13/24 22:06 18 06/13/24 22:06 82 149/72 H O2 Del Method 06/14/24 02:20 Room Air 06/13/24 23:00 Room Air 06/13/24 22:38 06/13/24 22:38 06/13/24 22:36 06/13/24 22:21 06/13/24 22:06 06/13/24 22:06 PE: General: Alert, orientedx3, NAD Abd: soft, NT, fundus firm, below Umbilicus Perineum intact, Lochia rubra minimal Ext; NT, no edema AP: 28 yo s/p , ppd# 1 VSS Afebrile doing well Elevated BP's, asymptomatic, started Labetalol, last 2 BP's WNL, not recorded into this chart yet Continue to monitor BP's today, if stable consider d/c tonight per patient;s request Continue routine care All questions were answered Results & Data Vital Signs (Past 12 Hours) Vital Signs Temp Pulse Pulse Resp BP BP Pulse Ox 06/14/24 02:20 36.8 C 84 18 150/88 H 96 06/13/24 23:00 37.0 C 80 18 140/83 97 06/13/24 22:38 37.0 C 18 06/13/24 22:38 83 139/75 06/13/24 22:36 81 152/93 H 06/13/24 22:21 73 145/73 H 06/13/24 22:06 18 06/13/24 22:06 82 149/72 H O2 Del Method 06/14/24 02:20 Room Air 06/13/24 23:00 Room Air 06/13/24 22:38 06/13/24 22:38 06/13/24 22:36 06/13/24 22:21 06/13/24 22:06 06/13/24 22:06
[2024-06-14 19:29] VITALS: TEMP 97.7
[2024-06-14 19:32] VITALS: BP 142/87; PULSE 92; RESP 18; O2SAT 98
[2024-06-14] MEDS ORDERED: OR MISCELLANEOUS MED ONE (20:21)
[2024-06-14] MEDS: bisacodyL 5 MG TABEC PO SCH (20:48)
== END 2024-06-14 20:57 | disposition home health service (06) | DRG 806 ==
LOC: 4S1 07:24 → 4E2 23:09